=== PATIENT | male | born 1945 | race Caucasian/White ===

== ENCOUNTER 2024-07-17 10:54 | Outpatient (AMB) | payer MEDICARE, SELFPAY ==
--- NOTE | 2024-07-17 11:13 | A.OFFPC_ITS ---
Vital Signs 07/17/24 11:18 Height 6 ft 0.13 in Weight 162 lb 4 oz BMI 21.9 BP 110/56 L Blood Pressure Location Lt brachial Position Sitting Respiration 12 Pulse 91 Pulse Source Pulse Oximeter Pulse Oximetry (%) 96 Oxygen Delivery Method Room Air Intake Visit Reasons: EST CARE Intake Note: New patient visit [employer] Required: No Allergies No Known Allergies Allergy (Verified 07/17/24 11:14) Tobacco use date assessed: 07/17/24 Fall risk assessment: No Falls in past year Last assessed Fall Risk: 07/17/24 Dental Screening Dental Screen Date: 07/17/24 Did you have a dental visit in the last 12 months?: No Did you have a dental problem in the last 6 months where you did not have access to dental care?: No Was dental information given to patient?: Patient declined (has false teeth) HPI HPI Comments History of Present Illness Details This is a 79-year-old male with a past medical history of hypertension, hyperlipidemia, peripheral arterial disease and coronary artery disease [place] [facility] [place] [facility]. We have not received medical records yet. Peripheral arterial disease-bilateral lower extremities. Patient says this improved on recent studies that were done by [facility] vascular surgery. He has a follow up with them on 08/06/2024. Patient says he also has a right carotid artery occlusion, and the left carotid artery also has stenosis around 50%. They are monitoring this. He is on ASA 81 mg and rosuvastatin 5 mg daily. Coronary artery disease-CABG x [address] some [address] Candelario. Released from cardiology follow up. Denies chest pain, palpitations, shortness of breath, dizziness and leg swelling. HTN-treated with valsartan 160 mg daily. Hyperlipidiemia-treated with rosuvastatin 5 mg daily. Emphysema-never smoked but had a lot of second hand smoke exposure. States he is is up-to-date with RSV, COVID, flu and pneumonia vaccine. Patient discontinued routine screening for colon cancer citing his age. Declines PSA testing. ROS: Constitutional: No unexplained weight loss, fever, chills, fatigue or night sweats. Respiratory: No shortness of breath, cough or sputum production. Cardiovascular: No chest pain, chest pressure or chest discomfort. No palpitations or pedal edema. Gastrointestinal: No anorexia, nausea, vomiting or diarrhea. No abdominal pain Neurologic: No headache, dizziness, syncope Endocrine: No cold or heat intolerance. No polyuria or polydipsia. Physical exam: Constitutional: Alert, in no distress. Head: Normocephalic. Neck: Supple, Full range of motion. No lymphadenopathy. Respiratory: Clear to auscultation. Cardiovascular: Irregular rhythm, normal rate. No murmurs. Gastrointestinal: Abdomen soft, non-tender, non-distended. Normal bowel sounds. No palpable masses. Neurologic: No focal neurological deficits Extremities: Warm and well perfused. No clubbing, cyanosis or edema. trace bilateral lower extremity edema. Psychiatric: Normal mood and affect [facility] Medical History (Updated 07/17/24 @ 13:08 by RADAMES Giordano) Irregular heart rhythm Coronary artery disease PAC (premature atrial contraction) Essential hypertension Pure hypercholesterolemia PAD (peripheral artery disease) Surgical History (Updated 07/17/24 @ 13:13 by RADAMES Giordano) S/P partial lobectomy of lung S/P CABG x 4 Social History (Updated 07/17/24 @ 11:36 by Alice Iverson [facility]) Housing: House Alcohol intake: never Patient Tobacco Use Status: Never used Tobacco e-Cigarette/Vaping Use: Never Used Second Hand Smoke Exposure: No Cognitive needs: No Hearing needs: Yes (hearing aids) Vision needs: No Questionnaire PHQ-9 Over the last 2 weeks, how often have you been bothered by any of the following problems? 1. Little interest or pleasure in doing things: not at all 2. Feeling down, depressed, or hopeless: not at all 3. Trouble falling or staying asleep, or sleeping too much: not at all 4. Feeling tired or having little energy: not at all 5. Poor appetite or overeating: not at all 6. Feeling bad about yourself - or that you are a failure or have let yourself or your family down: not at all 7. Trouble concentrating on things, such as reading the newspaper or watching television: not at all 8. Moving or speaking so slowly that other people could have noticed. Or the opposite - being so fidgety or restless that you have been moving around a lot more than usual: not at all 9. Thoughts that you would be better off or of hurting yourself in some way: not at all Total score: 0 Depression Screening Interpretation: Negative Depression Screening Done: Yes 98780 - PHQ-9 Billing: Yes Source: Developed by Drs. Rober Garrido, Matilda Martin, Tyree Lorenzo and colleagues, with an educational madison from [employer]. Thrive Questionnaire Date Thrive assessed: 07/17/24 I am a: Patient What is your living situation today?: I have a steady place to live Within the past 12 months, did the food you bought not last and you didn't have the money to get more?: Never true Within the past 12 months, did you worry whether your food would run out before you got money to buy more?: Never true Do you have trouble paying for medicines?: No Do you have trouble getting transportation to medical appointments?: No Do you have trouble paying your heating and electricity bill?: No Do you have trouble taking care of your child, family member or friend?: No Do you have trouble with day-to-day activities such as bathing, preparing meals, shopping, managing finances, etc.?: No Are you currently unemployed and looking for a job?: No Are you interested in more education?: No Please select the resources that you would like help with: None Currently or been in a relationship where the following occur: No concerns reported THRIVE Score: 0 AUDIT C Alcohol Use Questionnaire (AUDIT-C) 1. How often do you have a drink containing alcohol?: Never 3. How often do you have six or more drinks on one occasion?: Never Total Score: 0 EDDIE-7 AMB Questionnaire EDDIE-7 Date EDDIE - 7 assessed: 07/17/24 Feeling nervous, anxious, or on edge: 0 = Not at all Not being able to stop or control worryin = Not at all Worrying too much about different things: 0 = Not at all Trouble relaxin = Not at all Being so restless that it is hard to sit still: 0 = Not at all Becoming easily annoyed or irritable: 0 = Not at all Feeling afraid as if something awful might happen: 0 = Not at all Total EDDIE-7 score (0-4 normal; 5-9 mild; 10-14 moderate; 15-21 severe): 0 Source: Developed by Matilda White, Tyree Lorenzo and colleagues, with an educational madison from [employer]. EDDIE-7 Assessment Billing EDDIE-7 Assessment Tool: EDDIE-7 Assessment 59953 Physical exam (Primary Care) Vital Signs: Last Vital Signs Pulse 91 07/17/24 11:18 Resp 12 07/17/24 11:18 BP 110/56 L 07/17/24 11:18 Pulse Ox 96 07/17/24 11:18 Oxygen Delivery Method Room Air 07/17/24 11:18 BMI result Body Mass Index 21.9 Tobacco/Smoking Status: Tobacco use Status Tobacco use date assessed 07/17/24 07/17/24 11:20 Patient Tobacco Use Status Never used Tobacco 07/17/24 11:36 e-Cigarette/Vaping Use Never Used 07/17/24 11:36 PHQ-9: PHQ-9 Score PHQ-9: Total score 0 07/17/24 11:37 Depression Screening Interpretation: Negative Thrive Assessment: Date of Thrive Assessment Date Thrive assessed 07/17/24 07/17/24 11:37 Currently or been in a relationship where the following occur: No concerns reported Office Procedures EKG Details: The patient's EKG shows sinus rhythm with premature atrial complexes and aberrant conduction with a ventricular rate of 73 beats per minute. [id number], Complete Coding Level of Care Code New Pt Level 4 (34766) Complex EM visit Add On G2211 Diagnoses Irregular heart rhythm I49.9 PAC (premature atrial contraction) I49.1 S/P CABG x 4 Z95.1 Essential hypertension I10 Pure hypercholesterolemia E78.00 PAD (peripheral artery disease) I73.9 Coronary artery disease I25.10 CPT Codes EKG - CPT: 28055-[id number], Complete ([id number]) Additional Codes EDDIE-7 Assessment Billing - EDDIE-7 Assessment Tool: EDDIE-7 Assessment 94503 ([id number]) PHQ-9 - 77226 - PHQ-9 Billing: Yes ([id number]) Assessment & Plan Assessment & Plan (1) Irregular heart rhythm: Code(s): I49.9 - Cardiac arrhythmia, unspecified Category: Medical (2) PAC (premature atrial contraction): Code(s): I49.1 - Atrial premature depolarization Category: Medical (3) S/P CABG x 4: Code(s): Z95.1 - Presence of aortocoronary bypass graft Category: Surgical (4) Essential hypertension: Code(s): I10 - Essential (primary) hypertension Category: Medical (5) Pure hypercholesterolemia: Code(s): E78.00 - Pure hypercholesterolemia, unspecified Category: Medical (6) PAD (peripheral artery disease): Code(s): I73.9 - Peripheral vascular disease, unspecified Category: Medical (7) Coronary artery disease: Code(s): I25.10 - Atherosclerotic heart disease of [place] coronary artery without angina pectoris Category: Medical Plan In summary this is a 79-year-old male with a past medical history of cardiovascular disease who [place] [facility] [place] His heart rhythm was irregular on evaluation, but his EKG shows sinus rhythm with PACs and no heart block or evidence of atrial fibrillation. He denies symptoms associated with PACs so we will continue to monitor. His blood pressure is well-controlled. He will return for fasting labs. Continue current medications. He is followed by [facility] vascular surgery for PID and has a follow up in July. Recommended Mediterranean diet and avoidance of smoking and alcohol. Follow up in 4 months. Orders: Orders Complete Blood Count no Diff Today E78.00 - Pure hypercholesterolemia, unspecified, I10 - Essential (primary) hypertension, I73.9 - Peripheral vascular disease, unspecified, Z95.1 - Presence of aortocoronary bypass graft Lipid Panel Today E78.00 - Pure hypercholesterolemia, unspecified, E78.5 - Hyperlipidemia, unspecified, I10 - Essential (primary) hypertension, I73.9 - Peripheral vascular disease, unspecified, Z95.1 - Presence of aortocoronary bypass graft TSH reflex Free T4 Today E78.00 - Pure hypercholesterolemia, unspecified, I10 - Essential (primary) hypertension, I73.9 - Peripheral vascular disease, unspecified, Z95.1 - Presence of aortocoronary bypass graft Comprehensive Met. Panel Today E78.00 - Pure hypercholesterolemia, unspecified, I10 - Essential (primary) hypertension, I73.9 - Peripheral vascular disease, unspecified, Z95.1 - Presence of aortocoronary bypass graft AMB EKG-In Office Today I49.9 - Cardiac arrhythmia, unspecified
[2024-07-17 11:18] VITALS: BP 110/56; PULSE 91; RESP 12; O2SAT 96; BMI 21.9
== END 2024-07-17 12:24 | disposition home or self-care (01) ==
LOC: HO.HMCFM 10:54
PROVIDERS: PCP Physician Assistant Medical; Visit Provider Physician Assistant Medical
DX: I49.9 Cardiac arrhythmia, unspecified (principal); I73.9 Peripheral vascular disease, unspecified; I49.1 Atrial premature depolarization; Z95.1 Presence of aortocoronary bypass graft; I10 Essential (primary) hypertension; E78.00 Pure hypercholesterolemia, unspecified; I25.10 Atherosclerotic heart disease of native coronary artery without angina pectoris

== ENCOUNTER → 2024-07-17 10:54 | Outpatient (BNVA) | payer MEDICARE, SELFPAY | PROVIDERS: PCP Physician Assistant Medical; Visit Provider Physician Assistant Medical | DX: I49.9 Cardiac arrhythmia, unspecified (principal); I49.1 Atrial premature depolarization; I10 Essential (primary) hypertension; E78.00 Pure hypercholesterolemia, unspecified; I73.9 Peripheral vascular disease, unspecified; I25.10 Atherosclerotic heart disease of native coronary artery without angina pectoris; J43.9 Emphysema, unspecified; Z79.899 Other long term (current) drug therapy; Z95.1 Presence of aortocoronary bypass graft | CPT/HCPCS: 93005; 96127; 99202 ==

== ENCOUNTER 2024-07-18 09:41 | Outpatient (REF) | payer MEDICARE, SELFPAY ==
[2024-07-18 11:37] LABS: Hematocrit 39.4 % (42.0-52.0); Hemoglobin 13.7 g/dl (14.0-18.0); Mean Corpuscular HGB Conc 34.8 g/dl (31.0-36.0); Mean Corpuscular Hemoglobin 31.8 pg (27.0-33.0); Mean Corpuscular Volume 91.4 fL (80.0-98.0); Mean Platelet Volume 8.6 fL (9.4-12.4); Platelet Count 279 X10*3/uL (160-400); Red Blood Count 4.31 X10*6/uL (4.60-5.80); Red Cell Distribution Width 13.3 % (11.0-16.0)
[2024-07-18 11:46] LABS: Alanine Aminotransferase 11 U/L (0-40); Albumin Level 3.8 g/dL (3.5-5.0); Alkaline Phosphatase 87 U/L (39-117); Anion Gap 11 (12-20); Aspartate Amino Transferase 25 U/L (5-37); Bilirubin Total 0.6 mg/dL (0.0-1.0); Blood Urea Nitrogen 21 mg/dL (9-16); Calcium 8.9 mg/dL (8.4-10.2); Carbon Dioxide 21 mmol/L (22-29); Chloride 112 mmol/L (96-108); Cholesterol 138 mg/dL (<200); Estimated Glomerular Filt Rate > 60; Glucose Random 121 mg/dL (60-115); HDL Cholesterol 43 mg/dL (>40); LDL Cholesterol Calculated 82 mg/dL (<100); Potassium 4.6 mmol/L (3.3-5.1); Sodium 139 mmol/L (135-145); Total Protein 7.2 g/dL (6.5-8.0); Triglycerides 65 mg/dL (<150)
[2024-07-18 12:04] LABS: TSH reflex Free T4 1.07 uIU/mL (0.32-4.0)
== END 2024-07-18 09:42 | disposition home or self-care (01) ==
LOC: HO.WFDLDS 09:41
PROVIDERS: Visit Provider Physician Assistant Medical
DX: I73.9 Peripheral vascular disease, unspecified (principal); E78.00 Pure hypercholesterolemia, unspecified; I10 Essential (primary) hypertension; Z95.1 Presence of aortocoronary bypass graft; E78.5 Hyperlipidemia, unspecified
CPT/HCPCS: 36415; 80053; 80061; 84443; 85027

== ENCOUNTER 2024-08-11 08:12 | Outpatient (AMB) | payer MEDICARE, SELFPAY ==
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
[2024-08-11 08:18] VITALS: BP 142/80; PULSE 90; RESP 13; TEMP 36.4; O2SAT 97; BMI 24.1
--- OUTSIDE RECORDS SUMMARY | 2024-08-11 08:33 | XMS_ITS ---
Author Organization [facility] Address [address] [place] [id number] Care Team Providers Care Diversity Manager Name Role Phone CHIO MENDENHALL Primary Care Provider [phone] Nichelle Salgado Unavailable [phone] ALLERGIES No Known Allergies REASON FOR VISIT f/u labs MEDICATIONS Medication SIG (Take, Route, Frequency, Duration) Notes Start Date End Date Status traZODone HCl 50 MG 1/2 tablet at bedtime as needed Orally Once a day 02/12/2024 Active Valsartan 160 MG 1 tablet Orally Once a day for 90 days 03/19/2024 Active metFORMIN HCl 500 MG TAKE 1 TABLET BY MOUTH TWICE A DAY WITH A MEAL FOR 30 DAYS Active Rosuvastatin Calcium 5 MG TAKE 1 TABLET BY MOUTH EVERY DAY Active Metoprolol Succinate ER 100 MG Oral metoprolol succinate ER 100 mg tablet,extended release 24 hr 12/29/2021 Not-Taking Aspirin Adult Low Strength 81 MG Oral aspirin 81 mg tablet,delayed release 12/29/2021 Active amLODIPine Besylate 5 MG TAKE 1 TABLET BY MOUTH EVERY DAY Active Prevagen 10 MG as directed Orally Active Levocetirizine Dihydrochloride 5 MG Oral levocetirizine 5 mg tablet 01/16/2022 Active Aricept 5 MG 1 tablet at bedtime Orally Once a day Not-Taking SOCIAL HISTORY Tobacco Use: Social History Observation Description Date Details (start date - stop date) Never Smoker NA - NA Sex Assigned At : Social History Observation Description Sex Assigned At Unknown Household Question Answer Notes Marital status: Number of adults in household: 2 Tobacco Use/Smoking Question Answer Notes Tobacco use: nonsmoker Section Notes: Lives in [place], [place] with VITAL SIGNS Blood pressure systolic 134 mm Hg 03/19/20 24 Blood pressure diastolic 62 mm Hg 024 Heart Rate 67 /min 03/19/2024 Height 65 in 03/19/2024 Weight 183.4 lbs 03/19/2024 BMI 30.52 kg/m2 03/19/2024 Oximetry 97 % 03/19/2024 Height-cm 165.10 cm 03/19/2024 Weight-kg 83.19 kg 03/19/2024 Encounters Encounter Location Date Provider Diagnosis [address] [id number] 03/19/2024 Nichelle Salgado Mixed hyperlipidemia E78.2 ; Pre-diabetes R73.03 ; Primary hypertension I10 and Primary insomnia F51.01 ASSESSMENTS Encounter Date Diagnosis Assessment Notes Treatment Notes Treatment Clinical Notes Section Notes 03/19/2024 Mixed hyperlipidemia (ICD-10 - E78.2) Continue current statin Low fat, low cholesterol diet Exercise Check lipids, LFTs 03/19/2024 Pre-diabetes (ICD-10 - R73.03) Lifestyle modification All patients with IGT, IFG, or an A1C of 5.7 to 6.4 percent (39 to 46 mmol/mol) (table 3) should be provided with a comprehensive lifestyle modification program that includes: Behavior modification Dietary therapy Physical activity Smoking cessation The goal of the lifestyle intervention is weight loss with return to normal glycemia. Regular reinforcement of the program is important for successful compliance. Although insulin resistance and impaired insulin secretion in type 2 diabetes have a substantial genetic component, they can also be influenced, both positively and negatively, by environmental and behavioral factors. Changes in lifestyle, including diet modification, weight loss, and exercise, slow progression of IGT to overt diabetes [4-7]. The beneficial effects of such intervention appear to continue after the original intervention Assess response to lifestyle intervention For patients with abnormal glucose metabolism (FPG 100 to 125 mg/dL or A1C 5.7 to 6.4 percent) participating in a lifestyle modification program, we reassess fasting glucose or A1C annually. Management if lifestyle intervention unsuccessful - For select patients (age <60 years and/or BMI greater than or equal to35 kg/m2, history of gestational diabetes) in whom lifestyle interventions fail to improve glycemic indices, we suggest metformin for diabetes prevention Exercise Although there is no one exercise prescription for all individuals, adults at high risk for diabetes are encouraged to perform 30 to 60 minutes of moderate-intensit y aerobic activity on most days of the week (at least 150 minutes of moderate-intensit y aerobic exercise per week). Diet We suggest choosing a dietary pattern of healthful foods, such as the Dietary Approaches to Stop Hypertension (DASH) or Mediterranean-sty le diet, rather than focusing on a specific nutrient. This approach allows greater flexibility and personal preference in diet and may improve long-term adherence Smoking Several large, prospective, observational studies have shown that cigarette smoking increases the risk of type 2 diabetes. The effect of smoking cessation on diabetes risk is variable and may depend upon individual patient factors. Smoking cessation may reduce diabetes risk by reducing systemic inflammation. On the other hand, smoking cessation is often associated with weight gain, which will increase the risk of diabetes. For individuals with IFG, IGT, or A1C of 5.7 to 6.4 percent (39 to 46 mmol/mol) who are candidates for obesity pharmacotherapy, semaglutide used for the treatment of obesity may help reduce the risk of progression to type 2 diabetes. 03/19/2024 Primary hypertension (ICD-10 - I10) Continue medication as directed Low-salt diet Weight management Regular exercise Yearly microalbumin 03/19/2024 Primary insomnia (ICD-10 - F51.01) Sleeping well means getting enough sleep to feel good and stay healthy. How much sleep is enough varies among people. The number of hours you sleep and how you feel when you wake up are both important. If you do not feel refreshed, you probably need more sleep. Another sign of not getting enough sleep is feeling tired during the day. Experts recommend that adults get at least 7 or more hours of sleep per day. Children and older adults need more sleep. Why is getting enough sleep important? Getting enough quality sleep is a basic part of good health. When your sleep suffers, your physical health, mood, and your thoughts can suffer too. You may find yourself feeling more grumpy or stressed. Not getting enough sleep also can lead to serious problems, including injury, accidents, anxiety, and depression. What might cause poor sleeping? Many things can cause sleep problems, including: Changes to your sleep schedule. Stress. Stress can be caused by fear about a single event, such as giving a speech. Or you may have ongoing stress, such as worry about work or school. Depression, anxiety, and other mental or emotional conditions. Changes in your sleep habits or surroundings. This includes changes that happen where you sleep, such as noise, light, or sleeping in a different bed. It also includes changes in your sleep pattern, such as having jet lag or working a late shift. Health problems, such as pain, breathing problems, and restless legs syndrome. Lack of regular exercise. Using alcohol, nicotine, or caffeine before bed. How can you help yourself? Here are some tips that may help you sleep more soundly and wake up feeling more refreshed. Your sleeping area Use your bedroom only for sleeping and sex. A bit of light reading may help you fall asleep. But if it doesn't, do your reading elsewhere in the house. Try not to use your TV, computer, smartphone, or tablet while you are in bed. Be sure your bed is big enough to stretch out comfortably, especially if you have a sleep partner. Keep your bedroom quiet, dark, and cool. Use curtains, blinds, or a sleep mask to block out light. To block out noise, use earplugs, soothing music, or a white noise machine. Your evening and bedtime routine Create a relaxing bedtime routine. You might want to take a warm shower or bath, or listen to soothing music. Go to bed at the same time every night. And get up at the same time every morning, even if you feel tired. What to avoid Limit caffeine (coffee, tea, caffeinated sodas) during the day, and don't have any for at least 6 hours before bedtime. Avoid drinking alcohol before bedtime. Alcohol can cause you to wake up more often during the night. Try not to smoke or use tobacco, especially in the evening. Nicotine can keep you awake. Limit naps during the day, especially close to bedtime. Avoid lying in bed awake for too long. If you can't fall asleep or if you wake up in the middle of the night and can't get back to sleep within about 20 minutes, get out of bed and go to another room until you feel sleepy. Avoid taking medicine right before bed that may keep you awake or make you feel hyper or energized. Your doctor can tell you if your medicine may do this and if you can take it earlier in the day. If you can't sleep Imagine yourself in a peaceful, pleasant scene. Focus on the details and feelings of being in a place that is relaxing. Get up and do a quiet or boring activity until you feel sleepy. Avoid drinking any liquids before going to bed to help prevent waking up often to use the bathroom. 03/19/2024 Other Total time spen t with patient 32 minutes which includes face to face visit, education and coordination of care. PLAN OF TREATMENT Medication Medication Name Sig Start Date Stop Date Notes traZODone HCl 50 MG 1/2 tablet at bedtime as needed Orally Once a day 02/12/2024 Valsartan 160 MG 1 tablet Orally Once a day for 90 days 03/19/2024 metFORMIN HCl 500 MG TAKE 1 TABLET BY MOUTH TWICE A DAY WITH A MEAL FOR 30 DAYS Rosuvastatin Calcium 5 MG TAKE 1 TABLET BY MOUTH EVERY DAY Valsartan 320 MG 1 tablet Orally Once a day 12/11/2023 Aspirin Adult Low Strength 81 MG Oral 12/29/2021 aspirin 81 mg tablet,delayed release amLODIPine Besylate 5 MG TAKE 1 TABLET B Y MOUTH EVERY DAY Prevagen 10 MG as directed Orally Levocetirizine Dihydrochloride 5 MG Oral 01/16/2022 levocetiriz ine 5 mg tablet Treatment Notes Assessment Notes Mixed hyperlipidemia Continue current statin Low fat, low cholesterol diet Exercise Check lipids, LFTs Pre-diabetes Lifestyle modification All patients with IGT, IFG, or an A1C of 5.7 to 6.4 percent (39 to 46 mmol/mol) (table 3) should be provided with a comprehensive lifestyle modification program that includes: Behavior modification Dietary therapy Physical activity Smoking cessation The goal of the lifestyle intervention is weight loss with return to normal glycemia. Regular reinforcement of the program is important for successful compliance. Although insulin resistance and impaired insulin secretion in type 2 diabetes have a substantial genetic component, they can also be influenced, both positively and negatively, by environmental and behavioral factors. Changes in lifestyle, including diet modification, weight loss, and exercise, slow progression of IGT to overt diabetes [4-7]. The beneficial effects of such intervention appear to continue after the original intervention Assess response to lifestyle intervention For patients with abnormal glucose metabolism (FPG 100 to 125 mg/dL or A1C 5.7 to 6.4 percent) participating in a lifestyle modification program, we reassess fasting glucose or A1C annually. Management if lifestyle intervention unsuccessful - For select patients (age <60 years and/or BMI greater than or equal to35 kg/m2, history of gestational diabetes) in whom lifestyle interventions fail to improve glycemic indices, we suggest metformin for diabetes prevention Exercise Although there is no one exercise prescription for all individuals, adults at high risk for diabetes are encouraged to perform 30 to 60 minutes of moderate-intensity aerobic activity on most days of the week (at least 150 minutes of moderate-intensity aerobic exercise per week). Diet We suggest choosing a dietary pattern of healthful foods, such as the Dietary Approaches to Stop Hypertension (DASH) or Mediterranean-style diet, rather than focusing on a specific nutrient. This approach allows greater flexibility and personal preference in diet and may improve long-term adherence Smoking Several large, prospective, observational studies have shown that cigarette smoking increases the risk of type 2 diabetes. The effect of smoking cessation on diabetes risk is variable and may depend upon individual patient factors. Smoking cessation may reduce diabetes risk by reducing systemic inflammation. On the other hand, smoking cessation is often associated with weight gain, which will increase the risk of diabetes. For individuals with IFG, IGT, or A1C of 5.7 to 6.4 percent (39 to 46 mmol/mol) who are candidates for obesity pharmacotherapy, semaglutide used for the treatment of obesity may help reduce the risk of progression to type 2 diabetes. Primary hypertension Continue medication as directed Low-salt diet Weight management Regular exercise Yearly microalbumin Primary insomnia Sleeping well means getting enough sleep to feel good and stay healthy. How much sleep is enough varies among people. The number of hours you sleep and how you feel when you wake up are both important. If you do not feel refreshed, you probably need more sleep. Another sign of not getting enough sleep is feeling tired during the day. Experts recommend that adults get at least 7 or more hours of sleep per day. Children and older adults need more sleep. Why is getting enough sleep important? Getting enough quality sleep is a basic part of good health. When your sleep suffers, your physical health, mood, and your thoughts can suffer too. You may find yourself feeling more grumpy or stressed. Not getting enough sleep also can lead to serious problems, including injury, accidents, anxiety, and depression. What might cause poor sleeping? Many things can cause sleep problems, including: Changes to your sleep schedule. Stress. Stress can be caused by fear about a single event, such as giving a speech. Or you may have ongoing stress, such as worry about work or school. Depression, anxiety, and other mental or emotional conditions. Changes in your sleep habits or surroundings. This includes changes that happen where you sleep, such as noise, light, or sleeping in a different bed. It also includes changes in your sleep pattern, such as having jet lag or working a late shift. Health problems, such as pain, breathing problems, and restless legs syndrome. Lack of regular exercise. Using alcohol, nicotine, or caffeine before bed. How can you help yourself? Here are some tips that may help you sleep more soundly and wake up feeling more refreshed. Your sleeping area Use your bedroom only for sleeping and sex. A bit of light reading may help you fall asleep. But if it doesn't, do your reading elsewhere in the house. Try not to use your TV, computer, smartphone, or tablet while you are in bed. Be sure your bed is big enough to stretch out comfortably, especially if you have a sleep partner. Keep your bedroom quiet, dark, and cool. Use curtains, blinds, or a sleep mask to block out light. To block out noise, use earplugs, soothing music, or a white noise machine. Your evening and bedtime routine Create a relaxing bedtime routine. You might want to take a warm shower or bath, or listen to soothing music. Go to bed at the same time every night. And get up at the same time every morning, even if you feel tired. What to avoid Limit caffeine (coffee, tea, caffeinated sodas) during the day, and don't have any for at least 6 hours before bedtime. Avoid drinking alcohol before bedtime. Alcohol can cause you to wake up more often during the night. Try not to smoke or use tobacco, especially in the evening. Nicotine can keep you awake. Limit naps during the day, especially close to bedtime. Avoid lying in bed awake for too long. If you can't fall asleep or if you wake up in the middle of the night and can't get back to sleep within about 20 minutes, get out of bed and go to another room until you feel sleepy. Avoid taking medicine right before bed that may keep you awake or make you feel hyper or energized. Your doctor can tell you if your medicine may do this and if you can take it earlier in the day. If you can't sleep Imagine yourself in a peaceful, pleasant scene. Focus on the details and feelings of being in a place that is relaxing. Get up and do a quiet or boring activity until you feel sleepy. Avoid drinking any liquids before going to bed to help prevent waking up often to use the bathroom. Other Total time spent wit h patient 32 minutes which includes face to face visit, education and coordination of care. Future Test Test Name Order Date COMPREHENSIVE METABOLIC PANEL (75622) CBC (INCLUDES DIFF/PLT) (6399) CARDIO IQ(R) HS CRP (94322) 03/19/2024 CARDIO IQ(R) HEMOGLOBIN A1c (64138) 03/01 CARDIO IQ(R) HOMOCYSTEINE (36511) 2023 CARDIO IQ(R) VITAMIN D, 25 HYDROXY (9173 5) 03/19/2024 Next Appt Details Follow Up: 3 Weeks,3 Months, Reason: FU BP; FU 3M Labs Progress Notes * YEMI GILMOREDOB: 5 (79 yo M)Acc No.[id number]:03/19/2024 Progress Notes Patient:??MANDO YEMI Provider:??Nichelle Salgado DNP :1945?Age:79 Y?Sex:Ma le Date:03/19/2024 Phone: Address:[address] [place] [address], [id number] Pcp:CHIO MENDENHALL Subjective: * Chief Complaints: * ?F/u labs * HPI: ?Patient Care Team:?Software Product Specialist:??Dr. Glass.? Providers/Specialists: Vascular: Dr. Funes. ?Visit info:? Yemi presents today for f/u lab review. ?He notes that the Valsartan 320mg is too strong - states he felt pain in chest after taking. He has since been cutting in 1/2 and taking 1/2 daily and no longer getting pain in chest feeling. * ROS:?Reviewed. * Medical History:?? * Surgical History:??Rt. lung, Lobectomy (lung infection) 1970Angioplasty 1987, 1997 o4Womtrbs Cath (Quadruple Bypass) 2010Cataract Surgery * Hospitalization/Major Diagno stic Procedure:?? * Family History:??Father: dec eased 72 yrs, Bladder CA.??Mother: 82 yrs, Alzheimer's.??Sister: alive, Alzheimer's.??2 son(s) , 1 daughter(s) - healthy. .?? * Social History:?Tobacco Use:??Tobacco Use/Smoking??Tobacco use:??nonsmoker.?Drugs/Alcohol:??Do you smoke marijuana?: Denies. Do you drink alcohol?: Yes, Socially. ?Household:??Household??Marital status:??,??Number of adults in household:??2.?Miscellaneous:??Exercise: daily, for 30-60 minutes a day. Occupation: retired. ?Lives in [place], [place] with . * Medications:??TakingPrevagen 10 MG Capsule as directed Orally Levocetirizine Dihydrochloride 5 MG Tablet Oral , Notes to Pharmacist: levocetirizine 5 mg tabletamLODIPine Besylate 5 MG Tablet TAKE 1 TABLET BY MOUTH EVERY DAY Aspirin Adult Low Strength 81 MG Tablet Delayed Release Oral , Notes to Pharmacist: aspirin 81 mg tablet,delayed releaseValsartan 320 MG Tablet 1 tablet Orally Once a day metFORMIN HCl 500 MG Tablet TAKE 1 TABLET BY MOUTH TWICE A DAY WITH A MEAL FOR 30 DAYS Rosuvastatin Calcium 5 MG Tablet TAKE 1 TABLET BY MOUTH EVERY DAY traZODone HCl 50 MG Tablet 1/2 tablet at bedtime as needed Orally Once a day Taking Prevagen 10 MG Capsule as directed Orally Taking Levocetirizine Dihydrochloride 5 MG Tablet Oral , Notes to Pharmacist: levocetirizine 5 mg tabletTaking amLODIPine Besylate 5 MG Tablet TAKE 1 TABLET BY MOUTH EVERY DAY Taking Aspirin Adult Low Strength 81 MG Tablet Delayed Release Oral , Notes to Pharmacist: aspirin 81 mg tablet,delayed releaseTaking Valsartan 320 MG Tablet 1 tablet Orally Once a day Taking metFORMIN HCl 500 MG Tablet TAKE 1 TABLET BY MOUTH TWICE A DAY WITH A MEAL FOR 30 DAYS Taking Rosuvastatin Calcium 5 MG Tablet TAKE 1 TABLET BY MOUTH EVERY DAY Taking traZODone HCl 50 MG Tablet 1/2 tablet at bedtime as needed Orally Once a day Not- TakingAricept 5 MG Tablet 1 tablet at bedtime Orally Once a day Metoprolol Succinate ER 100 MG Tablet Extended Release 24 Hour Oral , Notes to Pharmacist: metoprolol succinate ER 100 mg tablet,extended release 24 hrMedication List reviewed and reconciled with the patientNot-Taking Aricept 5 MG Tablet 1 tablet at bedtime Orally Once a day Not-Taking Metoprolol Succinate ER 100 MG Tablet Extended Release 24 Hour Oral , Notes to Pharmacist: metoprolol succinate ER 100 mg tablet,extended release 24 hrMedication List reviewed and reconciled with the patient * Allergies:??N.K.D.A.no[Aller gies Verified] Objective: * Vitals:??BP: 134/62 mm Hg, H R: 67 /min, Oxygen sat %: 97 %, Wt: 183.4 lbs, Wt- k.19 kg, Ht: 65 in, Ht-cm: 165.10 cm, BMI: 30.52 Index, Body Surface Area: 1.95. * ?Past Orders: ?Lab:CARDIO IQ(R) LIPID PANEL ([id number]) (Order Date - 02/12/2024) (Collection Date & Time - 03/05/2024 09:08 AM) ? Value Reference Range ?TRIGLYCERIDES 63 <150 - mg/dL ?CHOLESTEROL, TOTAL 134 <200 - mg/dL ?HDL CHOLESTEROL 49 >39 - mg/dL ?LDL-CHOLESTEROL 71 <100 - mg/dL (calc) ?CHOL/HDLC RATIO 2.7 <5.0 - calc ?NON HDL CHOLESTEROL 85 <130 - mg/dL (calc) ?Lab:COMPREHENSIVE META BOLIC PANEL ([id number]) (Order Date - 02/12/2024) (Collection Date & Time - 03/05/2024 09:08 AM) ? Value Reference Range ?GLUCOSE 114 H 65-9 9 - mg/dL ?UREA NITROGEN (BUN) 20 7-25 - mg/dL ?CREATININE 1.13 0 .70-1.28 - mg/dL ?BUN/CREATININE RATIO SEE NOTE: 10-19 - (calc) ?SODIUM 140 135-1 46 - mmol/L ?POTASSIUM 4.9 3. 5-5.3 - mmol/L ?CHLORIDE 107 98- 110 - mmol/L ?CARBON DIOXIDE 24 20-32 - mmol/L ?CALCIUM 9.1 8.6- 10.3 - mg/dL ?PROTEIN, TOTAL 6.4 6.1-8.1 - g/dL ?ALBUMIN 4.0 3.6- 5.1 - g/dL ?GLOBULIN 2.4 1.9 -3.7 - g/dL (calc) ?ALBUMIN/GLOB ULIN RATIO 1.7 1.0-2.5 - (calc) ?BILIRUBIN, TOTAL 0.5 0.2-1.2 - mg/dL ?ALKALINE PHOSPHATASE 84 35-144 - U/L ?AST 14 10-35 - U/L ?ALT 6 L 9-46 - U /L ?EGFR 66 > OR = 60 - mL/min/1.73m2 ?Lab:CARDIO IQ(R) HS CR P ([id number]) (Order Date - 02/12/2024) (Collection Date & Time - 03/05/2024 09:08 AM) ? Value Reference Range ?HS CRP 1.2 H <1.0 - mg/L ?Lab:CARDIO IQ(R) HEMOG LOBIN A1c (04927) (Order Date - 02/12/2024) (Collection Date & Time - 03/05/2024 09:08 AM) ? Value Reference Range ?HEMOGLOBIN A1c 6.5 H <5.7 - % ?Lab:CARDIO IQ(R) APOLI POPROTEIN A1 ([id number]) (Order Date - 02/12/2024) (Collection Date & Time - 03/05/2024 09:08 AM) ? Value Reference Range ?APOLIPOPROTEIN A1 122 >114 - mg/dL ?Lab:CARDIO IQ(R) APOL IPOPROTEIN B (83247) (Order Date - 02/12/2024) (Collection Date & Time - 03/05/2024 09:08 AM) ? Value Reference Range ?APOLIPOPROTEIN B 71 <90 - mg/dL ?Lab:CARDIO IQ(R) HOMOC YSTEINE (18734) (Order Date - 02/12/2024) (Collection Date & Time - 03/05/2024 09:08 AM) ? Value Reference Range ?HOMOCYSTEINE 19.0 H <11.4 - umol/L ?Lab:CARDIO IQ(R) VITAM IN D, 25 HYDROXY (87585) (Order Date - 02/12/2024) (Collection Date & Time - 03/05/2024 09:08 AM) ? Value Reference Range ?VITAMIN D, 25-OH, D2 <4 - ng/mL ?VITAMIN D, 25-OH, D3 31 - ng/mL ?VITAMIN D, 2 5-OH, TOTAL 31 30-100 - ng/mL * Examination: ?General Examination: ?General appearance: no acute distress, speaking full sentences, thoughts clear and appropriate. ? Head: normocephalic, atraumatic. ? Eyes: sclera anicteric. ? Oral cavity: with good dentition, tongue is midline. ? Lungs: non-labored breathing, no audible shortness of breath or wheezing. ? Neurologic: alert and oriented, cooperative with exam. ? Psych: with good judgement and insight, speech is clear and coherent, normal affect / mood. Assessment: * Assessment: 1.??Mixed hyperlipidemia - E 78.2 (Primary)??2.??Pre-diabetes - R73.03??3.??Primary hypertension - I10??4.??Primary insomnia - F51.01?? Plan: * Treatment: 2.??Pre-diabetes?? Continue metFORMIN HCl Tablet, 500 MG, TAKE 1 TABLET BY MOUTH TWICE A DAY WITH A MEAL FOR 30 DAYS.?LAB: CARDIO IQ(R) HEMOGLOBIN A1c (04821) (Ordered for 03/19/2024) ?LAB: CARDIO IQ(R) HOMOCYSTEINE (88274) (Ordered for 03/19/2024) ?LAB: CARDIO IQ(R) HS CRP (45614) (Ordered for 03/19/2024) ?LAB: CARDIO IQ(R) VITAMIN D, 25 HYDROXY (75728) (Ordered for 03/19/2024) ?LAB: CBC (INCLUDES DIFF/PLT) (5299) (Ordered for 03/19/2024) ?LAB: COMPREHENSIVE METABOLIC PANEL (50328) (Ordered for 03/19/2024) Notes: Lifestyle modification All patients with IGT, IFG, or an A1C of 5.7 to 6.4 percent (39 to 46 mmol/mol) (table 3) should be provided with a comprehensive lifestyle modification program that includes: Behavior modification Dietary therapy Physical activity Smoking cessation The goal of the lifestyle intervention is weight loss with return to normal glycemia. Regular reinforcement of the program is important for successful compliance. Although insulin resistance and impaired insulin secretion in type 2 diabetes have a substantial genetic component, they can also be influenced, both positively and negatively, by environmental and behavioral factors. Changes in lifestyle, including diet modification, weight loss, and exercise, slow progression of IGT to overt diabetes [4-7]. The beneficial effects of such intervention appear to continue after the original intervention Assess response to lifestyle intervention For patients with abnormal glucose metabolism (FPG 100 to 125 mg/dL or A1C 5.7 to 6.4 percent) participating in a lifestyle modification program, we reassess fasting glucose or A1C annually. Management if lifestyle intervention unsuccessful - For select patients (age <60 years and/or BMI greater than or equal to35 kg/m2, history of gestational diabetes) in whom lifestyle interventions fail to improve glycemic indices, we suggest metformin for diabetes prevention Exercise Although there is no one exercise prescription for all individuals, adults at high risk for diabetes are encouraged to perform 30 to 60 minutes of moderate-intensity aerobic activity on most days of the week (at least 150 minutes of moderate-intensity aerobic exercise per week). Diet We suggest choosing a dietary pattern of healthful foods, such as the Dietary Approaches to Stop Hypertension (DASH) or Mediterranean-style diet, rather than focusing on a specific nutrient. This approach allows greater flexibility and personal preference in diet and may improve long-term adherence Smoking Several large, prospective, observational studies have shown that cigarette smoking increases the risk of type 2 diabetes. The effect of smoking cessation on diabetes risk is variable and may depend upon individual patient factors. Smoking cessation may reduce diabetes risk by reducing systemic inflammation. On the other hand, smoking cessation is often associated with weight gain, which will increase the risk of diabetes. For individuals with IFG, IGT, or A1C of 5.7 to 6.4 percent (39 to 46 mmol/mol) who are candidates for obesity pharmacotherapy, semaglutide used for the treatment of obesity may help reduce the risk of progression to type 2 diabetes.? 3.??Primary hypertension?? Continue amLODIPine Besylate Tablet, 5 MG, TAKE 1 TABLET BY MOUTH EVERY DAY;??Continue Aspirin Adult Low Strength Tablet Delayed Release, 81 MG, Oral, Notes to Pharmacist: aspirin 81 mg tablet,delayed release;??Stop Valsartan Tablet, 320 MG, 1 tablet, Orally, Once a day;??Start Valsartan Tablet, 160 MG, 1 tablet, Orally, Once a day, 90 days, 90 Tablet, Refills 1.?LAB: CARDIO IQ(R) HEMOGLOBIN A1c (35671) (Ordered for 03/19/2024) ?LAB: CARDIO IQ(R) HOMOCYSTEINE (21415) (Ordered for 03/19/2024) ?LAB: CARDIO IQ(R) HS CRP (90413) (Ordered for 03/19/2024) ?LAB: CARDIO IQ(R) VITAMIN D, 25 HYDROXY (21547) (Ordered for 03/19/2024) ?LAB: CBC (INCLUDES DIFF/PLT) (6399) (Ordered for 03/19/2024) ?LAB: COMPREHENSIVE METABOLIC PANEL (33943) (Ordered for 03/19/2024) Notes: Continue medication as directed Low-salt diet Weight management Regular exercise Yearly microalbumin? 4.??Primary insomnia?? Continue traZODone HCl Tablet, 50 MG, 1/2 tablet at bedtime as needed, Orally, Once a day.?LAB: CARDIO IQ(R) HEMOGLOBIN A1c (30637) (Ordered for 03/19/2024) ?LAB: CARDIO IQ(R) HOMOCYSTEINE (61550) (Ordered for 03/19/2024) ?LAB: CARDIO IQ(R) HS CRP (41618) (Ordered for 03/19/2024) ?LAB: CARDIO IQ(R) VITAMIN D, 25 HYDROXY (74581) (Ordered for 03/19/2024) ?LAB: CBC (INCLUDES DIFF/PLT) (8399) (Ordered for 03/19/2024) ?LAB: COMPREHENSIVE METABOLIC PANEL (11048) (Ordered for 03/19/2024) Notes: Sleeping well means getting enough sleep to feel good and stay healthy. How much sleep is enough varies among people. The number of hours you sleep and how you feel when you wake up are both important. If you do not feel refreshed, you probably need more sleep. Another sign of not getting enough sleep is feeling tired during the day. Experts recommend that adults get at least 7 or more hours of sleep per day. Children and older adults need more sleep. Why is getting enough sleep important? Getting enough quality sleep is a basic part of good health. When your sleep suffers, your physical health, mood, and your thoughts can suffer too. You may find yourself feeling more grumpy or stressed. Not getting enough sleep also can lead to serious problems, including injury, accidents, anxiety, and depression. What might cause poor sleeping? Many things can cause sleep problems, including: Changes to your sleep schedule. Stress. Stress can be caused by fear about a single event, such as giving a speech. Or you may have ongoing stress, such as worry about work or school. Depression, anxiety, and other mental or emotional conditions. Changes in your sleep habits or surroundings. This includes changes that happen where you sleep, such as noise, light, or sleeping in a different bed. It also includes changes in your sleep pattern, such as having jet lag or working a late shift. Health problems, such as pain, breathing problems, and restless legs syndrome. Lack of regular exercise. Using alcohol, nicotine, or caffeine before bed. How can you help yourself? Here are some tips that may help you sleep more soundly and wake up feeling more refreshed. Your sleeping area Use your bedroom only for sleeping and sex. A bit of light reading may help you fall asleep. But if it doesn't, do your reading elsewhere in the house. Try not to use your TV, computer, smartphone, or tablet while you are in bed. Be sure your bed is big enough to stretch out comfortably, especially if you have a sleep partner. Keep your bedroom quiet, dark, and cool. Use curtains, blinds, or a sleep mask to block out light. To block out noise, use earplugs, soothing music, or a white noise machine. Your evening and bedtime routine Create a relaxing bedtime routine. You might want to take a warm shower or bath, or listen to soothing music. Go to bed at the same time every night. And get up at the same time every morning, even if you feel tired. What to avoid Limit caffeine (coffee, tea, caffeinated sodas) during the day, and don't have any for at least 6 hours before bedtime. Avoid drinking alcohol before bedtime. Alcohol can cause you to wake up more often during the night. Try not to smoke or use tobacco, especially in the evening. Nicotine can keep you awake. Limit naps during the day, especially close to bedtime. Avoid lying in bed awake for too long. If you can't fall asleep or if you wake up in the middle of the night and can't get back to sleep within about 20 minutes, get out of bed and go to another room until you feel sleepy. Avoid taking medicine right before bed that may keep you awake or make you feel hyper or energized. Your doctor can tell you if your medicine may do this and if you can take it earlier in the day. If you can't sleep Imagine yourself in a peaceful, pleasant scene. Focus on the details and feelings of being in a place that is relaxing. Get up and do a quiet or boring activity until you feel sleepy. Avoid drinking any liquids before going to bed to help prevent waking up often to use the bathroom.? 5.??Others?? Continue Prevagen Capsule, 10 MG, as directed, Orally;??Continue Levocetirizine Dihydrochloride Tablet, 5 MG, Oral, Notes to Pharmacist: levocetirizine 5 mg tablet.? Notes: Total time spent with patient 32 minutes which includes face to face visit, education and coordination of care.? * Procedure Codes:??G8783 NORM AL BP READING DOC F/U NOT RQR * Preventive Medicine:?Last CPE: 12/29/2021 @ [facility]; 01/18/23 DEXA: No Colonoscopy: Yes, approx. 2011 Endoscopy: No Covid Vac: Yes Flu Vac: Yes Shingles Vac: No PV: No. * Follow Up:??3 Weeks,3 Months (Reason: FU BP; FU 3M Labs) * Billing Information: * Visit Code:?? 06907 Office Visit, Est Pt., Level 4. * Procedure Codes:?? G8783 NORMAL BP READING DOC F/U NOT RQR. * Sign off status: Completed true * Provider:??Nichelle Salgado DNP Date:?? History and Physical Notes * HPI (History of Present Illness) Category Sub-Category Detail Notes Category Not es Patient Care Team Software Product Specialist: Dr. Glass Providers /Specialists: Vascular: Dr. Funes Examination Category Sub-Category Detail Notes Category Not es General Examination General appearance: no acute distress, speaking full sentences, thoughts clear and appropriate. Head: normocephalic, atraumatic. Eyes: sclera anicteric. Oral cavity: with good dentition, tongue is midline. Lungs: non-labored breathing, no audible shortness of breath or wheezing. Neurologic: alert and oriented, cooperative with exam. Psych: with good judgement and insight, speech is clear and coherent, normal affect / mood.
--- OUTSIDE RECORDS SUMMARY | 2024-08-11 08:33 | XMS_ITS | Patient Health Record ---
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 25-OHD3 indicates both endogenous production and supplementation. 25-OHD2 is an indicator of exogenous sources such as diet or supplementation. Therapy is based on measurement of Total 25-OHD, with levels <20 ng/mL indicative of Vitamin D deficiency, while levels between 20 ng/mL and 30 ng/mL suggest insufficiency. Optimal levels are > or = 30 ng/mL. For additional information, please refer to http://education.[employer].The Finance Scholar/faq/ZFY493 (This link is being provided for informational/ educational purposes only.) VITAMIN D, 25-OH, D3 31 This test was developed and its analytical performance characteristics have been determined by [facility] [place]. It has not been cleared or approved by the U.S. Food and Drug Administration. This assay has been validated pursuant to the CLIA regulations and is used for clinical purposes. VITAMIN D, 25-OH, D2 <4 This test was developed and its analytical performance characteristics have been determined by [facility] [place]. It has not been cleared or approved by the U.S. Food and Drug Administration. This assay has been validated pursuant to the CLIA regulations and is used for clinical purposes. CARDIO IQ(R) HOMOCYSTEINE (9 1733) Reviewed date:03/13/2024 08:15:38 AM Interpretation: Performing Lab:Linda, [employer] [place] [address], [address], [id number] Tom Serrano PhD,[facility] Notes/Report: FASTING FASTING:YES FASTING: YES HOMOCYSTEINE 19.0 <11.4 umol/L Homocysteine is increased by functional deficiency of folate or vitamin B12. Testing for methylmalonic acid differentiates between these deficiencies. Other causes of increased homocysteine include renal failure, folate antagonists such as methotrexate and phenytoin, and exposure to nitrous oxide. Selhub J, et al. Kasey Completion Supervisor Med. 1999;131(5):331-9. Homocysteine is increased by functional deficiency of folate or vitamin B12. Testing for methylmalonic acid differentiates between these deficiencies. Other causes of increased homocysteine include renal failure, folate antagonists such as methotrexate and phenytoin, and exposure to nitrous oxide. Selhub J, et al., Kasey Completion Supervisor Med. 1999;131(5):331-9. CARDIO IQ(R) APOLIPOPROTEIN B (06508) Reviewed date:03/13/2024 08:10:31 AM Interpretation: Performing Lab:Diane [employer] [facility], [address], [id number] Tom Serrano PhD,[facility] Notes/Report: FASTING FASTING:YES FASTING: YES APOLIPOPROTEIN B 71 <90 mg/dL Risk: Optimal <90 mg/dL; Moderate 90-119 mg/dL; High >= 120 mg/dL; Cardiovascular event risk category cut points (optimal, moderate, high) are based on National Lipid Association recommendations- Orozco TA et al. J of Clin Lipid. 2015; 9: 129-169 and Chetna PS et al. Endocr Pract. 2017;23(Suppl 2):1-87. CARDIO IQ(R) APOLIPOPROTEIN A1 (19502) Reviewed date:03/13/2024 08:10:31 AM Interpretation: Performing Lab:Linda4, [employer] [address] [employer], [address], [id number] Tom Serrano PhD,[facility] Notes/Report: FASTING FASTING:YES FASTING: YES APOLIPOPROTEIN A1 122 >114 mg/dL Risk, Male: Optimal >= 115 mg/dL; High < 115 mg/dL; Risk, Female: Optimal >= 125 mg/dL; High <125 mg/dL; Cardiovascular event risk category cut points (optimal, high) are based on the AMORIS study Jf G et al. J Completion Supervisor Med. 2004;255:188-205. CARDIO IQ(R) HEMOGLOBIN A1c (87148) Reviewed date:03/13/2024 08:15:42 AM Interpretation: Performing Lab:Linda4, [employer].[address], [address], [id number] Tom Serrano PhD,[facility] Notes/Report: FASTING FASTING:YES FASTING: YES HEMOGLOBIN A1c 6.5 <5.7 % For someone without known diabetes, a hemoglobin A1c value of 6.5% or greater indicates that they may have diabetes, and this should be confirmed with a follow-up test. For someone with known diabetes, a value <7% indicates that their diabetes is well controlled and a value greater than or equal to 7% indicates suboptimal control. A1c targets should be individualized based on duration of diabetes, age, comorbid conditions, and other considerations. Currently, no consensus exists for use of hemoglobin A1c for diagnosis of diabetes for children. This test was performed on the Vic[employer] chong c503 platform. Effective 07/03/2023, a change in test platforms from the [employer] to the [employer] chong c503 may have shifted HbA1c results compared to historical results. Based on laboratory validation testing conducted at [facility], the Vicenta platform relative to the [employer] platform had an average increase in HbA1c value of <=0.3%. This difference is within accepted variability established by the National Glycohemoglobin Standardization Program. Note that not all individuals will have had a shift in their results and direct comparisons between historical and current results for testing conducted on different platforms is not recommended. CARDIO IQ(R) HS CRP (37897) Reviewed date:03/13/2024 08:15:47 AM Interpretation: Performing Lab:Adelina [facility] [address], [address], [id number] Tom Serrano PhD,[facility] Notes/Report: FASTING FASTING:YES FASTING: YES HS CRP 1.2 <1.0 mg/L Reference Range: Optimal <1.0 mg/L, according to Chetan SMITH et al. Endocr Pract.2017;23(Suppl 2):1-87. The AHA/CDC Guidelines recommend hs-CRP ranges for identifying Relative Cardiovascular Risk in patients ages >17 years: <1.0 mg/L Lower Relative Cardiovascular Risk; 1.0-3.0 mg/L Average Relative Cardiovascular Risk; 3.1-10.0 mg/L Higher Relative Cardiovascular Risk. If result is between 3.1 and 10.0 mg/L, consider retesting in 1-2 weeks to exclude a benign transient elevation secondary to infection or inflammation from the baseline CRP value. Persistent elevations of >10.0 mg/L upon retesting may be associated with infection and inflammation. The AHA/CDC recommendations are based on Stephanie Legegtt, Devon WALTERS, et al. Markers of inflammation and cardiovascular disease: application to clinical and public health practice: A statement for healthcare professionals from the Centers for Disease Control and Prevention and the [place] [employer]. Circulation 2003; 107(3): 499-511. For ages >17 Years: hs-CRP mg/L Risk According to AHA/CDC Guidelines <1.0 Lower relative cardiovascular risk. 1.0-3.0 Average relative cardiovascular risk. 3.1-10.0 Higher relative cardiovascular risk. Consider retesting in 1 to 2 weeks to exclude a benign transient elevation in the baseline CRP value secondary to infection or inflammation. >10.0 Persistent elevation, upon retesting, may be associated with infection and inflammation. Stephanie Leggett, Devon WALTERS, et al. Markers of inflammation and cardiovascular disease: application to clinical and public health practice: A statement for healthcare professionals from the Centers for Disease Control and Prevention and the [place] Heart Association. Circulation 2003; 107(3): 499-511. COMPREHENSIVE METABOLIC ROBEL Rocha (25988) Reviewed date:03/06/2024 09:19:48 AM Interpretation: Performing Lab:NL2, [facility] [id number] [facility] Lewis Boldenoksana Notes/Report: FASTING FASTING:YES FASTING: YES GLUCOSE 114 65-99 mg/dL Fasting reference interval For someone without known diabetes, a glucose value between 100 and 125 mg/dL is consistent with prediabetes and should be confirmed with a follow-up test. UREA NITROGEN (BUN) 20 7-25 mg/dL CREATININE 1.13 0.70-1.28 mg/dL EGFR 66 > OR = 60 mL/min/1.73m2 BUN/CREATININE RATIO SEE NOTE: 6-22 (calc) Not Reported: BUN and Creatinine are within reference range. SODIUM 140 135-146 mmol/L POTASSIUM 4.9 3.5-5.3 mmol/L CHLORIDE 107 98-110 mmol/L CARBON DIOXIDE 24 20-32 mmol/L CALCIUM 9.1 8.6-10.3 mg/dL PROTEIN, TOTAL 6.4 6.1-8.1 g/dL ALBUMIN 4.0 3.6-5.1 g/dL GLOBULIN 2.4 1.9-3.7 g/dL (calc) ALBUMIN/GLOBULIN RATIO 1.7 1.0-2.5 (calc) BILIRUBIN, TOTAL 0.5 0.2-1.2 mg/dL ALKALINE PHOSPHATASE 84 35-144 U/L AST 14 10-35 U/L ALT 6 9-46 U/L CARDIO IQ(R) LIPID PANEL (91 716) Reviewed date:03/13/2024 08:10:31 AM Interpretation: Performing Lab:Adelina, [facility], [address], [id number] Tom Serrano PhD,[facility] Notes/Report: FASTING FASTING:YES FASTING: YES CHOLESTEROL, TOTAL 134 <200 mg/dL HDL CHOLESTEROL 49 >39 mg/dL TRIGLYCERIDES 63 <150 mg/dL LDL-CHOLESTEROL 71 <100 mg/dL (calc) Desirable range <100 mg/dL for primary prevention; <70 mg/dL for patients with CHD or diabetic patients with >= 2 CHD risk factors. LDL-C is now calculated using the Reid-Raphael calculation, which is a validated novel method providing better accuracy than the Friedewald equation in the estimation of LDL-C. Reid SS et al. MARIA DOLORES. 2013;310(19): 7061-5681 (http://education.[employer].com/faq/FTU295) LDL-C is now calculated using the Reid-Raphael calculation, which is a validated novel method providing better accuracy than the Friedewald equation in the estimation of LDL-C. Reid SS et al. MARIA DOLORES. 2013;310(19): 6545-8911 (http://education.[employer].com/faq/WVL652) CHOL/HDLC RATIO 2.7 <5.0 calc NON HDL CHOLESTEROL 85 <130 mg/dL (calc) For patients with diabetes plus 1 major ASCVD risk factor, treating to a non-HDL-C goal of <100 mg/dL (LDL-C of <70 mg/dL) is considered a therapeutic option. For patients with diabetes plus 1 major ASCVD risk factor, treating to a non-HDL-C goal of <100 mg/dL (LDL-C of <70 mg/dL) is considered a therapeutic option. CARDIO IQ(R) INSULIN (34086) Reviewed date:12/11/2023 08:57:10 AM Interpretation: Performing Lab:Z4M, [facility] [place] [address], [address] Tom Serrano PhD,[facility] Notes/Report: NON-FASTING; NON-FASTING; NON-FASTING; NON-FASTING FASTING:YES FASTING: YES INSULIN 4.1 <18.5 uIU/mL COMPREHENSIVE METABOLIC PANE (81488) Reviewed date:12/07/2023 08:37:23 AM Interpretation: Performing Lab:NL2, [facility] Tw[address] [place], [place] [id number] Lewis Vela Notes/Report: NON-FASTING; NON-FASTING; NON-FASTING; NON-FASTING FASTING:YES FASTING: YES GLUCOSE 95 65-99 mg/dL Fasting reference interval UREA NITROGEN (BUN) 20 7-25 mg/dL CREATININE 1.00 0.70-1.28 mg/dL EGFR 77 > OR = 60 mL/min/1.73m2 BUN/CREATININE RATIO SEE NOTE: 6-22 (calc) Not Reported: BUN and Creatinine are within reference range. SODIUM 140 135-146 mmol/L POTASSIUM 4.3 3.5-5.3 mmol/L CHLORIDE 108 98-110 mmol/L CARBON DIOXIDE 22 20-32 mmol/L CALCIUM 8.5 8.6-10.3 mg/dL PROTEIN, TOTAL 6.4 6.1-8.1 g/dL ALBUMIN 4.0 3.6-5.1 g/dL GLOBULIN 2.4 1.9-3.7 g/dL (calc) ALBUMIN/GLOBULIN RATIO 1.7 1.0-2.5 (calc) BILIRUBIN, TOTAL 0.8 0.2-1.2 mg/dL ALKALINE PHOSPHATASE 74 35-144 U/L AST 13 10-35 U/L ALT 5 9-46 U/L CARDIO IQ(R) HS CRP (27547) Reviewed date:12/11/2023 09:00:50 AM Interpretation: Performing Lab:Linda, [facility], [address], [id number] Tom Serrano PhD,[facility] Notes/Report: NON-FASTING; NON-FASTING; NON-FASTING; NON-FASTING FASTING:YES FASTING: YES HS CRP 3.5 <1.0 mg/L Reference Range: Optimal <1.0 mg/L, according to Chetan SMITH et al. Endocr Pract.2017;23(Suppl 2):1-87. The AHA/CDC Guidelines recommend hs-CRP ranges for identifying Relative Cardiovascular Risk in patients ages >17 years: <1.0 mg/L Lower Relative Cardiovascular Risk; 1.0-3.0 mg/L Average Relative Cardiovascular Risk; 3.1-10.0 mg/L Higher Relative Cardiovascular Risk. If result is between 3.1 and 10.0 mg/L, consider retesting in 1-2 weeks to exclude a benign transient elevation secondary to infection or inflammation from the baseline CRP value. Persistent elevations of >10.0 mg/L upon retesting may be associated with infection and inflammation. The AHA/CDC recommendations are based on Radha TA, Stephanie GA, Devon RW, et al. Markers of inflammation and cardiovascular disease: application to clinical and public health practice: A statement for healthcare professionals from the Centers for Disease Control and Prevention and the [place] Heart Association. Circulation 2003; 107(3): 499-511. For ages >17 Years: hs-CRP mg/L Risk According to AHA/CDC Guidelines <1.0 Lower relative cardiovascular risk. 1.0-3.0 Average relative cardiovascular risk. 3.1-10.0 Higher relative cardiovascular risk. Consider retesting in 1 to 2 weeks to exclude a benign transient elevation in the baseline CRP value secondary to infection or inflammation. >10.0 Persistent elevation, upon retesting, may be associated with infection and inflammation. Garcia TA, Stephanei GA, Devon RW, et al. Markers of inflammation and cardiovascular disease: application to clinical and public health practice: A statement for healthcare professionals from the Centers for Disease Control and Prevention and the [place] Heart Association. Circulation 2003; 107(3): 499-511. CARDIO IQ(R) HOMOCYSTEINE (9 1733) Reviewed date:12/11/2023 09:01:01 AM Interpretation: Performing Lab:Adelina, [facility] [address], [address], [id number] Tom Serrano PhD,[facility] Notes/Report: NON-FASTING; NON-FASTING; NON-FASTING; NON-FASTING FASTING:YES FASTING: YES HOMOCYSTEINE 14.9 <11.4 umol/L Homocysteine is increased by functional deficiency of folate or vitamin B12. Testing for methylmalonic acid differentiates between these deficiencies. Other causes of increased homocysteine include renal failure, folate antagonists such as methotrexate and phenytoin, and exposure to nitrous oxide. Selhub J, et al. Kasey Completion Supervisor Med. 1999;131(5):331-9. Homocysteine is increased by functional deficiency of folate or vitamin B12. Testing for methylmalonic acid differentiates between these deficiencies. Other causes of increased homocysteine include renal failure, folate antagonists such as methotrexate and phenytoin, and exposure to nitrous oxide. Selhub J, et al., Kasey Completion Supervisor Med. 1999;131(5):331-9. CARDIO IQ(R) HEMOGLOBIN A1c (19905) Reviewed date:12/11/2023 09:05:13 AM Interpretation: Performing Lab:Adelina, [facility], [address], [id number] Tom Serrano PhD,[facility] Notes/Report: NON-FASTING; NON-FASTING; NON-FASTING; NON-FASTING FASTING:YES FASTING: YES HEMOGLOBIN A1c 6.6 <5.7 % For someone without known diabetes, a hemoglobin A1c value of 6.5% or greater indicates that they may have diabetes, and this should be confirmed with a follow-up test. For someone with known diabetes, a value <7% indicates that their diabetes is well controlled and a value greater than or equal to 7% indicates suboptimal control. A1c targets should be individualized based on duration of diabetes, age, comorbid conditions, and other considerations. Currently, no consensus exists for use of hemoglobin A1c for diagnosis of diabetes for children. This test was performed on the [employer] chong c503 platform. Effective 07/03/2023, a change in test platforms from the [employer] to the [employer] chong c503 may have shifted HbA1c results compared to historical results. Based on laboratory validation testing conducted at [facility], the [employer]enta platform relative to the [employer] platform had an average increase in HbA1c value of <=0.3%. This difference is within accepted variability established by the National Glycohemoglobin Standardization Program. Note that not all individuals will have had a shift in their results and direct comparisons between historical and current results for testing conducted on different platforms is not recommended. REASON FOR REFERRAL No Information MEDICATIONS Medication SIG (Take, Route, Frequency, Duration) Notes Start Date End Date Status Aricept 5 MG 1 tablet at bedtime Orally Once a day Not-Taking Metoprolol Succinate ER 100 MG Oral metoprolol succinate ER 100 mg tablet,extended release 24 hr 12/29/2021 Not-Taking Doxepin HCl 3 MG 1 tablet at bedtime Orally Once a day for 30 days 04/10/2024 Active Prevagen 10 MG as directed Orally Active Valsartan 160 MG 1 tablet Orally Once a day 03/19/2024 Active metFORMIN HCl 500 MG TAKE 1 TABLET BY MOUTH TWICE A DAY WITH A MEAL FOR 30 DAYS Active Rosuvastatin Calcium 5 MG TAKE 1 TABLET BY MOUTH EVERY DAY Active amLODIPine Besylate 5 MG TAKE 1 TABLET BY MOUTH EVERY DAY Active Aspirin Adult Low Strength 81 MG Oral aspirin 81 mg tablet,delayed release 12/29/2021 Active SOCIAL HISTORY Tobacco Use: Social History Observation Description Date Details (start date - stop date) Never Smoker NA - NA Sex Assigned At : Social History Observation Description Sex Assigned At Unknown Household Question Answer Notes Marital status: Number of adults in household: 2 Tobacco Use/Smoking Question Answer Notes Tobacco use: nonsmoker Section Notes: [place] with PROBLEMS Problem Type ICD Code Onset Dates Problem Status W/U Status Risk SNOMED Code Notes Problem Mixed hyperlipidemia (E78.2) Active confirmed 270133288 Problem Primary insomnia (F51.01) Active confirmed 9349930 Problem Seasonal allergies (J30.2) Active confirmed Seasonal allergy (495822017) Problem Primary hypertension (I10) Active confirmed 04642800 Problem Pre-diabetes (R73.03) Active confirmed 904764441 Problem Arthritis (M19.90) Active confirmed 372 3001 Problem Cognitive dysfunction (F09) Active confirmed Cognitive dysfunction (995595803) VITAL SIGNS Heart Rate 75 /min 04/10/2024 Blood pressure diastolic 82 mm Hg 04/10/2024 Oximetry 98 % 04/10/2024 Height-cm 165.10 cm 04/10/2024 Weight-kg 83.19 kg 04/10/2024 Height 65 in 04/10/2024 Blood pressure systolic 136 mm Hg 04/10/2024 Weight 183.4 lbs 04/10/2024 BMI 30.52 kg/m2 04/10/2024 Encounters Encounter Location Date Provider Diagnosis [address] [id number] 09/14/[address] [id number] 07/09/2024 Nichelle Salgado [address] [id number] 09/28/2023 Nichelle Salgado Pre-diabetes R73.03 ; Primary insomnia F51.01 ; Mixed hyperlipidemia E78.2 ; Primary hypertension I10 ; Arthritis M19.90 ; Actinic keratosis L57.0 and Encounter to discuss test results Z71.[address] [id number] 10/10/2023 Nichelle Salgado Pre-diabetes R73.03 ; Primary insomnia F51.01 and Actinic keratosis L57.[address] [id number] 12/11/2023 Nichelle Damian Mixed hyperlipidemia E78.2 ; Pre-diabetes R73.03 ; Primary hypertension I10 and Toenail fungus B35.[address] [id number] 02/12/2024 Nichellelindsay Salgado Primary insomnia F51 .01 ; Annual physical exam Z00.00 ; Mixed hyperlipidemia E78.2 ; Pre-diabetes R73.03 ; Primary hypertension I10 ; Encounter for screening examination for mental health and behavioral disorders, unspecified Z13.30 ; Encounter for screening for other disorder Z13.89 ; Actinic keratoses L57.0 ; Cognitive dysfunction F09 and Seasonal allergies J30.[address] [id number] 03/19/2024 Nichellelindsay Salgado Mixed hyperlipidemia E78.2 ; Pre-diabetes R73.03 ; Primary hypertension I10 and Primary insomnia F51.[address] [id number] 04/10/2024 Nichelle Salgado Seasonal allergies J30.2 ; Primary hypertension I10 and Primary insomnia F51.[address] [id number] 09/17/2023 Nichelle Damian ASSESSMENTS Encounter Date Diagnosis Assessment Notes Treatment Notes Treatment Clinical Notes Section Notes 09/28/2023 Primary insomnia (ICD-10 - F51.01) Stable/managed on current med regimen Discussed importance of sleep hygiene To engage in both pharmacologic and nonpharmacologic means 09/28/2023 Pre-diabetes (ICD-10 - R73.03) Lifestyle modification All [...] risk of progression to type 2 diabetes. 10/10/2023 Primary insomnia (ICD-10 - F51.01) Sleeping well [...] waking up often to use the bathroom. 10/10/2023 Pre-diabetes (ICD-10 - R73.03) Lifestyle modification All [...] risk of progression to type 2 diabetes. Repeat labs in 12/11/2023 Mixed hyperlipidemia (ICD-10 - E78.2) Continue current statin Low fat, low cholesterol diet Exercise Check lipids, LFTs 02/12/2024 Primary insomnia (ICD-10 - F51.01) Sleeping well [...] or more hours of sleep per day. Why is getting enough sleep important? Getting [...] waking up often to use the bathroom. Patient states he is taking trazodone as previously prescribed, patient report taking 25mg with good relief. Plan to continue taking as ordered 02/12/2024 Annual physical exam (ICD-10 - Z00.00) We discussed short and terminal carman health goals. Exam today was without concerns, states feels safe at home. Reports having working CO2 and Smoke detectors. Encouraged to wear sunscreen. Reports wearing seatbelt when driving or as a passenger. Encourage regular exercise of moderate intensity 30 min 5x/week. EKG: Sinus bradycardia Vent rate: 56BPM OK int: 205 ms QT/QTc 435/426 ms 03/19/2024 Mixed hyperlipidemia (ICD-10 - E78.2) Continue [...] risk of progression to type 2 diabetes. 04/10/2024 Seasonal allergies (ICD-10 - J30.2) Has significant post nasal drip Recommend Claritin, flonase and cool mist humidifier 04/10/2024 Primary hypertension (ICD-10 - I10) Continue medication as directed- well controlled on current dosage Low-salt diet Weight management Regular exercise Yearly microalbumin 04/10/2024 Primary insomnia (ICD-10 - F51.01) Does not like the way Trazodone made him feel in the morning Has tried OTC medication with no improvement He is able to fall asleep but wakes up and is unable to go back to sleep Discussed possible side effects/adverse reaction and when to call the office and stop the medication Sleeping well means getting enough sleep to [...] up often to use the bathroom. 03/19/2024 Primary hypertension (ICD-10 - I10) Continue medication as directed Low-salt diet Weight management Regular exercise Yearly microalbumin 02/12/2024 Mixed hyperlipidemia (ICD-10 - E78.2) Continue current statin Low fat, low cholesterol diet Exercise Check lipids, LFTs 12/11/2023 Pre-diabetes (ICD-10 - R73.03) Lifestyle modification All [...] risk of progression to type 2 diabetes. 10/10/2023 Actinic keratosis (ICD-10 - L57.0) Cryo: actinic keratosis, benign CRYO THERAPY: area(s) to be treated cleansed, liquid nitrogen was applied using a sponge tipped applicator directly to the lesions (2). A series of three applications was used on each lesion using freeze/thaw technique. Pt tolerated the procedure well. Post procedural instructions were given to pt verbally. Follow up as clinically indicated. Pt is able to verbally demonstrate return instructions with an excellent understanding of what to expect and when to seek to follow up. 09/28/2023 Mixed hyperlipidemia (ICD-10 - E78.2) Continue current statin Low fat, low cholesterol diet Exercise Check lipids, LFTs 09/28/2023 Primary hypertension (ICD-10 - I10) Continue medication as directed Low-salt diet Weight management Regular exercise Yearly microalbumin 12/11/2023 Primary hypertension (ICD-10 - I10) Continue medication as directed Low-salt diet Weight management Regular exercise Yearly microalbumin 12/11/2023 Toenail fungus (ICD-10 - B35.1) Have tried OTC remedies with no improvement 02/12/2024 Pre-diabetes (ICD-10 - R73.03) Lifestyle modification All patients with IGT, IFG, or an A1C of 5.7 to 6.4 percent (39 to 46 mmol/mol) (table 3) should be provided with a comprehensive lifestyle modification program that includes: Behavior modification Dietary therapy Physical activity The goal of the lifestyle intervention is [...] in diet and may improve long-term adherence 03/19/2024 Primary insomnia (ICD-10 - F51.01) Sleeping [...] waking up often to use the bathroom. 09/28/2023 Arthritis (ICD-10 - M19.90) Arthritis treatment focuses on relieving symptoms and improving joint function. Medications use to treat arthritis depending on the type of arthritis. Commonly used arthritis medication include: NSAIDs (can reduce inflammation and relieve pain) stronger NSAIDS can cause stomach irritation and may increase risk of heart attack or stroke. NSAIDs are also available as creams or gels, which can be rubbed on joints; Counterirritants- some varieties of creams and ointments contain menthol or capsaicin, the ingredient that makes hot peppers spicy. Rubbing these preparations on the skin over aching joints may interfere with the transmission of pain signals from the joint itself; Steroids- can reduce inflammation and pain and slow joint damage. Can be given in pill or as an injection into the painful joint. Side effects may include thinning of bones, weight gain, and diabetes; Disease-modifying antirheumatic drugs- these drugs can slow the progression of rheumatoid arthritis and save the joint and other tissues from permanent damage- side effects can increase your risk of infections. Physical therapy cane he helpful for some types of arthritis. Exercise (such as swimming) can help keep joints flexible. Swimming and water aerobics may be good choices because the water reduces stress on weight-bearing joints. Weight loss may increase your mobility and limit future joint injury. Heat and cold may help relieve arthritis pain. Assistive devices ; using canes, shoe inserts, walkers, raised toilet seats, and other assistive devices can help protect joints and improve ability to perform daily tasks. 02/12/2024 Primary hypertension (ICD-10 - I10) Continue medication as directed Low-salt diet Weight management Regular exercise Yearly microalbumin 09/28/2023 Actinic keratosis (ICD-10 - L57.0) CRYO THERAPY: area(s) to be treated cleansed, liquid nitrogen was applied using a sponge tipped applicator directly to the lesions (2). A series of three applications was used on each lesion using freeze/thaw technique. Pt tolerated the procedure well. Post procedural instructions were given to pt verbally. Follow up as clinically indicated. Pt is able to verbally demonstrate return instructions with an excellent understanding of what to expect and when to seek to follow up. 02/12/2024 Encounter for screening examination for mental health and behavioral disorders, unspecified (ICD-10 - Z13.30) CAGE Questions Adapted to Include Drug Use (CAGE-AID) 1. Have you ever felt you ought to cut down on your drinking or drug use? N 2. Have people annoyed you by criticizing your drinking or drug use? N 3. Have you felt bad or guilty about your drinking or drug use? N 4. Have you ever had a drink or used drugs first thing in the morning to steady your nerves or to get rid of a hangover (eye-mammal control agent)? N Total Score: 0 Scoring: Item responses on the CAGE questions are scored 0 for no and 1 for yes answers, with a higher score being an indication of alcohol problems. A total score of two or greater is considered clinically significant. 02/12/2024 Encounter for screening for other disorder (ICD-10 - Z13.89) PHQ9 Score: 2 low risk for major depressive disorder 09/28/2023 Encounter to discuss test results (ICD-10 - Z71.2) All labs were reviewed and the results were explained to the patient in detail. Total time with patient >30 minutes which includes education and coordination of care. 02/12/2024 Actinic keratoses (ICD-10 - L57.0) Cryo: actinic keratosis, benign CRYO THERAPY: area(s) to be treated cleansed, liquid nitrogen was applied using a sponge tipped applicator directly to the lesions (one). A series of three applications was used on each lesion using freeze/thaw technique. Pt tolerated the procedure well. Post procedural instructions were given to pt verbally. Follow up as clinically indicated. Pt is able to verbally demonstrate return instructions with an excellent understanding of what to expect and when to seek to follow up. 02/12/2024 Cognitive dysfunction (ICD-10 - F09) MMSE: 17 Patient unwilling to write a sentence and count and spell backwards due to learning disability making the difference between mild and severe cognitive impairment. 02/12/2024 Seasonal allergies (ICD-10 - J30.2) Continue with current regimen Uses flonase at night as well 02/12/2024 Other Toenail fungus- states that he is using liquid pepper that he bought on [employer] and states that it is working 03/19/2024 Other Total time spen t with patient 32 minutes which includes face to face visit, education and coordination of care. 04/10/2024 Other Will be in [facility] for 2 months. He is driving down with his PLAN OF TREATMENT Future Test Test Name Order Date COMPREHENSIVE METABOLIC PANEL (81413) CBC (INCLUDES DIFF/PLT) (6399) CARDIO IQ(R) HS CRP (35989) 03/19/2024 CARDIO IQ(R) HEMOGLOBIN A1c (11269) 03/01 CARDIO IQ(R) HOMOCYSTEINE (50153) 2023 CARDIO IQ(R) VITAMIN D, 25 HYDROXY (9173 5) 03/19/2024 Insurance Providers Payer Name Payer Address Payer Phone Subscriber Number Group Number Insured Name Patient Relationship to Insured Coverage Start Date Coverage End Date Medicare [address] [place] [address] [phone] [id number] LIBIA GILMORE Self - patient is the insured [facility] [employer] [address] [place] [phone] [id number] LIBIA GILMORE Self - patient is the insured MEDICAL (GENERAL) HISTORY Medical History History ICD Code Hyperkeratosis Hyperlipidemia Impaired fasting glucose Primary hypertension Hernia Arthritis Quadruple Bypass Dentures (upper/lower) Surgical History Surgery Date(Month/Year) Rt. lung, Lobectomy (lung infection) 197 0 Angioplasty 1987, 1997 x2 Cardiac Cath (Quadruple Bypass) 2009 Cataract Surgery
--- OUTSIDE RECORDS SUMMARY | 2024-08-11 08:33 | XMS_ITS ---
Author Organization [facility], [facility] Address [address], [place] [id number] Care Team Providers Care Bounty Trapper Name Role Phone CHIO MENDENHALL Primary Care Provider Nichelle Salgado [phone] REASON FOR VISIT f/u labs Encounters Encounter Location Date Provider Diagnosis [facility], [facility] [address], [place] [id number] 07/09/2024 Nichelle Salgado PLAN OF TREATMENT No Information Progress Notes * LIBIA GILMOREDOB: 5 (79 yo M)Acc No.[id number]:07/09/2024 Progress Notes Patient:??LIBIA GILMORE Provider:??Nichelle Salgado DNP :1945?Age:79 Y?Sex:Ma le Date:07/09/2024 Phone: Address: [address] [place], [place] Pcp:CHIO MENDENHALL Subjective: * Chief Complaints: * ?1. F/u labs. * Medical History:?? Objective: Assessment: Plan: * Treatment: * Billing Information: * Visit Code:?? * Procedure Codes:?? * Sign off status: Pending * Provider:??Nichelle Salgado DNP Date:??03/2025
--- OUTSIDE RECORDS SUMMARY | 2024-08-11 08:34 | XMS_ITS | Patient Health Record ---
Author Organization [facility] Address [address] [facility] [address] [place] [address] Care Team Providers Care Cath Laboratory Technician Name Role Phone Matilde Mata Primary Care Provider Unava ilable Allergies No Known Allergies Reason For Referral No Information Medications Medication SIG (Take, Route, Frequency, Duration) Notes Start Date End Date Status Ciclopirox 0.77 % 1 application to eac h affected toenail Externally Once a day for 90 days 10/14/2020 Active Diclofenac Sodium 1 % 1 gm to the outsid e of each foot as directed Externally Twice a day for 30 day(s) Active Meclizine HCl 25 MG 1 tablet as needed O rally 0.5-1 tab every 8 hours prn Active Rosuvastatin Calcium 5 MG 1 tablet Orally Once a day Active Aspirin 81 MG 1 tablet Orally Once a day Active Valsartan 160 MG 1 tablet Orally Once a day Active Norvasc 2.5 MG 1 tablet Orally Once a day Active Plan Of Treatment Pending Test Test Name Order Date X ray : Foot, left 3v 10/14/2020 X ray : Foot, right 3v 10/14/2020 DRAIN/INJECT, SMALL JOINT/BURSA 10/15/19 21 Insurance Providers Payer Name Payer Address Payer Phone Subscriber Number Group Number Insured Name Patient Relationship to Insured Coverage Start Date Coverage End Date [employer] of [place] [address] [place] [phone] [id number] Yemi Cantu Self - patient is the insured [facility] [address] [place] [phone] [id number] Yemi Cantu Self - patient is the insured Medications Administered Medication Instructions Date of Administration Dosage Notes Dexamethasone 10/14/2020 0.5 mL Kenalog 10/14/2020 0.5 mL Medical (General) History Medical History History ICD Code Prostate cancer C61 PVD (peripheral vascular disease ) with claudication ( I73.9) Sebaceous cyst L72.3 Chronic obstructive pulmonary disease, u nspecified J44.9 Hyperlipidemia, unspecified E78.5 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
--- OUTSIDE RECORDS SUMMARY | 2024-08-11 08:34 | XMS_ITS ---
Author Organization [employer] [place] Address [address] [place] [id number] Care Team Providers Care Guide Domestic Tour Name Role Phone CHIO MENDENHALL Primary Care Provider Nichelle Salgado Unavailable [phone] ALLERGIES No Known Allergies REASON FOR VISIT BP MEDICATIONS Medication SIG (Take, Route, Frequency, Duration) Notes Start Date End Date Status Aricept 5 MG 1 tablet at bedtime Orally Once a day Not-Taking Metoprolol Succinate ER 100 MG Oral metoprolol succinate ER 100 mg tablet,extended release 24 hr 12/29/2021 Not-Taking Doxepin HCl 3 MG 1 tablet at bedtime Orally Once a day for 30 days 04/10/2024 Active Loratadine 10 MG 1 tablet Orally Once a day for 90 days 04/10/2024 05/10/2024 Active Prevagen 10 MG as directed Orally [...] 1 TABLET BY MOUTH EVERY DAY Active SOCIAL HISTORY Tobacco Use: Social History Observation Description Date Details (start date - stop date) Never Smoker NA - NA Sex Assigned At : Social History Observation Description Sex Assigned At Unknown Household Question Answer Notes Marital status: Number of adults in household: 2 Tobacco Use/Smoking Question Answer Notes Tobacco use: nonsmoker Section Notes: Lives in [place], [place] with VITAL SIGNS Blood pressure systolic 136 mm Hg 04/10/20 24 Blood pressure diastolic 82 mm Hg 024 Heart Rate 75 /min 04/10/2024 Height 65 in 04/10/2024 Weight 183.4 lbs 04/10/2024 BMI 30.52 kg/m2 04/10/2024 Oximetry 98 % 04/10/2024 Height-cm 165.10 cm 04/10/2024 Weight-kg 83.19 kg 04/10/2024 Encounters Encounter Location Date Provider Diagnosis [address] [phone] 04/10/2024 Nichelle Salgado Seasonal allergies J30.2 ; Primary hypertension I10 and Primary insomnia F51.01 ASSESSMENTS Encounter Date Diagnosis Assessment Notes Treatment Notes Treatment Clinical Notes Section Notes 04/10/2024 Seasonal allergies (ICD-10 - J30.2) Has [...] waking up often to use the bathroom. 04/10/2024 Other Will be in [place] for 2 months. He is driving down with his PLAN OF TREATMENT Medication Medication Name Sig Start Date Stop Date Notes Doxepin HCl 3 MG 1 tablet at bedtime Orally Once a day for 30 days 04/10/2024 Loratadine 10 MG 1 tablet Orally Once a day for 90 days 04/10/2024 05/10/2024 Levocetirizine Dihydrochloride 5 MG Oral 01/16/2022 levocetiriz ine 5 mg tablet Valsartan 160 MG 1 tablet Orally Once a day 03/19/2024 traZODone HCl 50 MG 1/2 tablet at bedtime as needed Orally Once a day 02/12/2024 amLODIPine Besylate 5 MG TAKE 1 TABLET B Y MOUTH EVERY DAY Treatment Notes Assessment Notes Seasonal allergies Has significant post nasal drip Recommend Claritin, flonase and cool mist humidifier Primary hypertension Continue medication as directed- well controlled on current dosage Low-salt diet Weight management Regular exercise Yearly microalbumin Primary insomnia Does not like the way Trazodone made [...] up often to use the bathroom. Other Will be in [place] f or 2 months. He is driving down with his Next Appt Details Follow Up: 2 Months, Reason: Has FU In June to Fu labs Progress Notes * MANDO YEMIDOB: 5 (79 yo M)Acc No.[id number]:04/10/2024 Progress Notes Patient:??YEMI GILMORE Provider:??Nichelle Salgado DNP :1945?Age:79 Y?Sex:Ma le Date:04/10/2024 Phone: Address:[address] [place] [address], [id number] Pcp:CHIO MENDENHALL Subjective: * Chief Complaints: * ?BP * HPI: ?Patient Care Team:?Tire Center Manager:??Dr. Glass.? Providers/Specialists: Vascular: Dr. Funes. ?Visit info:? Yemi presents in the office today to check his BP. Yemi also states that he is still having trouble sleeping. ?He is back to exercising with walking and using a rower. * ROS:?Reviewed. * Medical History:?? * Surgical History:??Rt. lung, Lobectomy (lung infection) 1970Angioplasty 1987, 1997 [id number] Cath (Quadruple Bypass) 2010Cataract Surgery * Hospitalization/Major Diagno stic Procedure:?? * Family History:??Father: dec eased 72 yrs, Bladder CA.??Mother: 82 yrs, Alzheimer's.??Sister: alive, Alzheimer's.??2 son(s) , 1 daughter(s) - healthy. .?? * Social History:?Tobacco Use:??Tobacco Use/Smoking??Tobacco use:??nonsmoker.?Drugs/Alcohol:??Do you smoke marijuana?: Denies. Do you drink alcohol?: Yes, Socially. ?Household:??Household??Marital status:??,??Number of adults in household:??2.?Miscellaneous:??Exercise: daily, for 30-60 minutes a day. Occupation: retired. ?Lives in [place], [place] with . * Medications:??TakingPrevagen 10 MG Capsule as directed Orally Levocetirizine Dihydrochloride 5 MG Tablet Oral , Notes to Pharmacist: levocetirizine 5 mg tabletamLODIPine Besylate 5 MG Tablet TAKE 1 TABLET BY MOUTH EVERY DAY Aspirin Adult Low Strength 81 MG Tablet Delayed Release Oral , Notes to Pharmacist: aspirin 81 mg tablet,delayed releasemetFORMIN HCl 500 MG Tablet TAKE 1 TABLET BY MOUTH TWICE A DAY WITH A MEAL FOR 30 DAYS Rosuvastatin Calcium 5 MG Tablet TAKE 1 TABLET BY MOUTH EVERY DAY Valsartan 160 MG Tablet 1 tablet Orally Once a day Taking Prevagen 10 MG Capsule as directed Orally Taking Levocetirizine Dihydrochloride 5 MG Tablet Oral , Notes to Pharmacist: levocetirizine 5 mg tabletTaking amLODIPine Besylate 5 MG Tablet TAKE 1 TABLET BY MOUTH EVERY DAY Taking Aspirin Adult Low Strength 81 MG Tablet Delayed Release Oral , Notes to Pharmacist: aspirin 81 mg tablet,delayed releaseTaking metFORMIN HCl 500 MG Tablet TAKE 1 TABLET BY MOUTH TWICE A DAY WITH A MEAL FOR 30 DAYS Taking Rosuvastatin Calcium 5 MG Tablet TAKE 1 TABLET BY MOUTH EVERY DAY Taking Valsartan 160 MG Tablet 1 tablet Orally Once a day Not-TakingtraZODone HCl 50 MG Tablet 1/2 tablet at bedtime as needed Orally Once a day Aricept 5 MG Tablet 1 tablet at bedtime Orally Once a day Metoprolol Succinate ER 100 MG Tablet Extended Release 24 Hour Oral , Notes to Pharmacist: metoprolol succinate ER 100 mg tablet,extended release 24 hrMedication List reviewed and reconciled with the patientNot-Taking traZODone HCl 50 MG Tablet 1/2 tablet at bedtime as needed Orally Once a day Not-Taking Aricept 5 MG Tablet 1 tablet at bedtime Orally Once a day Not-Taking Metoprolol Succinate ER 100 MG Tablet Extended Release 24 Hour Oral , Notes to Pharmacist: metoprolol succinate ER 100 mg tablet,extended release 24 hrMedication List reviewed and reconciled with the patient * Allergies:??N.K.D.A.no[Aller gies Verified] Objective: * Vitals:??BP: 136/82 mm Hg, H R: 75 /min, Oxygen sat %: 98 %, Wt: 183.4 lbs, Wt- k.19 kg, Ht: 65 in, Ht-cm: 165.10 cm, BMI: 30.52 Index, Body Surface Area: 1.95. * Examination: ?General Examination: ?General appearance: no [...] normal affect / mood. Assessment: * Assessment: 1.??Primary hypertension - I 10 (Primary)??2.??Seasonal allergies - J30.2??3.??Primary insomnia - F51.01?? Plan: * Treatment: 2.??Seasonal allergies?? Start Loratadine Tablet, 10 MG, 1 tablet, Orally, Once a day, 90 days, 90 Tablet, Refills 1;??Stop Levocetirizine Dihydrochloride Tablet, 5 MG, Oral, Notes to Pharmacist: levocetirizine 5 mg tablet.? Notes: Has significant post nasal drip Recommend Claritin, flonase and cool mist humidifier? 3.??Primary insomnia?? Start Doxepin HCl Tablet, 3 MG, 1 tablet at bedtime, Orally, Once a day As needed, 30 days, 30, Refills 1;??Stop traZODone HCl Tablet, 50 MG, 1/2 tablet at bedtime as needed, Orally, Once a day.? Notes: Does not like the way Trazodone made [...] waking up often to use the bathroom.? 4.??Others?? Notes: Will be in [place] for 2 months. He is driving down with his ? * Procedure Codes:?? * Preventive Medicine:?Last CPE: 12/29/2021 @ [facility]; 01/18/23 DEXA: No Colonoscopy: Yes, approx. 2011 Endoscopy: No Covid Vac: Yes Flu Vac: Yes Shingles Vac: No PV: No. * Follow Up:??2 Months (Reason : Has FU In June to Fu labs) * Billing Information: * Visit Code:?? [id number] Office Visit, Est Pt., Level 4. * Procedure Codes:?? * Sign off status: Completed true * Provider:??Nichelle Salgado DNP Date:??03/2024 History and Physical Notes * HPI (History of Present Illness) Category Sub-Category Detail Notes Category Not es Patient Care Team Tire Center Manager: Dr. Glass Providers /Specialists: Vascular: Dr. Funes Visit info Yemi presents in the office today to check his BP. Yemi also states that he is still having trouble sleeping. He is back to exercising with walking and using a rower Examination Category Sub-Category Detail Notes Category Not [...]
== END 2024-08-11 08:30 | disposition home or self-care (01) ==
PROVIDERS: PCP Physician Assistant Medical; Visit Provider Nurse Practitioner Family
DX: F51.05 Insomnia due to other mental disorder (principal); V89.2XXA Person injured in unspecified motor-vehicle accident, traffic, initial encounter; F40.9 Phobic anxiety disorder, unspecified; Z04.3 Encounter for examination and observation following other accident

== ENCOUNTER → 2024-08-11 08:12 | Outpatient (BNVA) | payer MEDICARE, SELFPAY | PROVIDERS: PCP Physician Assistant Medical | DX: F51.05 Insomnia due to other mental disorder (principal); F40.9 Phobic anxiety disorder, unspecified; V89.2XXD Person injured in unspecified motor-vehicle accident, traffic, subsequent encounter | CPT/HCPCS: 99212 ==

== ENCOUNTER 2024-08-13 11:43 | Outpatient (AMB) | payer MEDICARE, SELFPAY ==
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
[2024-08-13 13:30] VITALS: BP 142/80; PULSE 68; RESP 13; TEMP 36.4; O2SAT 98; BMI 24.3
--- OUTSIDE RECORDS SUMMARY | 2024-08-13 14:12 | XMS_ITS ---
Author Organization [facility] Address [address], [place] [id number] Care Team Providers Care Social And Political Studies Professor Name Role Phone CHIO MENDENHALL Primary Care Provider [phone] Nichelle Salgado [phone] REASON FOR VISIT f/u labs Encounters Encounter Location Date Provider Diagnosis [facility] [address], [place] [id number] 07/09/2024 Nichelle Salgado PLAN OF TREATMENT No Information Progress Notes * LIBIA GILMOREDOB: [birth year] (79 yo M)Acc No.[id number]:07/09/2024 Progress Notes Patient:??LIBIA GILMORE Provider:??Nichelle Salgado DNP :1945?Age:79 Y?Sex:Ma le Date:07/09/2024 Phone: Address: [address] [place], [id number] Pcp:CHIO MENDENHALL Subjective: * Chief Complaints: * ?1. F/u labs. * Medical History:?? Objective: Assessment: Plan: * Treatment: * Billing Information: * Visit Code:?? * Procedure Codes:?? * Sign off status: Pending * Provider:??Nichelle Salgado DNP Date:??03/2025
--- OUTSIDE RECORDS SUMMARY | 2024-08-13 14:12 | XMS_ITS | Patient Health Record ---
Author Organization [place] [employer] Document Preparation Address [address] [place] [address] [phone] Care Team Providers Care Cosmetic Counselor Name Role Phone CHIO MENDENHALL Primary Care Provider Nichelle Salgado Unavailable [phone] ALLERGIES No Known Allergies RESULTS Component Value Reference Range Notes CARDIO IQ(R) VITAMIN D, 25 H YDROXY (22356) Reviewed date:03/13/2024 08:10:46 AM Interpretation: Performing Lab:GEOFFREY [facility] [id number] Pallavi Deleon, [id number] Dilshad King M.D.,PhD Notes/Report: FASTING FASTING:YES FASTING: [...] ng/mL. For additional information, please refer to http://education.[employer].Active Scaler/faq/ITY751 (This link is being provided for informational/ educational purposes only.) VITAMIN D, 25-OH, D3 31 This test was developed and its analytical performance characteristics have been determined by [facility] [place] [place]. It has not been cleared or approved by the U.S. Food and Drug Administration. This assay has been validated pursuant to the CLIA regulations and is used for clinical purposes. VITAMIN D, 25-OH, D2 <4 This test was developed and its analytical performance characteristics have been determined by [facility] [place] [place]. It has not been cleared or approved by the U.S. Food and Drug Administration. This assay has been validated pursuant to the CLIA regulations and is used for clinical purposes. CARDIO IQ(R) HOMOCYSTEINE (9 1733) Reviewed date:03/13/2024 08:15:38 AM Interpretation: Performing Lab:Linda, Voovio aka [employer] ([facility]).[address] [place] [address], [address], [id number] Tom Serrano PhD,[employer] Notes/Report: FASTING FASTING:YES FASTING: YES HOMOCYSTEINE 19.0 <11.4 umol/L Homocysteine is increased by functional deficiency of folate or vitamin B12. Testing for methylmalonic acid differentiates between these deficiencies. Other causes of increased homocysteine include renal failure, folate antagonists such as methotrexate and phenytoin, and exposure to nitrous oxide. Selhub J, et al. [employer] [facility] Assistant Med. 1999;131(5):331-9. Homocysteine is increased by functional deficiency of folate or vitamin B12. Testing for methylmalonic acid differentiates between these deficiencies. Other causes of increased homocysteine include renal failure, folate antagonists such as methotrexate and phenytoin, and exposure to nitrous oxide. Selhub J, et al., [facility] [facility] Assistant Med. 1999;131(5):331-9. CARDIO IQ(R) APOLIPOPROTEIN B (53809) Reviewed date:03/13/2024 08:10:31 AM Interpretation: Performing Lab:Diane [facility] ([facility]).-[address], [address], RjlkvsqelFZ[address] Tom Serrano PhD,[employer] Notes/Report: FASTING FASTING:YES FASTING: YES APOLIPOPROTEIN B 71 <90 mg/dL Risk: Optimal <90 mg/dL; Moderate 90-119 mg/dL; High >= 120 mg/dL; Cardiovascular event risk category cut points (optimal, moderate, high) are based on National Lipid Association recommendations- Orozco TA et al. J of Clin Lipid. 2015; 9: 129-169 and Chetan PS et al. Endocr Pract. 2017;23(Suppl 2):1-87. CARDIO IQ(R) APOLIPOPROTEIN A1 (46420) Reviewed date:03/13/2024 08:10:31 AM Interpretation: Performing Lab:Linda4, [place] [facility]-[place] [facility], [address], MvmeewsojWP[address] Tom Serrano PhD,[employer] Notes/Report: FASTING FASTING:YES FASTING: YES APOLIPOPROTEIN A1 122 >114 mg/dL Risk, Male: Optimal >= 115 mg/dL; High < 115 mg/dL; Risk, Female: Optimal >= 125 mg/dL; High <125 mg/dL; Cardiovascular event risk category cut points (optimal, high) are based on the AMORIS study Jf G et al. J [facility] Assistant Med. 2004;255:188-205. CARDIO IQ(R) HEMOGLOBIN A1c (94547) Reviewed date:03/13/2024 08:15:42 AM Interpretation: Performing Lab:Linda4, [facility] ([facility]-[place] [facility].[address], [address], KkqshrsnwLN[address] Tom Serrano PhD,[employer] Notes/Report: FASTING FASTING:YES FASTING: YES HEMOGLOBIN A1c [...] change in test platforms from the Osuna Straightener to the Vic[employer] chong c503 may have shifted HbA1c results compared to historical results. Based on laboratory validation testing conducted at [facility], the Vicenta platform relative to the Osuna [...] is not recommended. CARDIO IQ(R) HS CRP (49098) Reviewed date:03/13/2024 08:15:47 AM Interpretation: Performing Lab:Adelina [facility] [address], [address], XldpdqduqEC[address] Tom Serrano PhD,[employer] Notes/Report: FASTING FASTING:YES FASTING: YES HS CRP [...] The AHA/CDC recommendations are based on Stephanie Leggett, Devon WALTERS, et al. Markers of inflammation and cardiovascular disease: application to clinical and public health practice: A statement for healthcare professionals from the Centers for Disease Control and Prevention and the [place] Heart Association. Circulation 2003; 107(3): 499-511. For [...] for Disease Control and Prevention and the [place] Heart Association. Circulation 2003; 107(3): 499-511. COMPREHENSIVE METABOLIC ROBEL Rocha (54637) Reviewed date:03/06/2024 09:19:48 AM Interpretation: Performing Lab:NL2, [facility] Urhb[address] [facility] Lewis Boldenoksana Notes/Report: FASTING FASTING:YES FASTING: [...] Reviewed date:03/13/2024 08:10:31 AM Interpretation: Performing Lab:Adelina, [place] [facility], [address], YndpeegsxUH[address] Tom Serrano PhD,[employer] Notes/Report: FASTING FASTING:YES FASTING: YES CHOLESTEROL, TOTAL [...] Reid SS et al. MARIA DOLORES. 2013;310(19): 6201-0707 (http://education.Stackdriver.com/faq/BSP345) LDL-C is now calculated using the Reid-Raphael calculation, which is a validated novel method providing better accuracy than the Friedewald equation in the estimation of LDL-C. Reid SS et al. MARIA DOLORES. 2013;310(19): 1282-0430 (http://education.Stackdriver.com/faq/YRA321) CHOL/HDLC RATIO 2.7 <5.0 calc NON HDL [...] is considered a therapeutic option. CARDIO IQ(R) HEMOGLOBIN A1c (64806) Reviewed date:12/11/2023 09:05:13 AM Interpretation: Performing Lab:Adelina, [facility], [address] HospitalTjvokrmpdUP[address] Tom Serrano PhD,[employer] Notes/Report: NON-FASTING; NON-FASTING; NON-FASTING; NON-FASTING FASTING:YES FASTING: [...] children. This test was performed on the [employer] chong c503 platform. Effective 07/03/2023, a change in test platforms from the Osuna Straightener to the Vicenta chong c503 may have shifted HbA1c results compared to historical results. Based on laboratory validation testing conducted at [facility], the Vicenta platform relative to the Osuna platform had an average increase in HbA1c value of <=0.3%. This difference is within accepted variability established by the National Glycohemoglobin Standardization Program. Note that not all individuals will have had a shift in their results and direct comparisons between historical and current results for testing conducted on different platforms is not recommended. CARDIO IQ(R) HOMOCYSTEINE (9 1733) Reviewed date:12/11/2023 09:01:01 AM Interpretation: Performing Lab:Z4M, Voovio aka [employer]Voov[facility] aka [facility].[address], [address], FlpxirbeuOW[address] Tom Serrano PhD,[employer] Notes/Report: NON-FASTING; NON-FASTING; NON-FASTING; NON-FASTING FASTING:YES FASTING: YES HOMOCYSTEINE 14.9 <11.4 umol/L Homocysteine is increased by functional deficiency of folate or vitamin B12. Testing for methylmalonic acid differentiates between these deficiencies. Other causes of increased homocysteine include renal failure, folate antagonists such as methotrexate and phenytoin, and exposure to nitrous oxide. Selhusushma J, et al. [employer] Assistant Med. 1999;131(5):331-9. Homocysteine is increased by functional deficiency of folate or vitamin B12. Testing for methylmalonic acid differentiates between these deficiencies. Other causes of increased homocysteine include renal failure, folate antagonists such as methotrexate and phenytoin, and exposure to nitrous oxide. Selhub J, et al., [employer] Assistant Med. 1999;131(5):331-9. CARDIO IQ(R) HS CRP (08130) Reviewed date:12/11/2023 09:00:50 AM Interpretation: Performing Lab:Linda4Dalton, Voovio aka [employer]Voovio aka [employer].[address], [address], RhuypoafqJE[address] Tom Serrano PhD,[employer] Notes/Report: NON-FASTING; NON-FASTING; NON-FASTING; NON-FASTING FASTING:YES FASTING: YES HS CRP 3.5 <1.0 mg/L Reference Range: Optimal <1.0 mg/L, according to Chetan PS et al. Endocr Pract.2017;23(Suppl 2):1-87. The AHA/CDC [...] The AHA/CDC recommendations are based on Stephanie Leggett, Devon WALTERS, et al. Markers of inflammation and cardiovascular disease: application to clinical and public health practice: A statement for healthcare professionals from the Centers for Disease Control and Prevention and the [place] Heart Association. Circulation 2003; 107(3): 499-511. For [...] for Disease Control and Prevention and the [place] Heart Association. Circulation 2003; 107(3): 499-511. COMPREHENSIVE METABOLIC ROBEL Rocha (38809) Reviewed date:12/07/2023 08:37:23 AM Interpretation: Performing Lab:NL2, [facility] Qhofbd[address] [facility] Lewis Vela Notes/Report: NON-FASTING; NON-FASTING; NON-FASTING; NON-FASTING [...] U/L ALT 5 9-46 U/L CARDIO IQ(R) INSULIN (04200) Reviewed date:12/11/2023 08:57:10 AM Interpretation: Performing Lab:Adelina, [facility] [place] [address], [address], YfswekwmiAC[address] Tom Serrano PhD,[employer] Notes/Report: NON-FASTING; NON-FASTING; NON-FASTING; NON-FASTING FASTING:YES FASTING: YES INSULIN 4.1 <18.5 uIU/mL REASON FOR REFERRAL No Information MEDICATIONS Medication [...] Tobacco use: nonsmoker Section Notes: [place] PROBLEMS Problem Type ICD Code Onset Dates Problem Status W/U Status Risk SNOMED Code Notes Problem Mixed hyperlipidemia (E78.2) Active confirmed 045269805 Problem Primary insomnia (F51.01) Active confirmed 5258316 Problem Seasonal allergies (J30.2) Active confirmed Seasonal allergy (415196716) Problem Primary hypertension (I10) Active confirmed 74727971 Problem Pre-diabetes (R73.03) Active confirmed 809139874 Problem Arthritis (M19.90) Active confirmed 372 3001 Problem Cognitive dysfunction (F09) Active confirmed Cognitive dysfunction (274240116) VITAL SIGNS Heart Rate 75 /min 04/10/2024 Height-cm 165.10 cm 04/10/2024 Oximetry 98 % 04/10/2024 Blood pressure diastolic 82 mm Hg 04/10/2024 Weight-kg 83.19 kg 04/10/2024 Height 65 in 04/10/2024 Blood pressure systolic 136 mm Hg 04/10/2024 Weight 183.4 lbs 04/10/2024 BMI 30.52 kg/m2 04/10/2024 Encounters Encounter Location Date Provider Diagnosis [address] [id number] 09/14/[address] [id number] 07/09/2024 Nichelle Salgado [address] [id number] 09/28/2023 Nichelle Salgado Pre-diabetes R73.03 ; Primary insomnia F51.01 ; Mixed hyperlipidemia E78.2 ; Primary hypertension I10 ; Arthritis M19.90 ; Actinic keratosis L57.0 and Encounter to discuss test results Z71.[address] [id number] 10/10/2023 Nichelle Salgado Pre-diabetes R73.03 ; Primary insomnia F51.01 and Actinic keratosis L57.[address] [id number] 12/11/2023 Nichelle Damian Mixed hyperlipidemia E78.2 ; Pre-diabetes R73.03 ; Primary hypertension I10 and Toenail fungus B35.[address] [id number] 02/12/2024 Nichellelindsay Salgado Primary insomnia F51 .01 ; Annual physical exam Z00.00 ; Mixed hyperlipidemia E78.2 ; Pre-diabetes R73.03 ; Primary hypertension I10 ; Encounter for screening examination for mental health and behavioral disorders, unspecified Z13.30 ; Encounter for screening for other disorder Z13.89 ; Actinic keratoses L57.0 ; Cognitive dysfunction F09 and Seasonal allergies J30.[address] [id number] 03/19/2024 Nichellelindsay Salgado Mixed hyperlipidemia E78.2 ; Pre-diabetes R73.03 ; Primary hypertension I10 and Primary insomnia F51.[address] [id number] 04/10/2024 Nichelle Salgado Seasonal allergies J30.2 ; Primary hypertension I10 and Primary insomnia F51.[address] [id number] 09/17/2023 Nichelle Damian ASSESSMENTS Encounter Date Diagnosis [...] (ICD-10 - Z00.00) We discussed short and manager intermediate health goals. Exam today was without concerns, states feels safe at home. Reports having working CO2 and Smoke detectors. Encouraged to wear sunscreen. Reports wearing seatbelt when driving or as a passenger. Encourage regular exercise of moderate intensity 30 min 5x/week. 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 N Total Score: 0 Scoring: Item responses [...] using liquid pepper that he bought on [employer] and states that it is working 03/19/2024 Other Total time spen t with patient 32 minutes which includes face to face visit, education and coordination of care. 04/10/2024 Other Will be in [facility] for 2 months. He is driving down with his PLAN OF TREATMENT Future Test Test Name Order Date COMPREHENSIVE METABOLIC PANEL (28694) CBC (INCLUDES DIFF/PLT) (6399) CARDIO IQ(R) HS CRP (39613) 03/19/2024 CARDIO IQ(R) HEMOGLOBIN A1c (60324) 03/01 CARDIO IQ(R) HOMOCYSTEINE (58597) 2023 CARDIO IQ(R) VITAMIN D, 25 HYDROXY (9173 5) 03/19/2024 Insurance Providers Payer Name Payer Address Payer Phone Subscriber Number Group Number Insured Name Patient Relationship to Insured Coverage Start Date Coverage End Date Medicare [address] [place] [address] [phone] [id number] LIBIA GILMORE Self - patient is the insured [facility] [facility] [employer] [address] [place] [address] [phone] [id number] LIBIA GILMORE Self - patient is the insured MEDICAL (GENERAL) HISTORY Medical History History ICD Code Hyperkeratosis Hyperlipidemia Impaired fasting glucose Primary hypertension Hernia Arthritis Quadruple Bypass Dentures (upper/lower) Surgical History Surgery Date(Month/Year) Rt. lung, Lobectomy (lung infection) 197 0 Angioplasty 1987, 1997 x2 Cardiac Cath (Quadruple Bypass) 2009 Cataract Surgery
--- OUTSIDE RECORDS SUMMARY | 2024-08-13 14:13 | XMS_ITS ---
Author Organization [employer] [facility] Address [address] [place] [phone] Care Team Providers Care Earth Burner Name Role Phone CHIO MENDENHALL Primary Care Provider Nichelle Salgado Unavailable [phone] ALLERGIES No Known Allergies REASON FOR VISIT [...] Tobacco use: nonsmoker Section Notes: Lives in [place], [place] with VITAL SIGNS Blood pressure systolic 134 mm Hg 03/19/20 24 Blood pressure diastolic 62 mm Hg 024 Heart Rate 67 /min 03/19/2024 Oximetry 97 % 03/19/2024 Weight 183.4 lbs 03/19/2024 Weight-kg 83.19 kg 03/19/2024 Height 65 in 03/19/2024 Height-cm 165.10 cm 03/19/2024 BMI 30.52 kg/m2 03/19/2024 Encounters Encounter Location Date Provider Diagnosis [address] [id number] 03/19/2024 Nichelle Salgado Mixed hyperlipidemia E78.2 ; [...] Test Name Order Date COMPREHENSIVE METABOLIC PANEL (23642) CBC (INCLUDES DIFF/PLT) (6399) CARDIO IQ(R) HS CRP (72210) 03/19/2024 CARDIO IQ(R) HEMOGLOBIN A1c (54940) 03/01 CARDIO IQ(R) HOMOCYSTEINE (19689) 2023 CARDIO IQ(R) VITAMIN D, 25 HYDROXY (9173 5) 03/19/2024 Next Appt Details Follow Up: 3 Weeks,3 Months, Reason: FU BP; FU 3M Labs Progress Notes * YEMI GILMOREDOB: 5 (79 yo M)Acc No.[id number]:03/19/2024 Progress Notes Patient:??MANDO YEMI Provider:??Nichelle Salgado DNP :1945?Age:79 Y?Sex:Ma le Date:03/19/2024 Phone: Address:[address] [place] [address], [phone] Pcp:CHIO MENDENHALL Subjective: * Chief Complaints: * ?F/u labs * HPI: ?Patient Care Team:?Spare Parts Clerk:??Dr. Glass.? Providers/Specialists: Vascular: Dr. Funes. ?Visit info:? [...] lung, Lobectomy (lung infection) 1970Angioplasty 1987, 1997 y0Fctqrjc Cath (Quadruple Bypass) 2010Cataract Surgery * Hospitalization/Major Diagno stic Procedure:?? * Family History:??Father: dec eased 72 yrs, Bladder CA.??Mother: 82 yrs, Alzheimer's.??Sister: alive, Alzheimer's.??2 son(s) , 1 daughter(s) - healthy. .?? * Social History:?Tobacco Use:??Tobacco Use/Smoking??Tobacco use:??nonsmoker.?Drugs/Alcohol:??Do you smoke marijuana?: Denies. Do you drink alcohol?: Yes, Socially. ?Household:??Household??Marital status:??,??Number of adults in household:??2.?Miscellaneous:??Exercise: daily, for 30-60 minutes a day. Occupation: retired. ?Lives in [place] with . * Medications:??TakingPrevagen 10 MG [...] * ?Past Orders: ?Lab:CARDIO IQ(R) LIPID PANEL (34325) (Order Date - 02/12/2024) (Collection Date & Time - 03/05/2024 09:08 AM) ? Value Reference Range ?TRIGLYCERIDES 63 <150 - mg/dL ?CHOLESTEROL, TOTAL 134 <200 - mg/dL ?HDL CHOLESTEROL 49 >39 - mg/dL ?LDL-CHOLESTEROL 71 <100 - mg/dL (calc) ?CHOL/HDLC RATIO 2.7 <5.0 - calc ?NON HDL CHOLESTEROL 85 <130 - mg/dL (calc) ?Lab:COMPREHENSIVE META BOLIC PANEL (93365) (Order Date - 02/12/2024) (Collection Date & [...] - mL/min/1.73m2 ?Lab:CARDIO IQ(R) HS CR P (95160) (Order Date - 02/12/2024) (Collection Date & Time - 03/05/2024 09:08 AM) ? Value Reference Range ?HS CRP 1.2 H <1.0 - mg/L ?Lab:CARDIO IQ(R) HEMOG LOBIN A1c (54479) (Order Date - 02/12/2024) (Collection Date & Time - 03/05/2024 09:08 AM) ? Value Reference Range ?HEMOGLOBIN A1c 6.5 H <5.7 - % ?Lab:CARDIO IQ(R) APOLI POPROTEIN A1 (72611) (Order Date - 02/12/2024) (Collection Date & Time - 03/05/2024 09:08 AM) ? Value Reference Range ?APOLIPOPROTEIN A1 122 >114 - mg/dL ?Lab:CARDIO IQ(R) APOL IPOPROTEIN B (02788) (Order Date - 02/12/2024) (Collection Date & Time - 03/05/2024 09:08 AM) ? Value Reference Range ?APOLIPOPROTEIN B 71 <90 - mg/dL ?Lab:CARDIO IQ(R) HOMOC YSTEINE (99768) (Order Date - 02/12/2024) (Collection Date & Time - 03/05/2024 09:08 AM) ? Value Reference Range ?HOMOCYSTEINE 19.0 H <11.4 - umol/L ?Lab:CARDIO IQ(R) VITAM IN D, 25 HYDROXY (48214) (Order Date - 02/12/2024) (Collection Date & [...] FOR 30 DAYS.?LAB: CARDIO IQ(R) HEMOGLOBIN A1c (23769) (Ordered for 03/19/2024) ?LAB: CARDIO IQ(R) HOMOCYSTEINE (03992) (Ordered for 03/19/2024) ?LAB: CARDIO IQ(R) HS CRP (75971) (Ordered for 03/19/2024) ?LAB: CARDIO IQ(R) VITAMIN D, 25 HYDROXY (72664) (Ordered for 03/19/2024) ?LAB: CBC (INCLUDES DIFF/PLT) (6099) (Ordered for 03/19/2024) ?LAB: COMPREHENSIVE METABOLIC PANEL (97800) (Ordered for 03/19/2024) Notes: Lifestyle modification All [...] Tablet, Refills 1.?LAB: CARDIO IQ(R) HEMOGLOBIN A1c (86475) (Ordered for 03/19/2024) ?LAB: CARDIO IQ(R) HOMOCYSTEINE (71541) (Ordered for 03/19/2024) ?LAB: CARDIO IQ(R) HS CRP (91668) (Ordered for 03/19/2024) ?LAB: CARDIO IQ(R) VITAMIN D, 25 HYDROXY (13506) (Ordered for 03/19/2024) ?LAB: CBC (INCLUDES DIFF/PLT) (6399) (Ordered for 03/19/2024) ?LAB: COMPREHENSIVE METABOLIC PANEL (59924) (Ordered for 03/19/2024) Notes: Continue medication as directed Low-salt diet Weight management Regular exercise Yearly microalbumin? 4.??Primary insomnia?? Continue traZODone HCl Tablet, 50 MG, 1/2 tablet at bedtime as needed, Orally, Once a day.?LAB: CARDIO IQ(R) HEMOGLOBIN A1c (98235) (Ordered for 03/19/2024) ?LAB: CARDIO IQ(R) HOMOCYSTEINE (01839) (Ordered for 03/19/2024) ?LAB: CARDIO IQ(R) HS CRP (44499) (Ordered for 03/19/2024) ?LAB: CARDIO IQ(R) VITAMIN D, 25 HYDROXY (59315) (Ordered for 03/19/2024) ?LAB: CBC (INCLUDES DIFF/PLT) (0699) (Ordered for 03/19/2024) ?LAB: COMPREHENSIVE METABOLIC PANEL (53258) (Ordered for 03/19/2024) Notes: Sleeping well means [...] RQR * Preventive Medicine:?Last CPE: 12/29/2021 @ [facility]; 01/18/23 DEXA: No Colonoscopy: Yes, approx. 2011 Endoscopy: No Covid Vac: Yes Flu Vac: Yes Shingles Vac: No PV: No. * Follow Up:??3 Weeks,3 Months (Reason: FU BP; FU 3M Labs) * Billing Information: * Visit Code:?? 33199 Office Visit, Est Pt., Level 4. * Procedure Codes:?? G8783 NORMAL BP READING DOC F/U NOT RQR. * Sign off status: Completed true * Provider:??Nichelle Salgado DNP Date:?? History and Physical Notes * HPI (History of Present Illness) Category Sub-Category Detail Notes Category Not es Patient Care Team Spare Parts Clerk: Dr. Glass Providers /Specialists: Vascular: Dr. Funes [...]
--- OUTSIDE RECORDS SUMMARY | 2024-08-13 14:13 | XMS_ITS ---
Author Organization [employer] [facility] Address [address] [place] [id number] Care Team Providers Care Senior Risk Analyst Name Role Phone CHIO MENDENHALL Primary Care Provider Nichelle Salgado Unavailable [phone] ALLERGIES No Known Allergies REASON FOR VISIT [...] Tobacco use: nonsmoker Section Notes: Lives in [place], [place] with VITAL SIGNS Blood pressure systolic 136 mm Hg 04/10/20 24 Blood pressure diastolic 82 mm Hg 024 Heart Rate 75 /min 04/10/2024 Oximetry 98 % 04/10/2024 Weight 183.4 lbs 04/10/2024 Weight-kg 83.19 kg 04/10/2024 Height 65 in 04/10/2024 Height-cm 165.10 cm 04/10/2024 BMI 30.52 kg/m2 04/10/2024 Encounters Encounter Location Date Provider Diagnosis [address] [id number] 04/10/2024 Nichelle Salgado Seasonal allergies J30.2 ; [...] the bathroom. 04/10/2024 Other Will be in [place] for 2 months. He is driving down [...] use the bathroom. Other Will be in [place] f or 2 months. He is driving down with his Next Appt Details Follow Up: 2 Months, Reason: Has FU In June to Fu labs Progress Notes * MANDO EYMIDOB: [birth year] (79 yo M)Acc No.[id number]:04/10/2024 Progress Notes Patient:??YEMI GILMORE Provider:??Nichelle Salgado DNP :1945?Age:79 Y?Sex:Ma le Date:04/10/2024 Phone: Address:[address] [place] [address], [id number] Pcp:CHIO MENDENHALL Subjective: * Chief Complaints: * ?BP * HPI: ?Patient Care Team:?Business And Services Instructor:??Dr. Glass.? Providers/Specialists: Vascular: Dr. Funes. ?Visit info:? Yemi presents in the office today to check his BP. Yemi also states that he is still having trouble sleeping. ?He is back to exercising with walking and using a rower. * ROS:?Reviewed. * Medical History:?? * Surgical History:??Rt. lung, Lobectomy (lung infection) 1970Angioplasty 1987, 1997 [id number] Cath (Quadruple Bypass) 2010Cataract Surgery * Hospitalization/Major Diagno stic Procedure:?? * Family History:??Father: dec eased 72 yrs, Bladder CA.??Mother: 82 yrs, Alzheimer's.??Sister: alive, Alzheimer's.??2 son(s) , 1 daughter(s) - healthy. .?? * Social History:?Tobacco Use:??Tobacco Use/Smoking??Tobacco use:??nonsmoker.?Drugs/Alcohol:??Do you smoke marijuana?: Denies. Do you drink alcohol?: Yes, Socially. ?Household:??Household??Marital status:??,??Number of adults in household:??2.?Miscellaneous:??Exercise: daily, for 30-60 minutes a day. Occupation: retired. ?Lives in [place], [place] with . * Medications:??TakingPrevagen 10 MG [...] the bathroom.? 4.??Others?? Notes: Will be in [place] for 2 months. He is driving down with his ? * Procedure Codes:?? * Preventive Medicine:?Last CPE: 12/29/2021 @ [facility]; 01/18/23 DEXA: No Colonoscopy: Yes, approx. 2011 Endoscopy: No Covid Vac: Yes Flu Vac: Yes Shingles Vac: No PV: No. * Follow Up:??2 Months (Reason : Has FU In June to Fu labs) * Billing Information: * Visit Code:?? 89032 Office Visit, Est Pt., Level 4. * Procedure Codes:?? * Sign off status: Completed true * Provider:??Nichelle Salgado DNP Date:??03/2024 History and Physical Notes * HPI (History of Present Illness) Category Sub-Category Detail Notes Category Not es Patient Care Team Business And Services Instructor: Dr. Glass Providers /Specialists: Vascular: Dr. Funes [...]
--- OUTSIDE RECORDS SUMMARY | 2024-08-13 14:13 | XMS_ITS | Patient Health Record ---
Author Organization [facility] Address [address] [facility] [address] [place] [address] Care Team Providers Care Records Management Engineer Name Role Phone Matilde Mata Primary Care [...] Medicare of [place] [address] [place] [phone] [id number] Yemi Cantu Self - patient is the insured [employer] [place] [facility] [address] [place] [address] [phone] [id number] Yemi Cantu Self - patient is the [...] hypertension I10 Atherosclerotic heart diseas e of [place] coronary artery without angina pectoris I25.10 Benign prostatic hyperplasia (N40.0) 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
== END 2024-08-13 16:45 | disposition home or self-care (01) ==
PROVIDERS: PCP Physician Assistant Medical; Visit Provider Nurse Practitioner Family
DX: M54.50 Low back pain, unspecified (principal); M79.605 Pain in left leg; V89.2XXA Person injured in unspecified motor-vehicle accident, traffic, initial encounter; F51.05 Insomnia due to other mental disorder; Z04.2 Encounter for examination and observation following work accident; F40.9 Phobic anxiety disorder, unspecified

== ENCOUNTER 2024-08-13 11:43 | Outpatient (REF) | payer MEDICARE, SELFPAY ==
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
== END 2024-08-13 11:44 | disposition home or self-care (01) ==
LOC: HO.HMGCX 11:43
PROVIDERS: PCP Physician Assistant Medical; Visit Provider Nurse Practitioner Family
DX: M54.50 Low back pain, unspecified (principal); M79.605 Pain in left leg
CPT/HCPCS: 72100; 72202; 72220; 99212

== ENCOUNTER → 2024-08-13 14:42 | Outpatient (BNV) | payer MEDICARE, SELFPAY | PROVIDERS: PCP Physician Assistant Medical; Visit Provider Radiology Diagnostic Radiology | DX: M25.552 Pain in left hip (principal); V89.2XXA Person injured in unspecified motor-vehicle accident, traffic, initial encounter | CPT/HCPCS: 72100; 72202; 72220 ==

== ENCOUNTER 2024-08-18 09:03 | Outpatient (AMB) | payer MEDICARE, SELFPAY ==
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
[2024-08-18 09:14] VITALS: BP 122/70; PULSE 76; O2SAT 98
--- OUTSIDE RECORDS SUMMARY | 2024-08-18 09:14 | XMS_ITS | Patient Health Record ---
Author Organization [facility] Address [address] [place] [phone] Care Team Providers Care Recreation Attendant Supervisor Name Role Phone CHIO MENDENHALL Primary Care Provider Nichelle Salgado Unavailable [phone] ALLERGIES No Known Allergies RESULTS Component Value Reference Range Notes CARDIO IQ(R) HEMOGLOBIN A1c (19341) Reviewed date:12/11/2023 09:05:13 AM Interpretation: Performing Lab:[facility], [facility] [address], [address], [id number] Tom Serrano PhD,[facility] Notes/Report: NON-FASTING; NON-FASTING; NON-FASTING; NON-FASTING FASTING:YES [...] change in test platforms from the Osuna Research & Analytics Manager to the Vicenta chong c503 may have shifted HbA1c results compared to historical results. Based on laboratory validation testing conducted at [facility], the Vicenta platform relative to the Osuna [...] Reviewed date:12/11/2023 09:01:01 AM Interpretation: Performing Lab:Adelina, [employer].[address] [place] [address], [address], [id number] Tom Serrano PhD,[facility] Notes/Report: NON-FASTING; NON-FASTING; NON-FASTING; NON-FASTING FASTING:YES FASTING: YES HOMOCYSTEINE 14.9 <11.4 umol/L Homocysteine is increased by functional deficiency of folate or vitamin B12. Testing for methylmalonic acid differentiates between these deficiencies. Other causes of increased homocysteine include renal failure, folate antagonists such as methotrexate and phenytoin, and exposure to nitrous oxide. Ila J, et al. Kasey Blow Machine Tender Starch Spraying Med. 1999;131(5):331-9. Homocysteine is increased by functional deficiency of folate or vitamin B12. Testing for methylmalonic acid differentiates between these deficiencies. Other causes of increased homocysteine include renal failure, folate antagonists such as methotrexate and phenytoin, and exposure to nitrous oxide. Ila Dickson, et al., Kasey Blow Machine Tender Starch Spraying Med. 1999;131(5):331-9. CARDIO IQ(R) HS CRP (70711) Reviewed date:12/11/2023 09:00:50 AM Interpretation: Performing Lab:Adelina [employer] [place] [address], [address], [id number] Tom Serrano PhD,[facility] Notes/Report: NON-FASTING; NON-FASTING; NON-FASTING; NON-FASTING FASTING:YES [...] for Disease Control and Prevention and the [place] Heart Association. Circulation 2003; 107(3): 499-511. For [...] for Disease Control and Prevention and the [place] Heart Association. Circulation 2003; 107(3): 499-511. COMPREHENSIVE METABOLIC PANZeenat Rocha (30308) Reviewed date:12/07/2023 08:37:23 AM Interpretation: Performing Lab:NL2, [facility] X[address]guecpd[address] [facility] Lewis Vela Notes/Report: NON-FASTING; NON-FASTING; NON-FASTING; NON-FASTING [...] ALT 5 9-46 U/L CARDIO IQ(R) INSULIN (60752) Reviewed date:12/11/2023 08:57:10 AM Interpretation: Performing Lab:Z4, [employer] [employer], [address], YygjqtbrtPM[address] Tom Serrano PhD,[facility] Notes/Report: NON-FASTING; NON-FASTING; NON-FASTING; NON-FASTING FASTING:YES FASTING: YES INSULIN 4.1 <18.5 uIU/mL CARDIO IQ(R) LIPID PANEL (91 716) Reviewed date:03/13/2024 08:10:31 AM Interpretation: Performing Lab:Z4M, [facility], [address], [id number] Tom Serrano PhD,[facility] Notes/Report: FASTING FASTING:YES FASTING: YES CHOLESTEROL, [...] Reid SS et al. MARIA DOLORES. 2013;310(19): 8269-1282 (http://education.TNC.Covalent Software/faq/OXS892) LDL-C is now calculated using the Reid-Raphael calculation, which is a validated novel method providing better accuracy than the Friedewald equation in the estimation of LDL-C. Reid SS et al. MARIA DOLORES. 2013;310(19): 8933-9469 (http://education.TNC.Covalent Software/faq/OKK792) CHOL/HDLC RATIO 2.7 <5.0 calc NON HDL [...] <70 mg/dL) is considered a therapeutic option. COMPREHENSIVE METABOLIC PANE L (48075) Reviewed date:03/06/2024 09:19:48 AM Interpretation: Performing Lab:FADY2, [facility] [address] [place], [place] [address] Lewis Vela Notes/Report: FASTING FASTING:YES FASTING: YES GLUCOSE 114 [...] U/L ALT 6 9-46 U/L CARDIO IQ(R) HS CRP (19649) Reviewed date:03/13/2024 08:15:47 AM Interpretation: Performing Lab:Adelina, [employer].[facility] [address], [address], LlzqjugryYJ[address] Tom Serrano PhD,[facility] Notes/Report: FASTING FASTING:YES FASTING: YES HS [...] for Disease Control and Prevention and the [place] Heart Association. Circulation 2003; 107(3): 499-511. For [...] for Disease Control and Prevention and the [place] Heart Association. Circulation 2003; 107(3): 499-511. CARDIO IQ(R) HEMOGLOBIN A1c (65565) Reviewed date:03/13/2024 08:15:42 AM Interpretation: Performing Lab:Adelina [facility] [place] [address], [address], [id number] Tom Serrano PhD,[facility] Notes/Report: FASTING FASTING:YES FASTING: YES HEMOGLOBIN [...] children. This test was performed on the BitPay chong c503 platform. Effective 07/03/2023, a change in test platforms from the Osuna Research & Analytics Manager to the Vicenta chong c503 may have shifted HbA1c results compared to historical results. Based on laboratory validation testing conducted at [facility], the Vicenta platform relative to the Osuna platform had an average increase in HbA1c value of <=0.3%. This difference is within accepted variability established by the National Glycohemoglobin Standardization Program. Note that not all individuals will have had a shift in their results and direct comparisons between historical and current results for testing conducted on different platforms is not recommended. CARDIO IQ(R) APOLIPOPROTEIN A1 (03115) Reviewed date:03/13/2024 08:10:31 AM Interpretation: Performing Lab:Adelina [facility] [place] [address], [address], NzagcyyvcAA[address] Tom Serrano PhD,[facility] Notes/Report: FASTING FASTING:YES FASTING: YES APOLIPOPROTEIN A1 122 >114 mg/dL Risk, Male: Optimal >= 115 mg/dL; High < 115 mg/dL; Risk, Female: Optimal >= 125 mg/dL; High <125 mg/dL; Cardiovascular event risk category cut points (optimal, high) are based on the AMORIS study Jf Duarte et al. J Blow Machine Tender Starch Spraying Med. 2004;255:188-205. CARDIO IQ(R) APOLIPOPROTEIN B (96939) Reviewed date:03/13/2024 08:10:31 AM Interpretation: Performing Lab:Adelina [facility] [place], [place] [address], [address], [id number] Tom Serrano PhD,[facility] Notes/Report: FASTING FASTING:YES FASTING: YES APOLIPOPROTEIN B 71 <90 mg/dL Risk: Optimal <90 mg/dL; Moderate 90-119 mg/dL; High >= 120 mg/dL; Cardiovascular event risk category cut points (optimal, moderate, high) are based on National Lipid Association recommendations- Orozco TA et al. J of Clin Lipid. 2015; 9: 129-169 and Chetan PS et al. Endocr Pract. 2017;23(Suppl 2):1-87. CARDIO IQ(R) HOMOCYSTEINE (9 1733) Reviewed date:03/13/2024 08:15:38 AM Interpretation: Performing Lab:Adelina [facility] fluid Operations [facility] [address], [id number] Tom Serrano PhD,[facility] Notes/Report: FASTING FASTING:YES FASTING: YES HOMOCYSTEINE 19.0 <11.4 umol/L Homocysteine is increased by functional deficiency of folate or vitamin B12. Testing for methylmalonic acid differentiates between these deficiencies. Other causes of increased homocysteine include renal failure, folate antagonists such as methotrexate and phenytoin, and exposure to nitrous oxide. Selhub J, et al. Kasey Blow Machine Tender Starch Spraying Med. 1999;131(5):331-9. Homocysteine is increased by functional deficiency of folate or vitamin B12. Testing for methylmalonic acid differentiates between these deficiencies. Other causes of increased homocysteine include renal failure, folate antagonists such as methotrexate and phenytoin, and exposure to nitrous oxide. Selhusushma J, et al., Kasey Blow Machine Tender Starch Spraying Med. 1999;131(5):331-9. CARDIO IQ(R) VITAMIN D, 25 H YDROXY (15700) Reviewed date:03/13/2024 08:10:46 AM Interpretation: Performing Lab:[facility] [employer]Alton Yun [id number], [id number] Dilshad King M.D.,PhD Notes/Report: FASTING FASTING:YES FASTING: [...] ng/mL. For additional information, please refer to http://education.OwnerListens/faq/UMI348 (This link is being provided for informational/ educational purposes only.) VITAMIN D, 25-OH, D3 31 This test was developed and its analytical performance characteristics have been determined by [facility] [place]. It has not been cleared or approved by the U.S. Food and Drug Administration. This assay has been validated pursuant to the CLIA regulations and is used for clinical purposes. VITAMIN D, 25-OH, D2 <4 This test was developed and its analytical performance characteristics have been determined by [facility] [place]. It has not been cleared or approved by the U.S. Food and Drug Administration. This assay has been validated pursuant to the CLIA regulations and is used for clinical purposes. REASON FOR REFERRAL No Information MEDICATIONS Medication [...] Tobacco use: nonsmoker Section Notes: [place] with PROBLEMS Problem Type ICD Code Onset Dates Problem Status W/U Status Risk SNOMED Code Notes Problem Mixed hyperlipidemia (E78.2) Active confirmed 037928022 Problem Primary insomnia (F51.01) Active confirmed 8303813 Problem Seasonal allergies (J30.2) Active confirmed Seasonal allergy (500782274) Problem Primary hypertension (I10) Active confirmed 76831283 Problem Pre-diabetes (R73.03) Active confirmed 941255900 Problem Arthritis (M19.90) Active confirmed 372 3001 Problem Cognitive dysfunction (F09) Active confirmed Cognitive dysfunction (757981774) VITAL SIGNS Heart Rate 75 /min 04/10/2024 Height-cm 165.10 cm 04/10/2024 Oximetry 98 % 04/10/2024 Blood pressure diastolic 82 mm Hg 04/10/2024 Weight-kg 83.19 kg 04/10/2024 Height 65 in 04/10/2024 Blood pressure systolic 136 mm Hg 04/10/2024 Weight 183.4 lbs 04/10/2024 BMI 30.52 kg/m2 04/10/2024 Encounters Encounter Location Date Provider Diagnosis [address] [id number] 09/14/[address] [id number] 07/09/2024 Nichelle Salgado [address] [id number] 09/28/2023 Nichelle Salgado Pre-diabetes R73.03 ; Primary insomnia F51.01 ; Mixed hyperlipidemia E78.2 ; Primary hypertension I10 ; Arthritis M19.90 ; Actinic keratosis L57.0 and Encounter to discuss test results Z71.[address] [id number] 10/10/2023 Nichelle Salgado Pre-diabetes R73.03 ; Primary insomnia F51.01 and Actinic keratosis L57.[address] [id number] 12/11/2023 Nichelle Damian Mixed hyperlipidemia E78.2 ; Pre-diabetes R73.03 ; Primary hypertension I10 and Toenail fungus B35.[address] [id number] 02/12/2024 Nichellelindsay Salgado Primary insomnia F51 .01 ; Annual physical exam Z00.00 ; Mixed hyperlipidemia E78.2 ; Pre-diabetes R73.03 ; Primary hypertension I10 ; Encounter for screening examination for mental health and behavioral disorders, unspecified Z13.30 ; Encounter for screening for other disorder Z13.89 ; Actinic keratoses L57.0 ; Cognitive dysfunction F09 and Seasonal allergies J30.[address] [id number] 03/19/2024 Nichellelindsay Salgado Mixed hyperlipidemia E78.2 ; Pre-diabetes R73.03 ; Primary hypertension I10 and Primary insomnia F51.[address] [id number] 04/10/2024 Nichelle Salgado Seasonal allergies J30.2 ; Primary hypertension I10 and Primary insomnia F51.[address] [id number] 09/17/2023 Nichelle Damian ASSESSMENTS Encounter Date Diagnosis [...] (ICD-10 - Z00.00) We discussed short and salvage determiner health goals. Exam today was without concerns, [...] or to get rid of a hangover (eye-driver wheelchair)? N Total Score: 0 Scoring: Item responses [...] using liquid pepper that he bought on [employer] and states that it is working 03/19/2024 Other Total time spen t with patient 32 minutes which includes face to face visit, education and coordination of care. 04/10/2024 Other Will be in [facility] for 2 months. He is driving down with his PLAN OF TREATMENT Future Test Test Name Order Date COMPREHENSIVE METABOLIC PANEL (11437) CBC (INCLUDES DIFF/PLT) (6399) CARDIO IQ(R) HS CRP (35660) 03/19/2024 CARDIO IQ(R) HEMOGLOBIN A1c (99117) 03/01 CARDIO IQ(R) HOMOCYSTEINE (44839) 2023 CARDIO IQ(R) VITAMIN D, 25 HYDROXY (9173 5) 03/19/2024 Insurance Providers Payer Name Payer Address Payer Phone Subscriber Number Group Number Insured Name Patient Relationship to Insured Coverage Start Date Coverage End Date Medicare [address] [place] [address] [phone] [id number] LIBIA GILMORE Self - patient is the insured [facility] [address] [place] [address] [id number] LIBIA GILMORE Self - patient is the insured MEDICAL (GENERAL) HISTORY Medical History History ICD Code Hyperkeratosis Hyperlipidemia Impaired fasting glucose Primary hypertension Hernia Arthritis Quadruple Bypass Dentures (upper/lower) Surgical History Surgery Date(Month/Year) Rt. lung, Lobectomy (lung infection) 197 0 Angioplasty 1987, 1997 x2 Cardiac Cath (Quadruple Bypass) 2009 Cataract Surgery
--- OUTSIDE RECORDS SUMMARY | 2024-08-18 09:15 | XMS_ITS | Patient Health Record ---
Author Organization [facility] Address [address] [facility] [address] [place] [address] Care Team Providers Care Deputy Fire Marshal Name Role Phone Matilde Mata Primary Care [...] [place] [address] [place] [phone] [id number] Yemi Cantu Self - patient is the insured [employer] [place] [facility] [address] [place] [address] [phone] [id number] Yemi Cantu Self - patient is the [...] hypertension I10 Atherosclerotic heart diseas e of [place] coronary artery without angina pectoris I25.10 Benign prostatic hyperplasia (N40.0) 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
--- OUTSIDE RECORDS SUMMARY | 2024-08-18 09:15 | XMS_ITS ---
Author Organization [employer] [facility] Address [address] [place] [phone] Care Team Providers Care Developer Trading Systems Name Role Phone CHIO MENDENHALL Primary Care Provider Nichelle Salgado Unavailable [phone] ALLERGIES No Known Allergies REASON FOR VISIT [...] Tobacco use: nonsmoker Section Notes: Lives in [place], [place] with VITAL SIGNS Blood pressure systolic 134 mm Hg 03/19/20 24 Blood pressure diastolic 62 mm Hg 024 Heart Rate 67 /min 03/19/2024 Height 65 in 03/19/2024 Weight 183.4 lbs 03/19/2024 BMI 30.52 kg/m2 03/19/2024 Oximetry 97 % 03/19/2024 Height-cm 165.10 cm 03/19/2024 Weight-kg 83.19 kg 03/19/2024 Encounters Encounter Location Date Provider Diagnosis [address] [id number] 03/19/2024 Nichelle Salgado Mixed hyperlipidemia E78.2 ; [...] Test Name Order Date COMPREHENSIVE METABOLIC PANEL (16303) CBC (INCLUDES DIFF/PLT) (6399) CARDIO IQ(R) HS CRP (28813) 03/19/2024 CARDIO IQ(R) HEMOGLOBIN A1c (66274) 03/01 CARDIO IQ(R) HOMOCYSTEINE (18964) 2023 CARDIO IQ(R) VITAMIN D, 25 HYDROXY (9173 5) 03/19/2024 Next Appt Details Follow Up: 3 Weeks,3 Months, Reason: FU BP; FU 3M Labs Progress Notes * YEMI GILMOREDOB: 5 (79 yo M)Acc No.[id number]:03/19/2024 Progress Notes Patient:??MANDO YEMI Provider:??Nichelle Salgado DNP :1945?Age:79 Y?Sex:Ma le Date:03/19/2024 Phone: Address:[address] [place] [address], [phone] Pcp:CHIO MENDENHALL Subjective: * Chief Complaints: * ?F/u labs * HPI: ?Patient Care Team:?Counter Top Maker:??Dr. Glass.? Providers/Specialists: Vascular: Dr. Funes. ?Visit info:? [...] lung, Lobectomy (lung infection) 1970Angioplasty 1987, 1997 g5Vibkgzl Cath (Quadruple Bypass) 2010Cataract Surgery * Hospitalization/Major Diagno stic Procedure:?? * Family History:??Father: dec eased 72 yrs, Bladder CA.??Mother: 82 yrs, Alzheimer's.??Sister: alive, Alzheimer's.??2 son(s) , 1 daughter(s) - healthy. .?? * Social History:?Tobacco Use:??Tobacco Use/Smoking??Tobacco use:??nonsmoker.?Drugs/Alcohol:??Do you smoke marijuana?: Denies. Do you drink alcohol?: Yes, Socially. ?Household:??Household??Marital status:??,??Number of adults in household:??2.?Miscellaneous:??Exercise: daily, for 30-60 minutes a day. Occupation: retired. ?Lives in [place] with . * Medications:??TakingPrevagen 10 MG [...] * ?Past Orders: ?Lab:CARDIO IQ(R) LIPID PANEL (92984) (Order Date - 02/12/2024) (Collection Date & Time - 03/05/2024 09:08 AM) ? Value Reference Range ?TRIGLYCERIDES 63 <150 - mg/dL ?CHOLESTEROL, TOTAL 134 <200 - mg/dL ?HDL CHOLESTEROL 49 >39 - mg/dL ?LDL-CHOLESTEROL 71 <100 - mg/dL (calc) ?CHOL/HDLC RATIO 2.7 <5.0 - calc ?NON HDL CHOLESTEROL 85 <130 - mg/dL (calc) ?Lab:COMPREHENSIVE META BOLIC PANEL (78043) (Order Date - 02/12/2024) (Collection Date & [...] - mL/min/1.73m2 ?Lab:CARDIO IQ(R) HS CR P (06874) (Order Date - 02/12/2024) (Collection Date & Time - 03/05/2024 09:08 AM) ? Value Reference Range ?HS CRP 1.2 H <1.0 - mg/L ?Lab:CARDIO IQ(R) HEMOG LOBIN A1c (24208) (Order Date - 02/12/2024) (Collection Date & Time - 03/05/2024 09:08 AM) ? Value Reference Range ?HEMOGLOBIN A1c 6.5 H <5.7 - % ?Lab:CARDIO IQ(R) APOLI POPROTEIN A1 (99530) (Order Date - 02/12/2024) (Collection Date & Time - 03/05/2024 09:08 AM) ? Value Reference Range ?APOLIPOPROTEIN A1 122 >114 - mg/dL ?Lab:CARDIO IQ(R) APOLI POPROTEIN B (31617) (Order Date - 02/12/2024) (Collection Date & Time - 03/05/2024 09:08 AM) ? Value Reference Range ?APOLIPOPROTEIN B 71 <90 - mg/dL ?Lab:CARDIO IQ(R) HOMOC YSTEINE (13808) (Order Date - 02/12/2024) (Collection Date & Time - 03/05/2024 09:08 AM) ? Value Reference Range ?HOMOCYSTEINE 19.0 H <11.4 - umol/L ?Lab:CARDIO IQ(R) VITAM IN D, 25 HYDROXY (19750) (Order Date - 02/12/2024) (Collection Date & [...] FOR 30 DAYS.?LAB: CARDIO IQ(R) HEMOGLOBIN A1c (25569) (Ordered for 03/19/2024) ?LAB: CARDIO IQ(R) HOMOCYSTEINE (33678) (Ordered for 03/19/2024) ?LAB: CARDIO IQ(R) HS CRP (26414) (Ordered for 03/19/2024) ?LAB: CARDIO IQ(R) VITAMIN D, 25 HYDROXY (75577) (Ordered for 03/19/2024) ?LAB: CBC (INCLUDES DIFF/PLT) (2699) (Ordered for 03/19/2024) ?LAB: COMPREHENSIVE METABOLIC PANEL (51192) (Ordered for 03/19/2024) Notes: Lifestyle modification All [...] Tablet, Refills 1.?LAB: CARDIO IQ(R) HEMOGLOBIN A1c (34745) (Ordered for 03/19/2024) ?LAB: CARDIO IQ(R) HOMOCYSTEINE (22696) (Ordered for 03/19/2024) ?LAB: CARDIO IQ(R) HS CRP (96009) (Ordered for 03/19/2024) ?LAB: CARDIO IQ(R) VITAMIN D, 25 HYDROXY (32449) (Ordered for 03/19/2024) ?LAB: CBC (INCLUDES DIFF/PLT) (6399) (Ordered for 03/19/2024) ?LAB: COMPREHENSIVE METABOLIC PANEL (73798) (Ordered for 03/19/2024) Notes: Continue medication as directed Low-salt diet Weight management Regular exercise Yearly microalbumin? 4.??Primary insomnia?? Continue traZODone HCl Tablet, 50 MG, 1/2 tablet at bedtime as needed, Orally, Once a day.?LAB: CARDIO IQ(R) HEMOGLOBIN A1c (29492) (Ordered for 03/19/2024) ?LAB: CARDIO IQ(R) HOMOCYSTEINE (91433) (Ordered for 03/19/2024) ?LAB: CARDIO IQ(R) HS CRP (58861) (Ordered for 03/19/2024) ?LAB: CARDIO IQ(R) VITAMIN D, 25 HYDROXY (73123) (Ordered for 03/19/2024) ?LAB: CBC (INCLUDES DIFF/PLT) (7299) (Ordered for 03/19/2024) ?LAB: COMPREHENSIVE METABOLIC PANEL (32090) (Ordered for 03/19/2024) Notes: Sleeping well means [...] RQR * Preventive Medicine:?Last CPE: [facility]2021 [facility]; 01/18/23 DEXA: No Colonoscopy: Yes, approx. 2011 Endoscopy: No Covid Vac: Yes Flu Vac: Yes Shingles Vac: No PV: No. * Follow Up:??3 Weeks,3 Months (Reason: FU BP; FU 3M Labs) * Billing Information: * Visit Code:?? 38016 Office Visit, Est Pt., Level 4. * Procedure Codes:?? G8783 NORMAL BP READING DOC F/U NOT RQR. * Sign off status: Completed true * Provider:??Nichelle Salgado DNP Date:?? History and Physical Notes * HPI (History of Present Illness) Category Sub-Category Detail Notes Category Not es Patient Care Team Counter Top Maker: Dr. Glass Providers /Specialists: Vascular: Dr. Funes [...]
--- OUTSIDE RECORDS SUMMARY | 2024-08-18 09:16 | XMS_ITS ---
Author Organization [employer] Address [address] [place] [phone] Care Team Providers Care Saw Edge Fuser Circular Name Role Phone CHIO MENDENHALL Primary Care Provider Nichelle Salgado Unavailable [phone] ALLERGIES No Known Allergies REASON FOR VISIT [...] Tobacco use: nonsmoker Section Notes: Lives in [place], [place] with VITAL SIGNS Blood pressure systolic 136 mm Hg 04/10/20 24 Blood pressure diastolic 82 mm Hg 024 Heart Rate 75 /min 04/10/2024 Height 65 in 04/10/2024 Weight 183.4 lbs 04/10/2024 BMI 30.52 kg/m2 04/10/2024 Oximetry 98 % 04/10/2024 Height-cm 165.10 cm 04/10/2024 Weight-kg 83.19 kg 04/10/2024 Encounters Encounter Location Date Provider Diagnosis [address] [id number] 04/10/2024 Nichelle Salgado Seasonal allergies J30.2 ; [...] the bathroom. 04/10/2024 Other Will be in [place] for 2 months. He is driving down [...] use the bathroom. Other Will be in [place] f or 2 months. He is driving down with his Next Appt Details Follow Up: 2 Months, Reason: Has FU In June to Fu labs Progress Notes * MANDO YEMIDOB: 5 (79 yo M)Acc No.[id number]:04/10/2024 Progress Notes Patient:??YEMI GILMORE Provider:??Nichelle Salgado DNP :1945?Age:79 Y?Sex:Ma le Date:04/10/2024 Phone: Address:[address] [place] [address], [id number] Pcp:CHIO MENDENHALL Subjective: * Chief Complaints: * ?BP * HPI: ?Patient Care Team:?Splash Line Operator:??Dr. Glass.? Providers/Specialists: Vascular: Dr. Funes. ?Visit info:? Yemi presents in the office today to check his BP. Yemi also states that he is still having trouble sleeping. ?He is back to exercising with walking and using a rower. * ROS:?Reviewed. * Medical History:?? * Surgical History:??Rt. lung, Lobectomy (lung infection) 1970Angioplasty 1987, 1997 u0Xdqrxoe Cath (Quadruple Bypass) 2010Cataract Surgery * Hospitalization/Major Diagno stic Procedure:?? * Family History:??Father: dec eased 72 yrs, Bladder CA.??Mother: 82 yrs, Alzheimer's.??Sister: alive, Alzheimer's.??2 son(s) , 1 daughter(s) - healthy. .?? * Social History:?Tobacco Use:??Tobacco Use/Smoking??Tobacco use:??nonsmoker.?Drugs/Alcohol:??Do you smoke marijuana?: Denies. Do you drink alcohol?: Yes, Socially. ?Household:??Household??Marital status:??,??Number of adults in household:??2.?Miscellaneous:??Exercise: daily, for 30-60 minutes a day. Occupation: retired. ?Lives in [place] with . * Medications:??TakingPrevagen 10 MG [...] the bathroom.? 4.??Others?? Notes: Will be in [place] for 2 months. He is driving down with his ? * Procedure Codes:?? * Preventive Medicine:?Last CPE: 12/29/2021 @ [facility]; 01/18/23 DEXA: No Colonoscopy: Yes, approx. 2011 Endoscopy: No Covid Vac: Yes Flu Vac: Yes Shingles Vac: No PV: No. * Follow Up:??2 Months (Reason : Has FU In June to Fu labs) * Billing Information: * Visit Code:?? 86099 Office Visit, Est Pt., Level 4. * Procedure Codes:?? * Sign off status: Completed true * Provider:??Nichelle Salgado DNP Date:??03/2024 History and Physical Notes * HPI (History of Present Illness) Category Sub-Category Detail Notes Category Not es Patient Care Team Splash Line Operator: Dr. Glass Providers /Specialists: Vascular: Dr. Funes [...]
== END 2024-08-18 09:49 | disposition home or self-care (01) ==
PROVIDERS: PCP Physician Assistant Medical; Visit Provider Physician Assistant
DX: M25.552 Pain in left hip (principal)

== ENCOUNTER → 2024-08-18 09:03 | Outpatient (BNVA) | payer MEDICARE, SELFPAY | PROVIDERS: PCP Physician Assistant Medical; Visit Provider Physician Assistant | DX: M25.552 Pain in left hip (principal) | CPT/HCPCS: 99212 ==

== ENCOUNTER 2024-08-21 11:18 | Outpatient (REF) | payer MEDICARE, SELFPAY ==
[2024-08-21 14:14] LABS: MANUAL DIFF FLAG NO
[2024-08-21 14:26] LABS: Basophils Percent Auto 0.2 % (0-2); Eosinophils Absolute Auto 0.3 X10*3/uL (0.0-0.4); Eosinophils Percent Auto 2.2 % (0-4); Hematocrit 37.8 % (42.0-52.0); Imm Gran Abs Auto 0.09 X10*3/uL (0.00-0.03); Imm Gran Pct Auto 0.7 % (0.0-0.4); Lymphocytes Absolute Auto 1.8 X10*3/uL (1.2-4.9); Lymphocytes Percent Auto 14.1 % (20-40); Mean Corpuscular HGB Conc 34.4 g/dl (31.0-36.0); Mean Corpuscular Hemoglobin 31.6 pg (27.0-33.0); Mean Corpuscular Volume 91.7 fL (80.0-98.0); Mean Platelet Volume 8.8 fL (9.4-12.4); Monocytes Absolute Auto 0.6 X10*3/uL (0.1-1.2); Monocytes Percent Auto 4.7 % (2-11); Neutrophils Absolute Auto 9.7 x10*3/uL (2.0-8.3); Neutrophils Percent Auto 78.1 % (45-73); Platelet Count 339 X10*3/uL (160-400); Red Blood Count 4.12 X10*6/uL (4.60-5.80); Red Cell Distribution Width 14.2 % (11.0-16.0); White Blood Count 12.5 X10*3/uL (4.8-10.8)
[2024-08-21 14:32] LABS: Estimated Average Glucose 131 mg/dL; Hemoglobin A1C 149.6063 umol/L; Hemoglobin A1c % 6.2 % (<6.0); Total Hemoglobin (HGBA1C) 3368.8123 umol/L
[2024-08-21 14:34] LABS: Iron 49 mcg/dL (45-160); Percent Iron Saturation 25 % (15-50); Total Iron Binding Capacity 197 mcg/dL (228-428); Unsaturated Iron Binding 148 ug/dL
[2024-08-21 14:48] LABS: Ferritin 226 ng/mL (20-250)
[2024-08-21 15:04] LABS: Vitamin B12 769 pg/mL (200-900)
== END 2024-08-21 11:19 | disposition home or self-care (01) ==
LOC: HO.WFDLDS 11:18
PROVIDERS: Visit Provider Physician Assistant Medical
DX: E11.9 Type 2 diabetes mellitus without complications (principal); D64.9 Anemia, unspecified; Z91.89 Other specified personal risk factors, not elsewhere classified
CPT/HCPCS: 36415; 82607; 82728; 82746; 83036; 83540; 85025

== ENCOUNTER 2024-08-25 11:37 | Outpatient (AMB) | payer MEDICARE, SELFPAY ==
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
[2024-08-25 11:42] VITALS: BP 122/68; PULSE 104; TEMP 36.8; O2SAT 98; BMI 28.3
--- OUTSIDE RECORDS SUMMARY | 2024-08-25 14:00 | XMS_ITS | Patient Health Record ---
Author Organization [facility] [facility] [facility] Address [address] [place] [phone] Care Team Providers Care Enrolled Agent Name Role Phone CHIO MENDENHALL Primary Care Provider Nichelle Salgado Unavailable [phone] ALLERGIES No Known Allergies RESULTS Component Value Reference Range Notes CARDIO IQ(R) INSULIN (47736) Reviewed date:12/11/2023 08:57:10 AM Interpretation: Performing Lab:Z4M, [facility] [place], [address] [id number] Tom Serrano PhD,[facility] Notes/Report: FASTING: YES FASTING:YES NON-FASTING; NON-FASTING; NON-FASTING; NON-FASTING INSULIN 4.1 <18.5 uIU/mL COMPREHENSIVE METABOLIC PANE L (94661) Reviewed date:12/07/2023 08:37:23 AM Interpretation: Performing Lab:NL2, [facility] [address] Lewis Vela Notes/Report: NON-FASTING; NON-FASTING; NON-FASTING; NON-FASTING [...] 5 9-46 U/L CARDIO IQ(R) HS CRP (74694) Reviewed date:12/11/2023 09:00:50 AM Interpretation: Performing Lab:Adelina, [facility] [place] [address], [address], [id number] Tom Serrano PhD,[facility] Notes/Report: FASTING: YES FASTING:YES NON-FASTING; NON-FASTING; NON-FASTING; NON-FASTING HS CRP 3.5 <1.0 mg/L Reference Range: [...] inflammation. The AHA/CDC recommendations are based on Garcia TA, Stephanie GA, Devon RW, et al. Markers of inflammation and cardiovascular disease: application to clinical and public health practice: A statement for healthcare professionals from the Centers for Disease Control and Prevention and the [place] Heart Association. Circulation 2003; 107(3): 499-511. For [...] may be associated with infection and inflammation. Radha TA, Stephanie GA, Devon RW, et al. Markers of inflammation and cardiovascular disease: application to clinical and public health practice: A statement for healthcare professionals from the Centers for Disease Control and Prevention and the [place] Heart Association. Circulation 2003; 107(3): 499-511. CARDIO IQ(R) HOMOCYSTEINE (9 1733) Reviewed date:12/11/2023 09:01:01 AM Interpretation: Performing Lab:Z4, [facility] [address], [address], [id number] Tom Serrano PhD,[facility] Notes/Report: NON-FASTING; NON-FASTING; NON-FASTING; NON-FASTING FASTING:YES FASTING: YES HOMOCYSTEINE 14.9 <11.4 umol/L Homocysteine is increased by functional deficiency of folate or vitamin B12. Testing for methylmalonic acid differentiates between these deficiencies. Other causes of increased homocysteine include renal failure, folate antagonists such as methotrexate and phenytoin, and exposure to nitrous oxide. Selhub J, et al. [employer] Med. 1999;131(5):331-9. Homocysteine is increased by functional deficiency of folate or vitamin B12. Testing for methylmalonic acid differentiates between these deficiencies. Other causes of increased homocysteine include renal failure, folate antagonists such as methotrexate and phenytoin, and exposure to nitrous oxide. Selhub J, et al., [employer]. 1999;131(5):331-9. CARDIO IQ(R) HEMOGLOBIN A1c (89694) Reviewed date:12/11/2023 09:05:13 AM Interpretation: Performing Lab:Z4M, [facility], [address], [id number] Tom Serrano PhD,[facility] Notes/Report: NON-FASTING; NON-FASTING; NON-FASTING; NON-FASTING FASTING:YES FASTING: [...] change in test platforms from the Osuna Ld Teacher to the Vicenta chong c503 may have shifted HbA1c results compared to historical results. Based on laboratory validation testing conducted at [facility], the Vicenta platform relative to the Osuna platform had an average increase in HbA1c value of <=0.3%. This difference is within accepted variability established by the National Glycohemoglobin Standardization Program. Note that not all individuals will have had a shift in their results and direct comparisons between historical and current results for testing conducted on different platforms is not recommended. CARDIO IQ(R) LIPID PANEL (91 716) Reviewed date:03/13/2024 08:10:31 AM Interpretation: Performing Lab:Adelina, [facility] [place] [address], [address], [id number] Tom Serrano PhD,[facility] Notes/Report: FASTING FASTING:YES FASTING: YES CHOLESTEROL, TOTAL [...] Reid SS et al. MARIA DOLORES. 2013;310(19): 0988-7516 (http://education.MTX Connect.Votigo/faq/ULM115) LDL-C is now calculated using the Reid-Raphael calculation, which is a validated novel method providing better accuracy than the Friedewald equation in the estimation of LDL-C. Reid SS et al. MARIA DOLORES. 2013;310(19): 4170-5987 (http://education.MTX Connect.com/faq/VBP826) CHOL/HDLC RATIO 2.7 <5.0 calc NON HDL [...] a therapeutic option. COMPREHENSIVE METABOLIC PANE L (46624) Reviewed date:03/06/2024 09:19:48 AM Interpretation: Performing Lab:FADY2, [facility] [address] [place], [place] [id number] [place] Vela Notes/Report: FASTING FASTING:YES FASTING: YES [...] 6 9-46 U/L CARDIO IQ(R) HS CRP (30509) Reviewed date:03/13/2024 08:15:47 AM Interpretation: Performing Lab:Adelina, [employer] [address], [address], [id number] Tom Serrano PhD,[facility] Notes/Report: FASTING FASTING:YES FASTING: YES HS CRP [...] for Disease Control and Prevention and the [place] Heart Association. Circulation 2003; 107(3): 499-511. For [...] for Disease Control and Prevention and the [place] Heart Association. Circulation 2003; 107(3): 499-511. CARDIO IQ(R) HEMOGLOBIN A1c (32504) Reviewed date:03/13/2024 08:15:42 AM Interpretation: Performing Lab:Adelina [facility] [place] [address], [address], [id number] Tom Serrano PhD,[facility] Notes/Report: FASTING FASTING:YES FASTING: YES HEMOGLOBIN A1c [...] children. This test was performed on the [employer] chong c503 platform. Effective 07/03/2023, a change in test platforms from the Osuna Ld Teacher to the Vicenta chong c503 may have shifted HbA1c results compared to historical results. Based on laboratory validation testing conducted at [facility], the Vicenta platform relative to the Osuna [...] is not recommended. CARDIO IQ(R) APOLIPOPROTEIN A1 (25269) Reviewed date:03/13/2024 08:10:31 AM Interpretation: Performing Lab:Adelina [facility] [place] [address], [address], [id number] Tom Serrano PhD,[facility] Notes/Report: FASTING: YES FASTING:YES FASTING APOLIPOPROTEIN A1 122 >114 mg/dL Risk, Male: Optimal >= 115 mg/dL; High < 115 mg/dL; Risk, Female: Optimal >= 125 mg/dL; High <125 mg/dL; Cardiovascular event risk category cut points (optimal, high) are based on the AMORIS study Jf Duarte et al. J [employer]wnings Mechanic Med. 2004;255:188-205. CARDIO IQ(R) APOLIPOPROTEIN B (07239) Reviewed date:03/13/2024 08:10:31 AM Interpretation: Performing Lab:Adelina [facility] [place], [place] [address], [address], [id number] Tom Serrano PhD,[facility] Notes/Report: FASTING FASTING:YES FASTING: YES APOLIPOPROTEIN B [...] Reviewed date:03/13/2024 08:15:38 AM Interpretation: Performing Lab:Adelina [facility] [employer] [facility], [address], [id number] Tom Serrano PhD,[facility] Notes/Report: FASTING FASTING:YES FASTING: YES HOMOCYSTEINE 19.0 <11.4 umol/L Homocysteine is increased by functional deficiency of folate or vitamin B12. Testing for methylmalonic acid differentiates between these deficiencies. Other causes of increased homocysteine include renal failure, folate antagonists such as methotrexate and phenytoin, and exposure to nitrous oxide. Selhub J, et al. [employer] Med. 1999;131(5):331-9. Homocysteine is increased by functional deficiency of folate or vitamin B12. Testing for methylmalonic acid differentiates between these deficiencies. Other causes of increased homocysteine include renal failure, folate antagonists such as methotrexate and phenytoin, and exposure to nitrous oxide. Selhusushma J, et al., [employer] Med. 1999;131(5):331-9. CARDIO IQ(R) VITAMIN D, 25 H YDROXY (51771) Reviewed date:03/13/2024 08:10:46 AM Interpretation: Performing Lab:[facility]/[place] [id number]leon, [id number] Dilshad King M.D.,PhD Notes/Report: FASTING FASTING:YES FASTING: [...] ng/mL. For additional information, please refer to http://education.Crowd Cast/faq/XOB434 (This link is being provided for informational/ educational purposes only.) VITAMIN D, 25-OH, D3 31 This test was developed and its analytical performance characteristics have been determined by [facility] [place]. It has not been cleared or approved by the U.S. Food and Drug Administration. This assay has been validated pursuant to the CLIA regulations and is used for clinical purposes. VITAMIN D, 25-OH, D2 <4 This test was developed and its analytical performance characteristics have been determined by [facility] [place] [place]. It has not been cleared or [...] Tobacco use: nonsmoker Section Notes: [facility] [place] [facility] [place] [facility] [place] [facility] [place] [facility] [place] [facility] [place] [facility] [place] [facility] [place] [facility] [place] with PROBLEMS Problem Type ICD Code Onset Dates Problem Status W/U Status Risk SNOMED Code Notes Problem Mixed hyperlipidemia (E78.2) Active confirmed 013176669 Problem Primary insomnia (F51.01) Active confirmed 5005702 Problem Seasonal allergies (J30.2) Active confirmed Seasonal allergy (125995787) Problem Primary hypertension (I10) Active confirmed 24523857 Problem Pre-diabetes (R73.03) Active confirmed 868522384 Problem Arthritis (M19.90) Active confirmed 372 3001 Problem Cognitive dysfunction (F09) Active confirmed Cognitive dysfunction (641631294) VITAL SIGNS Heart Rate 75 /min 04/10/2024 Height-cm 165.10 cm 04/10/2024 Oximetry 98 % 04/10/2024 Blood pressure diastolic 82 mm Hg 04/10/2024 Weight-kg 83.19 kg 04/10/2024 Height 65 in 04/10/2024 Blood pressure systolic 136 mm Hg 04/10/2024 Weight 183.4 lbs 04/10/2024 BMI 30.52 kg/m2 04/10/2024 Encounters Encounter Location Date Provider Diagnosis [address] [id number] 09/14/[address] [id number] 07/09/2024 Nichelle Salgado [address] [id number] 09/28/2023 Nichelle Salgado Pre-diabetes R73.03 ; Primary insomnia F51.01 ; Mixed hyperlipidemia E78.2 ; Primary hypertension I10 ; Arthritis M19.90 ; Actinic keratosis L57.0 and Encounter to discuss test results Z71.[address] [id number] 10/10/2023 Nichelle Salgado Pre-diabetes R73.03 ; Primary insomnia F51.01 and Actinic keratosis L57.[address] [id number] 12/11/2023 Nichelle Damian Mixed hyperlipidemia E78.2 ; Pre-diabetes R73.03 ; Primary hypertension I10 and Toenail fungus B35.[address] [id number] 02/12/2024 Nichellelindsay Salgado Primary insomnia F51 .01 ; Annual physical exam Z00.00 ; Mixed hyperlipidemia E78.2 ; Pre-diabetes R73.03 ; Primary hypertension I10 ; Encounter for screening examination for mental health and behavioral disorders, unspecified Z13.30 ; Encounter for screening for other disorder Z13.89 ; Actinic keratoses L57.0 ; Cognitive dysfunction F09 and Seasonal allergies J30.[address] [id number] 03/19/2024 Nichellelindsay Salgado Mixed hyperlipidemia E78.2 ; Pre-diabetes R73.03 ; Primary hypertension I10 and Primary insomnia F51.[address] [id number] 04/10/2024 Nichelle Salgado Seasonal allergies J30.2 ; Primary hypertension I10 and Primary insomnia F51.[address] [id number] 09/17/2023 Nichelle Damian ASSESSMENTS Encounter Date Diagnosis [...] 5x/week. EKG: Sinus bradycardia Vent rate: 56BPM WI int: 205 ms QT/QTc 435/426 ms 03/19/2024 [...] or to get rid of a hangover (eye-box car checker)? N Total Score: 0 Scoring: Item responses [...] using liquid pepper that he bought on [employer] and states that it is working 03/19/2024 Other Total time spen t with patient 32 minutes which includes face to face visit, education and coordination of care. 04/10/2024 Other Will be in [facility] for 2 months. He is driving down with his PLAN OF TREATMENT Future Test Test Name Order Date COMPREHENSIVE METABOLIC PANEL (42323) CBC (INCLUDES DIFF/PLT) (6399) CARDIO IQ(R) HS CRP (38387) 03/19/2024 CARDIO IQ(R) HEMOGLOBIN A1c (85493) 03/01 CARDIO IQ(R) HOMOCYSTEINE (89392) 2023 CARDIO IQ(R) VITAMIN D, 25 HYDROXY (9173 5) 03/19/2024 Insurance Providers Payer Name Payer Address Payer Phone Subscriber Number Group Number Insured Name Patient Relationship to Insured Coverage Start Date Coverage End Date Medicare [address] [place] [address] [id number] LIBIA GILMORE Self - patient is the insured [facility] [employer] [address] [place] [address] [phone] [id number] LIBIA GILMORE Self - patient is the insured MEDICAL (GENERAL) HISTORY Medical History History ICD Code Hyperkeratosis Hyperlipidemia Impaired fasting glucose Primary hypertension Hernia Arthritis Quadruple Bypass Dentures (upper/lower) Surgical History Surgery Date(Month/Year) Rt. lung, Lobectomy (lung infection) 197 0 Angioplasty 1987, 1997 x2 Cardiac Cath (Quadruple Bypass) 2009 Cataract Surgery
--- OUTSIDE RECORDS SUMMARY | 2024-08-25 14:00 | XMS_ITS ---
Author Organization [facility] Address [address], [place] [id number] Care Team Providers Care Legal Office Administrator Name Role Phone CHIO MENDENHALL Primary Care Provider Nichelle Salgado [phone] REASON FOR VISIT f/u labs Encounters Encounter Location Date Provider Diagnosis [facility] [address], [place] [id number] 07/09/2024 Nichelle Salgado PLAN OF TREATMENT No Information Progress Notes * LIBIA GILMOREDOB: 5 (79 yo M)Acc No.[id number]:07/09/2024 Progress Notes Patient:??LIBIA GILMORE Provider:??Nicehlle Salgado DNP :1945?Age:79 Y?Sex:Ma le Date:07/09/2024 Phone: Address: [address] [place], [place] Pcp:CHIO MENDENHALL Subjective: * Chief Complaints: * ?1. F/u labs. * Medical History:?? Objective: Assessment: Plan: * Treatment: * Billing Information: * Visit Code:?? * Procedure Codes:?? * Sign off status: Pending * Provider:??Nichelle Salgado DNP Date:??03/2025
--- OUTSIDE RECORDS SUMMARY | 2024-08-25 14:00 | XMS_ITS ---
Author Organization [employer] [facility] Address [address] [place] [phone] Care Team Providers Care Mitigation Supervisor Name Role Phone CHIO MENDENHALL Primary Care Provider [phone] Nichelle Salgado Unavailable [phone] ALLERGIES No Known Allergies REASON FOR VISIT [...] Tobacco use: nonsmoker Section Notes: Lives in [place], [place] with VITAL SIGNS Blood pressure systolic 134 mm Hg 03/19/20 24 Blood pressure diastolic 62 mm Hg 024 Heart Rate 67 /min 03/19/2024 Height 65 in 03/19/2024 Weight 183.4 lbs 03/19/2024 BMI 30.52 kg/m2 03/19/2024 Oximetry 97 % 03/19/2024 Height-cm 165.10 cm 03/19/2024 Weight-kg 83.19 kg 03/19/2024 Encounters Encounter Location Date Provider Diagnosis [address] [id number] 03/19/2024 Nichelle Salgado Mixed hyperlipidemia E78.2 ; [...] Test Name Order Date COMPREHENSIVE METABOLIC PANEL (76823) CBC (INCLUDES DIFF/PLT) (6399) CARDIO IQ(R) HS CRP (41586) 03/19/2024 CARDIO IQ(R) HEMOGLOBIN A1c (90764) 03/01 CARDIO IQ(R) HOMOCYSTEINE (65240) 2023 CARDIO IQ(R) VITAMIN D, 25 HYDROXY (9173 5) 03/19/2024 Next Appt Details Follow Up: 3 Weeks,3 Months, Reason: FU BP; FU 3M Labs Progress Notes * YEMI GILMOREDOB: 5 (79 yo M)Acc No.[id number]:03/19/2024 Progress Notes Patient:??MANDO YEMI Provider:??Nichelle Salgado DNP :1945?Age:79 Y?Sex:Ma le Date:03/19/2024 Phone: Address:[address] [place] [address], [id number] Pcp:CHIO MENDENHALL Subjective: * Chief Complaints: * ?F/u labs * HPI: ?Patient Care Team:?Merchandising Consultant:??Dr. Glass.? Providers/Specialists: Vascular: Dr. Funes. ?Visit info:? [...] lung, Lobectomy (lung infection) 1970Angioplasty 1987, 1997 v4Osjqhlv Cath (Quadruple Bypass) 2010Cataract Surgery * Hospitalization/Major Diagno stic Procedure:?? * Family History:??Father: dec eased 72 yrs, Bladder CA.??Mother: 82 yrs, Alzheimer's.??Sister: alive, Alzheimer's.??2 son(s) , 1 daughter(s) - healthy. .?? * Social History:?Tobacco Use:??Tobacco Use/Smoking??Tobacco use:??nonsmoker.?Drugs/Alcohol:??Do you smoke marijuana?: Denies. Do you drink alcohol?: Yes, Socially. ?Household:??Household??Marital status:??,??Number of adults in household:??2.?Miscellaneous:??Exercise: daily, for 30-60 minutes a day. Occupation: retired. ?Lives in [place], [place] with . * Medications:??TakingPrevagen 10 MG [...] * ?Past Orders: ?Lab:CARDIO IQ(R) LIPID PANEL (25468) (Order Date - 02/12/2024) (Collection Date & Time - 03/05/2024 09:08 AM) ? Value Reference Range ?TRIGLYCERIDES 63 <150 - mg/dL ?CHOLESTEROL, TOTAL 134 <200 - mg/dL ?HDL CHOLESTEROL 49 >39 - mg/dL ?LDL-CHOLESTEROL 71 <100 - mg/dL (calc) ?CHOL/HDLC RATIO 2.7 <5.0 - calc ?NON HDL CHOLESTEROL 85 <130 - mg/dL (calc) ?Lab:COMPREHENSIVE META BOLIC PANEL (79711) (Order Date - 02/12/2024) (Collection Date & [...] - mL/min/1.73m2 ?Lab:CARDIO IQ(R) HS CR P (98589) (Order Date - 02/12/2024) (Collection Date & Time - 03/05/2024 09:08 AM) ? Value Reference Range ?HS CRP 1.2 H <1.0 - mg/L ?Lab:CARDIO IQ(R) HEMOG LOBIN A1c (85828) (Order Date - 02/12/2024) (Collection Date & Time - 03/05/2024 09:08 AM) ? Value Reference Range ?HEMOGLOBIN A1c 6.5 H <5.7 - % ?Lab:CARDIO IQ(R) APOLI POPROTEIN A1 (43152) (Order Date - 02/12/2024) (Collection Date & Time - 03/05/2024 09:08 AM) ? Value Reference Range ?APOLIPOPROTEIN A1 122 >114 - mg/dL ?Lab:CARDIO IQ(R) APOLI POPROTEIN B (22704) (Order Date - 02/12/2024) (Collection Date & Time - 03/05/2024 09:08 AM) ? Value Reference Range ?APOLIPOPROTEIN B 71 <90 - mg/dL ?Lab:CARDIO IQ(R) HOMOC YSTEINE (91772) (Order Date - 02/12/2024) (Collection Date & Time - 03/05/2024 09:08 AM) ? Value Reference Range ?HOMOCYSTEINE 19.0 H <11.4 - umol/L ?Lab:CARDIO IQ(R) VITAM IN D, 25 HYDROXY (97243) (Order Date - 02/12/2024) (Collection Date & [...] FOR 30 DAYS.?LAB: CARDIO IQ(R) HEMOGLOBIN A1c (79186) (Ordered for 03/19/2024) ?LAB: CARDIO IQ(R) HOMOCYSTEINE (26730) (Ordered for 03/19/2024) ?LAB: CARDIO IQ(R) HS CRP (73295) (Ordered for 03/19/2024) ?LAB: CARDIO IQ(R) VITAMIN D, 25 HYDROXY (62408) (Ordered for 03/19/2024) ?LAB: CBC (INCLUDES DIFF/PLT) (0699) (Ordered for 03/19/2024) ?LAB: COMPREHENSIVE METABOLIC PANEL (57480) (Ordered for 03/19/2024) Notes: Lifestyle modification All [...] Tablet, Refills 1.?LAB: CARDIO IQ(R) HEMOGLOBIN A1c (38562) (Ordered for 03/19/2024) ?LAB: CARDIO IQ(R) HOMOCYSTEINE (19368) (Ordered for 03/19/2024) ?LAB: CARDIO IQ(R) HS CRP (38707) (Ordered for 03/19/2024) ?LAB: CARDIO IQ(R) VITAMIN D, 25 HYDROXY (04458) (Ordered for 03/19/2024) ?LAB: CBC (INCLUDES DIFF/PLT) (6399) (Ordered for 03/19/2024) ?LAB: COMPREHENSIVE METABOLIC PANEL (16844) (Ordered for 03/19/2024) Notes: Continue medication as directed Low-salt diet Weight management Regular exercise Yearly microalbumin? 4.??Primary insomnia?? Continue traZODone HCl Tablet, 50 MG, 1/2 tablet at bedtime as needed, Orally, Once a day.?LAB: CARDIO IQ(R) HEMOGLOBIN A1c (51564) (Ordered for 03/19/2024) ?LAB: CARDIO IQ(R) HOMOCYSTEINE (06896) (Ordered for 03/19/2024) ?LAB: CARDIO IQ(R) HS CRP (85581) (Ordered for 03/19/2024) ?LAB: CARDIO IQ(R) VITAMIN D, 25 HYDROXY (54485) (Ordered for 03/19/2024) ?LAB: CBC (INCLUDES DIFF/PLT) (0999) (Ordered for 03/19/2024) ?LAB: COMPREHENSIVE METABOLIC PANEL (96487) (Ordered for 03/19/2024) Notes: Sleeping well means [...] RQR * Preventive Medicine:?Last CPE: 12/29/2021 @ [facility]; 01/18/23 DEXA: No Colonoscopy: Yes, approx. 2011 Endoscopy: No Covid Vac: Yes Flu Vac: Yes Shingles Vac: No PV: No. * Follow Up:??3 Weeks,3 Months (Reason: FU BP; FU 3M Labs) * Billing Information: * Visit Code:?? 47818 Office Visit, Est Pt., Level 4. * Procedure Codes:?? G8783 NORMAL BP READING DOC F/U NOT RQR. * Sign off status: Completed true * Provider:??Nichelle Salgado DNP Date:?? History and Physical Notes * HPI (History of Present Illness) Category Sub-Category Detail Notes Category Not es Patient Care Team Merchandising Consultant: Dr. Glass Providers /Specialists: Vascular: Dr. Funes [...]
--- OUTSIDE RECORDS SUMMARY | 2024-08-25 14:00 | XMS_ITS ---
Author Organization [facility] Address [address] [place] [id number] Care Team Providers Care In School Suspension Coordinator Name Role Phone CHIO MENDENHALL Primary Care Provider [phone] Nichelle Salgado Unavailable [phone] ALLERGIES No Known Allergies REASON FOR VISIT [...] Tobacco use: nonsmoker Section Notes: Lives in [place], [place] with VITAL SIGNS Blood pressure systolic 136 mm Hg 04/10/20 24 Blood pressure diastolic 82 mm Hg 024 Heart Rate 75 /min 04/10/2024 Height 65 in 04/10/2024 Weight 183.4 lbs 04/10/2024 BMI 30.52 kg/m2 04/10/2024 Oximetry 98 % 04/10/2024 Height-cm 165.10 cm 04/10/2024 Weight-kg 83.19 kg 04/10/2024 Encounters Encounter Location Date Provider Diagnosis [address] [id number] 04/10/2024 Nichelle Salgado Seasonal allergies J30.2 ; [...] the bathroom. 04/10/2024 Other Will be in [place] for 2 months. He is driving down [...] use the bathroom. Other Will be in [place] f or 2 months. He is driving down with his Next Appt Details Follow Up: 2 Months, Reason: Has FU In June to Fu labs Progress Notes * MANDO YEMIDOB: 5 (79 yo M)Acc No.[id number]:04/10/2024 Progress Notes Patient:??YEMI GILMORE Provider:??Nichelle Salgado DNP :1945?Age:79 Y?Sex:Ma le Date:04/10/2024 Phone: Address:[address] [place] [address], [id number] Pcp:CHIO MENDENHALL Subjective: * Chief Complaints: * ?BP * HPI: ?Patient Care Team:?Platinum Smith:??Dr. Glass.? Providers/Specialists: Vascular: Dr. Funes. ?Visit info:? Yemi presents in the office today to check his BP. Yemi also states that he is still having trouble sleeping. ?He is back to exercising with walking and using a rower. * ROS:?Reviewed. * Medical History:?? * Surgical History:??Rt. lung, Lobectomy (lung infection) 1970Angioplasty 1987, 1997 u3Jjroijg Cath (Quadruple Bypass) 2010Cataract Surgery * Hospitalization/Major Diagno stic Procedure:?? * Family History:??Father: dec eased 72 yrs, Bladder CA.??Mother: 82 yrs, Alzheimer's.??Sister: alive, Alzheimer's.??2 son(s) , 1 daughter(s) - healthy. .?? * Social History:?Tobacco Use:??Tobacco Use/Smoking??Tobacco use:??nonsmoker.?Drugs/Alcohol:??Do you smoke marijuana?: Denies. Do you drink alcohol?: Yes, Socially. ?Household:??Household??Marital status:??,??Number of adults in household:??2.?Miscellaneous:??Exercise: daily, for 30-60 minutes a day. Occupation: retired. ?Lives in [place], [place] with . * Medications:??TakingPrevagen 10 MG [...] the bathroom.? 4.??Others?? Notes: Will be in [place] for 2 months. He is driving down with his ? * Procedure Codes:?? * Preventive Medicine:?Last CPE: 12/29/2021 @ [facility]; 01/18/23 DEXA: No Colonoscopy: Yes, approx. 2011 Endoscopy: No Covid Vac: Yes Flu Vac: Yes Shingles Vac: No PV: No. * Follow Up:??2 Months (Reason : Has FU In June to Fu labs) * Billing Information: * Visit Code:?? 31129 Office Visit, Est Pt., Level 4. * Procedure Codes:?? * Sign off status: Completed true * Provider:??Nichelle Salgado DNP Date:??03/2024 History and Physical Notes * HPI (History of Present Illness) Category Sub-Category Detail Notes Category Not es Patient Care Team Platinum Smith: Dr. Glass Providers /Specialists: Vascular: Dr. Funes [...]
--- OUTSIDE RECORDS SUMMARY | 2024-08-25 14:00 | XMS_ITS | Patient Health Record ---
Author Organization [facility] Address [address] [facility] [address] [place] [address] Care Team Providers Care Shake Feeder Name Role Phone Matilde Mata Primary Care [...] [place] [address] [place] [phone] [id number] Yemi Cantu Self - patient is the insured [employer] [place] and [facility] [address] [place] [phone] [id number] Yemi Cantu Self - patient is the [...] hypertension I10 Atherosclerotic heart diseas e of [place] coronary artery without angina pectoris I25.10 Benign prostatic hyperplasia (N40.0) 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
== END 2024-08-25 12:18 | disposition home or self-care (01) ==
LOC: HO.HMCFM 11:37
PROVIDERS: PCP Physician Assistant Medical; Visit Provider Physician Assistant Medical
DX: M54.50 Low back pain, unspecified (principal); M79.605 Pain in left leg; R20.0 Anesthesia of skin; Z04.3 Encounter for examination and observation following other accident; V89.2XXA Person injured in unspecified motor-vehicle accident, traffic, initial encounter; R29.898 Other symptoms and signs involving the musculoskeletal system; I70.0 Atherosclerosis of aorta; D64.9 Anemia, unspecified

== ENCOUNTER → 2024-08-25 11:37 | Outpatient (BNVA) | payer MEDICARE, SELFPAY | PROVIDERS: PCP Physician Assistant Medical; Visit Provider Physician Assistant Medical | DX: R29.898 Other symptoms and signs involving the musculoskeletal system (principal); M54.50 Low back pain, unspecified; M79.605 Pain in left leg; R20.0 Anesthesia of skin; I70.0 Atherosclerosis of aorta; D64.9 Anemia, unspecified; I10 Essential (primary) hypertension; E78.5 Hyperlipidemia, unspecified; I73.9 Peripheral vascular disease, unspecified; I25.10 Atherosclerotic heart disease of native coronary artery without angina pectoris | CPT/HCPCS: 99212 ==

== ENCOUNTER 2024-09-15 09:54 | Outpatient (REF) | payer MEDICARE, SELFPAY ==
--- NOTE | ~2024-09-15 | US_ITS ---
EXAMINATION: US ABDOMEN ANEURYSM SCREENING HISTORY: I70.0 - Atherosclerosis of aorta TECHNIQUE: Ultrasound of the abdominal aorta was performed with color flow and spectral imaging. COMPARISON: There are no prior studies for comparison. FINDINGS: Real-time grayscale ultrasound imaging was performed and reviewed. There is atherosclerotic calcification. Proximal abdominal aorta measures 2.8 x 2.8 cm Mid abdominal aorta measures 2.1 x 2.1 cm Distal abdominal aorta measures 2.3 x 2.4cm. Left proximal iliac artery measures 1.2 x 1.2 cm. Right proximal iliac artery measures 1.8 x 1.9cm. US/US abdominal aortic aneurysm IMPRESSION: No evidence of an abdominal aortic aneurysm. Mild dilatation of the right common iliac artery. Electronically signed by: Rober Chapa MD 09/15/2024 10:25 AM EDT
--- OUTSIDE RECORDS SUMMARY | 2024-09-15 10:14 | XMS_ITS | Patient Health Record ---
Author Organization [facility] Address [address] [facility] [address] [place] [address] Care Team Providers Care Manager Division Name Role Phone Matilde Mata Primary Care [...] [place] [address] [place] [phone] [id number] Yemi Cantu Self - patient is the insured [employer] and [facility] [address] [place] [phone] [id number] Yemi Cantu Self - patient is the [...] hypertension I10 Atherosclerotic heart diseas e of [place] coronary artery without angina pectoris I25.10 Benign prostatic hyperplasia (N40.0) 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
== END 2024-09-15 09:55 | disposition home or self-care (01) ==
LOC: HO.HMGCX 09:54
PROVIDERS: PCP Physician Assistant Medical; Visit Provider Physician Assistant Medical
DX: I70.0 Atherosclerosis of aorta (principal)
CPT/HCPCS: 76706

== ENCOUNTER → 2024-09-15 09:57 | Outpatient (BNV) | payer MEDICARE, SELFPAY | PROVIDERS: PCP Physician Assistant Medical; Visit Provider Radiology Diagnostic Radiology | DX: I70.0 Atherosclerosis of aorta (principal) | CPT/HCPCS: 76706 ==

== ENCOUNTER 2024-10-06 09:04 | Outpatient (AMB) | payer MEDICARE, SELFPAY ==
--- NOTE | 2024-10-06 09:04 | MHC.PC.OV ---
Vital Signs 10/06/24 09:07 Height 5 ft 6 in Weight 167 lb 2 oz BMI 27.0 BP 122/82 Blood Pressure Location Lt brachial Position Sitting Respiration 13 Pulse 91 Pulse Source Pulse Oximeter Temp 98.0 F Temp Source Temporal Artery Scan Pulse Oximetry (%) 96 Oxygen Delivery Method Room Air Intake Visit Reasons: 6 Weeks med fu Intake Note: Yemi presents in the office today for a 6 month follow up. Allergies No Known Allergies Allergy (Verified 10/06/24 09:06) Tobacco use date assessed: 10/06/24 Dental Screening Dental Screen Date: 10/06/24 Did you have a dental visit in the last 12 months?: No Did you have a dental problem in the last 6 months where you did not have access to dental care?: No Was dental information given to patient?: Patient has dentist HPI HPI Comments History of Present Illness Details This is a 79-year-old male with a past medical history of hypertension, hyperlipidemia, peripheral arterial disease and coronary artery disease presenting for follow up. He is here with his and son. Peripheral arterial disease-bilateral lower extremities. Followed by [facility] vascular surgery. Patient has a right carotid artery occlusion, and the left carotid artery also has stenosis around 50%. They are monitoring this. He is on ASA 81 mg and rosuvastatin which was increase to 10 mg to target LDL less than 70. 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 We are sending these results to his vascular office. Coronary artery disease-CABG x 4 some [address] Candelario. Released from cardiology follow up. Denies chest pain, palpitations, shortness of breath, dizziness and leg swelling. HTN-treated with valsartan 160 mg daily. Hyperlipidiemia-treated with rosuvastatin 10 mg daily. Emphysema-never smoked but had a lot of second hand smoke exposure. Prediabetes-hemoglobin A1c 6.2% 08/21/2024. Anemia-taking ferrous sulfate 325 mg every other day. Hemoglobin trended down to 13 from July 18 to August 21. White blood cell count was normal in June but elevated at 12,500 in July, but he was on prednisone. Iron was low normal. Ferritin normal. Normal B12, renal function, folate and thyroid function and liver function. Denies blood in his stools, abdominal pain, diarrhea. His initial weight on 07/17/2024 was 162 lb, and he is 167 lb today. It has fluctuated over the past few months between 162-180 lb. No recent colonoscopy. Patient says routine screening discontinued due to his age. States he is is up-to-date with RSV, COVID, flu and pneumonia vaccine. He has declined PSA testing. Back/ leg pain previously evaluated has resolved. ROS: Constitutional: No unexplained weight loss, fever, chills, fatigue or night sweats. Eyes: No vision changes, blurry vision, double vision, eye pain, eye redness, eye discharge. ENT: No hearing loss, sneezing, congestion, runny nose or sore throat. Respiratory: No shortness of breath, cough or sputum production. Cardiovascular: No chest pain, chest pressure or chest discomfort. No palpitations or pedal edema. Gastrointestinal: No anorexia, nausea, vomiting or diarrhea. No abdominal pain or blood in stool. Neurologic: No headache, dizziness, syncope, unilateral weakness, ataxia, numbness or tingling in the extremities. Musculoskeletal: No muscle pain, back pain, joint pain or swelling. Hematologic/Lymphatics: No bleeding or bruising. No painful lymph nodes. Skin: No rash Physical exam: Constitutional: Alert, in no distress. Neck: Supple, Full range of motion. No lymphadenopathy. No palpable thyroid masses. Respiratory: Clear to auscultation. Cardiovascular: S1 S2 regular. No murmurs. Gastrointestinal: Abdomen soft, non-tender, non-distended. Normal bowel sounds. No palpable masses. Neurologic: No focal neurological deficits. Extremities: Warm and well perfused. No clubbing, cyanosis or edema. Psychiatric: Normal mood and affect [facility] Medical History (Updated 09/26/24 @ 16:00 by RADAMES Giordano) Aneurysm of right common iliac artery Prediabetes Left leg numbness Left leg weakness Calcification of abdominal aorta IFG (impaired fasting glucose) Mild anemia Irregular heart rhythm Coronary artery disease PAC (premature atrial contraction) Essential hypertension Pure hypercholesterolemia PAD (peripheral artery disease) Surgical History (Updated 07/17/24 @ 13:13 by RADAMES Giordano) S/P partial lobectomy of lung S/P CABG x 4 Social History (Updated 10/06/24 @ 09:07 by VIOLET Tony Housing: House Alcohol intake: never Patient Tobacco Use Status: Never used Tobacco e-Cigarette/Vaping Use: Never Used Second Hand Smoke Exposure: No service: No Current occupational status: retired Current occupational exposures/hazards: No Cognitive needs: No Hearing needs: Yes (hearing aids) Vision needs: No Questionnaire Thrive Questionnaire Date Thrive assessed: 07/17/24 AUDIT C Alcohol Use Questionnaire (AUDIT-C) 1. How often do you have a drink containing alcohol?: Never Total Score: 0 EDDIE-7 AMB Questionnaire EDDIE-7 Date EDDIE - 7 assessed: 07/17/24 Source: Developed by Drs. Rober Garrido, Matilda Martin, Tyree Lorenzo and colleagues, with an educational madison from [employer]. Physical exam (Primary Care) Vital Signs: Last Vital Signs Temp 98.0 F 10/06/24 09:07 Pulse 91 10/06/24 09:07 Resp 13 10/06/24 09:07 BP 122/82 10/06/24 09:07 Pulse Ox 96 10/06/24 09:07 Oxygen Delivery Method Room Air 10/06/24 09:07 BMI result Body Mass Index 27.0 Tobacco/Smoking Status: Tobacco use Status Tobacco use date assessed 10/06/24 10/06/24 09:11 Patient Tobacco Use Status Never used Tobacco 10/06/24 09:07 e-Cigarette/Vaping Use Never Used 10/06/24 09:07 Thrive Assessment: Date of Thrive Assessment Date Thrive assessed 07/17/24 10/06/24 09:05 Coding Level of Care Code Est Pt Level 4 (65655) Complex EM visit Add On G2211 Diagnoses Essential hypertension I10 Pure hypercholesterolemia E78.00 PAD (peripheral artery disease) I73.9 Coronary artery disease I25.10 Aneurysm of right common iliac artery I72.3 Prediabetes R73.03 Mild anemia D64.9 Assessment & Plan Assessment & Plan (1) Essential hypertension: Code(s): I10 - Essential (primary) hypertension Category: Medical Plan: Well-controlled. Continue valsartan and low-sodium diet. (2) Pure hypercholesterolemia: Code(s): E78.00 - Pure hypercholesterolemia, unspecified Category: Medical (3) PAD (peripheral artery disease): Code(s): I73.9 - Peripheral vascular disease, unspecified Category: Medical Plan: Continue management per [facility] vascular. LDL goal less than 70. (4) Coronary artery disease: Code(s): I25.10 - Atherosclerotic heart disease of [place] coronary artery without angina pectoris Category: Medical Plan: LDL goal less than 70. Continue rosuvastatin 10 mg daily. Continue baby aspirin. Blood pressure is well-controlled on valsartan. Followed by Cardiology. (5) Aneurysm of right common iliac artery: Code(s): I72.3 - Aneurysm of iliac artery Category: Medical Plan: This will likely require monitoring and results are faxed to [facility] vascular. (6) Prediabetes: Code(s): R73.03 - Prediabetes Category: Medical Plan: Recommended low carbohydrate, low sugar diet. Monitor hemoglobin A1c. (7) Mild anemia: Code(s): D64.9 - Anemia, unspecified Category: Medical Plan: Continue iron supplementation and recheck labs today. Consider FOBT and referral to Gastroenterology if anemia worsens. Increase iron rich foods in diet. Plan Routine follow up in 4 months
[2024-10-06 09:07] VITALS: BP 122/82; PULSE 91; RESP 13; TEMP 36.7; O2SAT 96; BMI 27.0
== END 2024-10-06 09:44 | disposition home or self-care (01) ==
LOC: HO.HMCFM 09:04
PROVIDERS: PCP Physician Assistant Medical; Visit Provider Physician Assistant Medical
DX: I10 Essential (primary) hypertension (principal); E78.00 Pure hypercholesterolemia, unspecified; I73.9 Peripheral vascular disease, unspecified; I25.10 Atherosclerotic heart disease of native coronary artery without angina pectoris; I72.3 Aneurysm of iliac artery; R73.03 Prediabetes; D64.9 Anemia, unspecified

== ENCOUNTER → 2024-10-06 09:04 | Outpatient (BNVA) | payer MEDICARE, SELFPAY | PROVIDERS: PCP Physician Assistant Medical; Visit Provider Physician Assistant Medical | DX: Z13.89 Encounter for screening for other disorder (principal) | CPT/HCPCS: 99212 ==

== ENCOUNTER 2024-10-06 09:49 | Outpatient (REF) | payer MEDICARE, SELFPAY ==
[2024-10-06 11:23] LABS: MANUAL DIFF FLAG NO
[2024-10-06 11:27] LABS: Basophils Absolute Auto 0.1 X10*3/uL (0.0-0.2); Basophils Percent Auto 0.8 % (0-2); Eosinophils Absolute Auto 0.2 X10*3/uL (0.0-0.4); Eosinophils Percent Auto 2.8 % (0-4); Hematocrit 37.2 % (42.0-52.0); Hemoglobin 12.5 g/dl (14.0-18.0); Imm Gran Abs Auto 0.04 X10*3/uL (0.00-0.03); Imm Gran Pct Auto 0.5 % (0.0-0.4); Lymphocytes Absolute Auto 1.8 X10*3/uL (1.2-4.9); Lymphocytes Percent Auto 20.2 % (20-40); Mean Corpuscular HGB Conc 33.6 g/dl (31.0-36.0); Mean Corpuscular Hemoglobin 31.6 pg (27.0-33.0); Mean Corpuscular Volume 93.9 fL (80.0-98.0); Mean Platelet Volume 8.4 fL (9.4-12.4); Monocytes Absolute Auto 0.6 X10*3/uL (0.1-1.2); Monocytes Percent Auto 7.3 % (2-11); Neutrophils Absolute Auto 5.9 x10*3/uL (2.0-8.3); Neutrophils Percent Auto 68.4 % (45-73); Platelet Count 333 X10*3/uL (160-400); Red Blood Count 3.96 X10*6/uL (4.60-5.80); Red Cell Distribution Width 13.3 % (11.0-16.0); White Blood Count 8.7 X10*3/uL (4.8-10.8)
[2024-10-06 11:46] LABS: Iron 127 mcg/dL (45-160); Percent Iron Saturation 54 % (15-50); Total Iron Binding Capacity 234 mcg/dL (228-428); Unsaturated Iron Binding 107 ug/dL
== END 2024-10-06 09:50 | disposition home or self-care (01) ==
LOC: HO.WFDLDS 09:49
PROVIDERS: Visit Provider Physician Assistant Medical
DX: I10 Essential (primary) hypertension (principal); I25.10 Atherosclerotic heart disease of native coronary artery without angina pectoris; E78.00 Pure hypercholesterolemia, unspecified; J43.9 Emphysema, unspecified; R73.03 Prediabetes; D64.9 Anemia, unspecified; I73.9 Peripheral vascular disease, unspecified; I72.3 Aneurysm of iliac artery; Z79.82 Long term (current) use of aspirin; Z79.899 Other long term (current) drug therapy; Z95.1 Presence of aortocoronary bypass graft
CPT/HCPCS: 36415; 83540; 85025; 99212

== ENCOUNTER 2025-02-12 09:45 | Outpatient (AMB) | payer MEDICARE, SELFPAY ==
--- NOTE | 2025-02-12 09:51 | MHC.PC.OV ---
Vital Signs 02/12/25 09:59 Height 5 ft 6 in Weight 164 lb 8 oz BMI 26.5 BP 116/64 Blood Pressure Location Lt brachial Position Sitting Respiration 13 Pulse 83 Pulse Source Pulse Oximeter Temp 97.8 F Temp Source Temporal Artery Scan Pulse Oximetry (%) 97 Oxygen Delivery Method Room Air Intake Visit Reasons: med follow up Intake Note: Yemi presents in the office today for a medication follow up. Patient has stopped Iron, but it has caused ongoing constipation. Having excessive sweats everynight. Allergies No Known Allergies Allergy (Verified 02/12/25 09:56) Medication List - Last Reconciled 02/12/25 by RADAMES Giordano [Allerclear once daily] aspirin (Adult Aspirin Regimen) 81 mg PO DAILY cyclobenzaprine 5 mg PO BEDTIME PRN rosuvastatin 10 mg PO DAILY valsartan 160 mg PO DAILY Tobacco use date assessed: 02/12/25 Dental Screening Dental Screen Date: 02/12/25 Did you have a dental visit in the last 12 months?: Yes Did you have a dental problem in the last 6 months where you did not have access to dental care?: No Was dental information given to patient?: Patient has dentist HPI HPI Comments History of Present Illness Details This is a 79-year-old male with a past medical history of hypertension, hyperlipidemia, peripheral arterial disease and coronary artery disease presenting for follow up. Patient was started on ferrous sulfate and instructed to repeat labs for anemia. Lab orders are still pending. He stopped taking the iron pill a couple of months ago because he says after he started taking it he experienced constipation and night sweats. Even though he stopped taking it he continues to have these symptoms including nightly sweats. He wakes up drenched. His weight is down 3 lb from September 2024, but he is up 2 lb from June 2024. He has fluctuated between 162 and 180 lb over the past 6 months. He was referred to Gastroenterology, and he scheduled the appointment 01/07/2025, but he says he ended up cancelling it. He is taking an aczs-[id number] supplement for constipation which helps, but he has to take it every day. Denies black or bloody stools. Sometimes stools are skinny and smaller and sometimes they appear more normal. Denies abdominal pain, appetite change, nausea, vomiting. No recent colonoscopy. FOBT was ordered but not completed by patient. Peripheral arterial disease-bilateral lower extremities. Followed by [facility] vascular surgery. Patient has a right carotid artery occlusion, and the left carotid artery also has stenosis around 50%. They are monitoring this. He is on ASA 81 mg and rosuvastatin which was increased to 10 mg to target LDL less than 70. 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 Coronary artery disease-CABG x [address] some [address] Candelario. Released from cardiology follow up. Denies chest pain, palpitations, shortness of breath, dizziness and leg swelling. HTN-treated with valsartan 160 mg daily. Hyperlipidiemia-treated with rosuvastatin 10 mg daily. Emphysema-never smoked but had a lot of second hand smoke exposure. Prediabetes-hemoglobin A1c 6.2% 08/21/2024. States he is is up-to-date with RSV, COVID, flu and pneumonia vaccine. ROS: Constitutional: No unexplained weight loss, fever, chills, increase fatigue . Endorses night sweats Eyes: No vision changes, blurry vision, double vision, eye pain, eye redness, eye discharge. ENT: No hearing loss, sneezing, congestion, runny nose or sore throat. Respiratory: No shortness of breath, cough or sputum production. Cardiovascular: No chest pain, chest pressure or chest discomfort. No palpitations or pedal edema. Gastrointestinal: No anorexia, nausea, vomiting or diarrhea. No abdominal pain or blood in stool. +change in stools and constipation. Neurologic: No headache, dizziness, syncope, unilateral weakness, ataxia, numbness or tingling in the extremities. Musculoskeletal: No muscle pain, back pain, joint pain or swelling. Hematologic/Lymphatics: No bleeding or bruising. No painful lymph nodes. Skin: No rash Physical exam: Constitutional: Alert, in no distress. Eyes: PERRL, EOMI, no conjunctival pallor Mouth/throat: No lesions, erythema, pallor Neck: Supple, Full range of motion. No lymphadenopathy. No palpable thyroid masses or neck masses. Respiratory: Clear to auscultation. Cardiovascular: S1 S2 regular. No murmurs. Gastrointestinal: Abdomen soft, non-tender, non-distended. Normal bowel sounds in 4 quadrants. No palpable masses. No rebound or guarding. Neurologic: No focal neurological deficits. Extremities: Warm and well perfused. No clubbing, cyanosis or edema. Psychiatric: Normal mood and affect [facility] Medical History (Updated 02/12/25 @ 10:35 by RADAMES Giordano) Constipation Change in bowel movement Night sweats EMERSON (iron deficiency anemia) Aneurysm of right common iliac artery Prediabetes Left leg numbness Left leg weakness Calcification of abdominal aorta IFG (impaired fasting glucose) Mild anemia Irregular heart rhythm Coronary artery disease PAC (premature atrial contraction) Essential hypertension Pure hypercholesterolemia PAD (peripheral artery disease) Surgical History (Updated 07/17/24 @ 13:13 by RADAMES Giordano) S/P partial lobectomy of lung S/P CABG x 4 Social History (Updated 02/12/25 @ 09:59 by Heidi Barrett [facility]) Housing: House Alcohol intake: never Patient Tobacco Use Status: Never used Tobacco e-Cigarette/Vaping Use: Never Used Second Hand Smoke Exposure: No service: No Current occupational status: retired Current occupational exposures/hazards: No Cognitive needs: No Hearing needs: Yes (hearing aids) Vision needs: No Questionnaire Thrive Questionnaire Date Thrive assessed: 07/17/24 EDDIE-7 AMB Questionnaire EDDIE-7 Date EDDIE - 7 assessed: 07/17/24 Source: Developed by Drs. Rober Garrido, Matilda Martin, Tyree Lorenzo and colleagues, with an educational madison from [employer]. Physical exam (Primary Care) Vital Signs: Last Vital Signs Temp 97.8 F 02/12/25 09:59 Pulse 83 02/12/25 09:59 Resp 13 02/12/25 09:59 BP 116/64 02/12/25 09:59 Pulse Ox 97 02/12/25 09:59 Oxygen Delivery Method Room Air 02/12/25 09:59 BMI result Body Mass Index 26.5 Tobacco/Smoking Status: Tobacco use Status Tobacco use date assessed 02/12/25 02/12/25 10:02 Patient Tobacco Use Status Never used Tobacco 02/12/25 09:59 e-Cigarette/Vaping Use Never Used 02/12/25 09:59 Thrive Assessment: Date of Thrive Assessment Date Thrive assessed 07/17/24 02/12/25 09:51 Results Reviewed Results Reviewed: Laboratory Tests 07/18/24 08/21/24 10/06/24 09:42 11:15 09:51 WBC 7.0 8.7 RBC 4.31 L 3.96 L Hgb 13.7 L 12.5 L Hct 39.4 L 37.2 L Plt Count 279 333 Iron 49 127 TIBC 197 L 234 % Saturation 25 54 H Unsat Iron Binding 148 107 Ferritin 226 Coding Level of Care Code Est Pt Level 4 (70682) Complex EM visit Add On G2211 Diagnoses EMERSON (iron deficiency anemia) D50.9 Change in bowel movement R19.8 Night sweats R61 Constipation K59.00 Prediabetes R73.03 Essential hypertension I10 Pure hypercholesterolemia E78.00 PAD (peripheral artery disease) I73.9 Coronary artery disease I25.10 Aneurysm of right common iliac artery I72.3 Assessment & Plan Assessment & Plan (1) EMERSON (iron deficiency anemia): Code(s): D50.9 - Iron deficiency anemia, unspecified Category: Medical Plan: Patient has iron-deficiency anemia and is reporting night sweats, constipation and change in bowel movements within the past few months. This is concerning for malignancy. I explained this to the patient. I am ordering a chest x-ray and urgent CAT scan of the abdomen and pelvis to look for evidence of systemic disease and masses. He will have lab work done today. See detailed list below. I am going to refer him anew urgently to Gastroenterology, and I explained he may need to have a colonoscopy/EGD performed. Warning signs warranting ER evaluation reviewed with the patient. I will start him on a different iron supplement pending labs. (2) Change in bowel movement: Code(s): R19.8 - Other specified symptoms and signs involving the digestive system and abdomen Category: Medical (3) Night sweats: Code(s): R61 - Generalized hyperhidrosis Category: Medical (4) Constipation: Code(s): K59.00 - Constipation, unspecified Category: Medical Plan: Patient is using an [id number] supplement. See above plan. (5) Prediabetes: Code(s): R73.03 - Prediabetes Category: Medical Plan: Recommended low carbohydrate, low sugar diet. Monitor hemoglobin A1c. (6) Essential hypertension: Code(s): I10 - Essential (primary) hypertension Category: Medical Plan: Well-controlled. Continue valsartan and low-sodium diet. (7) Pure hypercholesterolemia: Code(s): E78.00 - Pure hypercholesterolemia, unspecified Category: Medical (8) PAD (peripheral artery disease): Code(s): I73.9 - Peripheral vascular disease, unspecified Category: Medical Plan: Continue management per [facility] vascular. LDL goal less than 70. (9) Coronary artery disease: Code(s): I25.10 - Atherosclerotic heart disease of [place] coronary artery without angina pectoris Category: Medical Plan: LDL goal less than 70. Continue rosuvastatin 10 mg daily. Continue baby aspirin. Blood pressure is well-controlled on valsartan. Followed by Cardiology. (10) Aneurysm of right common iliac artery: Code(s): I72.3 - Aneurysm of iliac artery Category: Medical Plan: Followed by [facility] vascular. Plan Tentative follow up in 1 month. Orders: Orders UA w Microscopic Today D50.9 - Iron deficiency anemia, unspecified, R39.9 - Unspecified symptoms and signs involving the genitourinary system, R61 - Generalized hyperhidrosis, R73.03 - Prediabetes Urine Culture Today D50.9 - Iron deficiency anemia, unspecified, R39.9 - Unspecified symptoms and signs involving the genitourinary system, R61 - Generalized hyperhidrosis, R73.03 - Prediabetes Lipase Today D50.9 - Iron deficiency anemia, unspecified, R61 - Generalized hyperhidrosis, R73.03 - Prediabetes Complete Blood Count Auto Diff Today D50.9 - Iron deficiency anemia, unspecified, R61 - Generalized hyperhidrosis, R73.03 - Prediabetes Erythrocyte Sedimentation Rate Today D50.9 - Iron deficiency anemia, unspecified, R61 - Generalized hyperhidrosis, R73.03 - Prediabetes Hemoglobin A1c Today D50.9 - Iron deficiency anemia, unspecified, R61 - Generalized hyperhidrosis, R73.03 - Prediabetes, R73.9 - Hyperglycemia, unspecified Lactate Dehydrogenase Today R61 - Generalized hyperhidrosis CT abdomen pelvis w IV con Today D50.9 - Iron deficiency anemia, unspecified, K59.00 - Constipation, unspecified, R19.8 - Other specified symptoms and signs involving the digestive system and abdomen, R61 - Generalized hyperhidrosis AMB Hemoglobin A1c Today D50.9 - Iron deficiency anemia, unspecified, R61 - Generalized hyperhidrosis, R73.03 - Prediabetes TSH reflex Free T4 Today D50.9 - Iron deficiency anemia, unspecified, R61 - Generalized hyperhidrosis, R73.03 - Prediabetes Amylase Today D50.9 - Iron deficiency anemia, unspecified, R61 - Generalized hyperhidrosis, R73.03 - Prediabetes Ferritin Today D50.9 - Iron deficiency anemia, unspecified, D64.9 - Anemia, unspecified, R61 - Generalized hyperhidrosis, R73.03 - Prediabetes IRON PROFILE Today D50.9 - Iron deficiency anemia, unspecified, D64.9 - Anemia, unspecified, R61 - Generalized hyperhidrosis, R73.03 - Prediabetes Prostate Specific Antigen Today D50.9 - Iron deficiency anemia, unspecified, R61 - Generalized hyperhidrosis, R73.03 - Prediabetes, Z12.5 - Encounter for screening for malignant neoplasm of prostate Comprehensive Met. Panel Today D50.9 - Iron deficiency anemia, unspecified, R61 - Generalized hyperhidrosis, R73.03 - Prediabetes XR chest 2V Today D64.9 - Anemia, unspecified, R61 - Generalized hyperhidrosis Referrals Gastroenterology Referral D50.9 - Iron deficiency anemia, unspecified, K59.00 - Constipation, unspecified, R19.8 - Other specified symptoms and signs involving the digestive system and abdomen, R61 - Generalized hyperhidrosis
[2025-02-12 09:59] VITALS: BP 116/64; PULSE 83; RESP 13; TEMP 36.6; O2SAT 97; BMI 26.5
--- OUTSIDE RECORDS SUMMARY | 2025-02-12 11:22 | XMS_ITS | Patient Health Record ---
Author Organization [facility] Address [address] [place] [address] Care Team Providers Care Field Examiner Name Role Phone Matilde Mata Primary Care Provider Unava ilable Allergies No Known Allergies Reason For Referral No Information Medications Medication SIG (Take, Route, Frequency, Duration) Notes Start Date End Date Status Ciclopirox 0.77 % 1 application to eac h affected toenail Externally Once a day; Duration: 90 days 10/14/2020 Active Diclofenac Sodium 1 % 1 gm to the outsid e of each foot as directed Externally Twice a day; Duration: 30 day(s) Active Meclizine HCl 25 MG [...] [place] [address] [place] [phone] [id number] Yemi Cantu Self - patient is the insured [employer] and [facility] [address] [place] [phone] [id number] Yemi Cantu Self - patient is the [...] hypertension I10 Atherosclerotic heart diseas e of [place] coronary artery without angina pectoris I25.10 Benign prostatic hyperplasia (N40.0) 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
--- OUTSIDE RECORDS SUMMARY | 2025-02-12 11:22 | XMS_ITS ---
Author Name [facility] Organization Unknown Care Team Organization Name Specialty Phone Email Start Date End Da te [facility] Termed, PROVIDER Primary Care 03/07/202211/28
== END 2025-02-12 10:46 | disposition home or self-care (01) ==
LOC: HO.HMCFM 09:46
PROVIDERS: PCP Physician Assistant Medical; Visit Provider Physician Assistant Medical
DX: D50.9 Iron deficiency anemia, unspecified (principal); R19.8 Other specified symptoms and signs involving the digestive system and abdomen; R61 Generalized hyperhidrosis; K59.00 Constipation, unspecified; R73.03 Prediabetes; I10 Essential (primary) hypertension; E78.00 Pure hypercholesterolemia, unspecified; I73.9 Peripheral vascular disease, unspecified; I25.10 Atherosclerotic heart disease of native coronary artery without angina pectoris; I72.3 Aneurysm of iliac artery

== ENCOUNTER 2025-02-12 09:45 | Outpatient (REF) | payer MEDICARE, SELFPAY ==
[2025-02-12 13:55] LABS: MANUAL DIFF FLAG NO
[2025-02-12 14:01] LABS: Hematocrit 38.4 % (42.0-52.0); Hemoglobin 12.9 g/dl (14.0-18.0); Imm Gran Abs Auto 0.04 X10*3/uL (0.00-0.03); Imm Gran Pct Auto 0.5 % (0.0-0.4); Lymphocytes Absolute Auto 1.6 X10*3/uL (1.2-4.9); Mean Corpuscular HGB Conc 33.6 g/dl (31.0-36.0); Mean Corpuscular Hemoglobin 30.3 pg (27.0-33.0); Mean Corpuscular Volume 90.1 fL (80.0-98.0); NRBC Abs Auto 0.000 X10*3/uL (0.0-0.012); NRBC Pct Auto 0.0 /100WBC (0.0-0.2); Platelet Count 311 X10*3/uL (160-400); Red Blood Count 4.26 X10*6/uL (4.60-5.80); White Blood Count 8.7 X10*3/uL (4.8-10.8)
[2025-02-12 14:44] LABS: Erythrocyte Sedimentation Rate 48 MM/HR (0-15)
[2025-02-12 15:00] LABS: Alanine Aminotransferase < 6 U/L (0-40); Albumin Level 4.0 g/dL (3.5-5.0); Alkaline Phosphatase 90 U/L (39-117); Amylase 43 U/L (28-100); Anion Gap 10 (12-20); Aspartate Amino Transferase 22 U/L (5-37); Blood Urea Nitrogen 21 mg/dL (9-16); Calcium 9.0 mg/dL (8.4-10.2); Carbon Dioxide 23 mmol/L (22-29); Chloride 110 mmol/L (96-108); Estimated Glomerular Filt Rate > 60; Ferritin 250 ng/mL (20-250); Iron 64 mcg/dL (45-160); Lipase 42 U/L (8-78); Percent Iron Saturation 31 % (15-50); Potassium 4.4 mmol/L (3.3-5.1); Sodium 139 mmol/L (135-145); Total Iron Binding Capacity 208 mcg/dL (228-428); Total Protein 6.9 g/dL (6.5-8.0); Unsaturated Iron Binding 144 ug/dL
[2025-02-12 15:08] LABS: Prostate Specific Antigen 13.35 ng/mL (<0.05-4.0)
[2025-02-12 17:52] LABS: Appearance Urine Clear; Glucose Urine UA Negative (Negative); PH 5.5 (5.0-9.0); Specific Gravity - Urine 1.010 (1.005-1.025); UMIC TRIGGER UA YES
== END 2025-02-12 09:46 | disposition home or self-care (01) ==
LOC: HO.WFDLDS 09:45
PROVIDERS: PCP Physician Assistant Medical; Visit Provider Physician Assistant Medical
DX: R73.03 Prediabetes (principal); D50.9 Iron deficiency anemia, unspecified; R61 Generalized hyperhidrosis; K59.00 Constipation, unspecified; I10 Essential (primary) hypertension; E78.5 Hyperlipidemia, unspecified; I73.9 Peripheral vascular disease, unspecified; J43.9 Emphysema, unspecified; R19.8 Other specified symptoms and signs involving the digestive system and abdomen; E78.00 Pure hypercholesterolemia, unspecified; I25.10 Atherosclerotic heart disease of native coronary artery without angina pectoris; I72.3 Aneurysm of iliac artery; R73.9 Hyperglycemia, unspecified; Z12.5 Encounter for screening for malignant neoplasm of prostate; Z79.899 Other long term (current) drug therapy; Z95.1 Presence of aortocoronary bypass graft
CPT/HCPCS: 36415; 80053; 81001; 82150; 82728; 83036; 83540; 83615; 83690; 84153; 84443; 85025; 85652; 87086; 99212

== ENCOUNTER 2025-03-16 10:04 | Outpatient (AMB) | payer MEDICARE, SELFPAY ==
--- NOTE | 2025-03-16 10:15 | A.OFFPC_ITS ---
Vital Signs 03/16/25 10:18 Height 5 ft 6 in Weight 166 lb BMI 26.8 BP 128/58 L Blood Pressure Location Lt brachial Position Sitting Respiration 14 Pulse 87 Pulse Source Pulse Oximeter Pulse Oximetry (%) 97 Oxygen Delivery Method Room Air Intake Visit Reasons: follow up anemia Intake Note: Follow up [employer] Required: No Allergies No Known Allergies Allergy (Verified 03/16/25 10:16) Tobacco use date assessed: 03/16/25 Fall risk assessment: No Falls in past year Last assessed Fall Risk: 03/16/25 Dental Screening Dental Screen Date: 02/12/25 HPI HPI Comments History of Present Illness Details This is a 80-year-old male with a past medical history of hypertension, hyperlipidemia, peripheral arterial disease and coronary artery disease presenting for follow up. Patient was started on ferrous sulfate and instructed to repeat labs for anemia. He stopped taking the iron pill a couple of months ago because he says after he started taking it he experienced constipation and night sweats. He reported even though he stopped taking it he continued to have constipation and also reported night sweats. He has fluctuated between 162 and 180 lb over the past 6 months. Weight is up 2 lb since his last visit. He was referred to Gastroenterology, and he scheduled the appointment 01/07/2025, but he says he ended up cancelling it. I explained why it was necessary to see them, and they reached out again, and the patient declined it. Denies black or bloody stools. Sometimes stools are skinny and smaller, and sometimes they appear more normal. Denies abdominal pain, appetite change, nausea, vomiting. No recent colonoscopy. FOBT was ordered but not completed by patient. I ordered a chest x-ray which was read as having a right large right pleural effusion. Patient denied respiratory symptoms. He then had a CT scan of the abdomen/pelvis/chest with contrast. This showed prostatomegaly with some posterior bulging of the prostate base with focal enhancement. There was also bladder wall thickening. There was severe colonic diverticulosis but no diverticulitis. There was also an opacification of the right lower lobe bronchus with some downstream patchy airspace opacity concerning for aspiration pneumonia. A short term follow up CT was recommended. He was referred to [facility] thoracic surgery, but when he was contacted he told them that he had scar tissue in the right lung from having surgery some 30 years ago so they said he did not meet need to be seen unless the abnormal finding persists.. I placed him on Augmentin and azithromycin which he completed to cover for possible aspiration pneumonia as he was reporting night sweats. He completed the medications. He presently denies cough, wheezing, chest pain, shortness of breath or hemoptysis. He was referred to Urology, but he says he did not schedule this appointment either though they did reach out. He says he was confused about why he needed the appointment. His PSA level came back elevated as well as his sed rate at 13.35 and 48 respectively. His hemoglobin A1c is 6.4%. Renal function and hepatic function are normal. Most recent CBC from 02/12/2025 showed RBC 4.26, hemoglobin 12.9 and hematocrit 38.4. Patient also says since he stopped using an electric blanket at night the night sweats stopped. Peripheral arterial disease-bilateral lower extremities. Followed by [facility] vascular surgery. Patient has a right carotid artery occlusion, and the left carotid artery also has stenosis around 50%. They are monitoring this. He is on ASA 81 mg and rosuvastatin. 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 Coronary artery disease-CABG x [address] some [address] Candelario. Released from cardiology follow up. Denies chest pain, palpitations, shortness of breath, dizziness and leg swelling. HTN-treated with valsartan 160 mg daily. Hyperlipidiemia-treated with rosuvastatin 10 mg daily. Emphysema-never smoked but had a lot of second hand smoke exposure. States he is is up-to-date with RSV, COVID, flu and pneumonia vaccine. ROS: Constitutional: No unexplained weight loss, fever, chills, increase fatigue . Patient says night sweats resolved. Eyes: No vision changes, blurry vision, double vision, eye pain, eye redness, eye discharge. ENT: No hearing loss, sneezing, congestion, runny nose or sore throat. Respiratory: No shortness of breath, cough or sputum production. Denies hemoptysis. Cardiovascular: No chest pain, chest pressure or chest discomfort. No palpitations or pedal edema. : Denies hematuria, frequency, hesitancy, nocturia, dysuria, bladder pressure, flank pain Gastrointestinal: No anorexia, nausea, vomiting or diarrhea. No abdominal pain or blood in stool. +change in stools and constipation. Neurologic: No headache, dizziness, syncope, unilateral weakness, ataxia, numbness or tingling in the extremities. Musculoskeletal: No muscle pain, back pain, joint pain or swelling. Hematologic/Lymphatics: No bleeding or bruising. No painful lymph nodes. Skin: No rash Physical exam: Constitutional: Alert, in no distress. Eyes: PERRL, EOMI, no conjunctival pallor Mouth/throat: No lesions, erythema, pallor Neck: Supple, Full range of motion. No lymphadenopathy. No palpable thyroid masses or neck masses. Respiratory: Clear to auscultation. Cardiovascular: S1 S2 regular. No murmurs. Gastrointestinal: Abdomen soft, non-tender, non-distended. Normal bowel sounds in 4 quadrants. No palpable masses. No rebound or guarding. Neurologic: No focal neurological deficits. Extremities: Warm and well perfused. No clubbing, cyanosis or edema. Psychiatric: Normal mood and affect [facility] Medical History (Updated 03/16/25 @ 13:45 by RADAMES Giordano) Abnormal chest CT Enlarged prostate Pleural effusion, right Elevated PSA Constipation Change in bowel movement Night sweats EMERSON (iron deficiency anemia) Aneurysm of right common iliac artery Prediabetes Left leg numbness Left leg weakness Calcification of abdominal aorta IFG (impaired fasting glucose) Mild anemia Irregular heart rhythm Coronary artery disease PAC (premature atrial contraction) Essential hypertension Pure hypercholesterolemia PAD (peripheral artery disease) Surgical History S/P partial lobectomy of lung S/P CABG x 4 Social History (Updated 03/16/25 @ 10:35 by Alice Iverson CMA) Housing: House Alcohol intake: never Patient Tobacco Use Status: Never used Tobacco e-Cigarette/Vaping Use: Never Used Second Hand Smoke Exposure: No service: No Current occupational status: retired Current occupational exposures/hazards: No Cognitive needs: No Hearing needs: Yes (hearing aids) Vision needs: No Questionnaire Thrive Questionnaire Date Thrive assessed: 07/17/24 EDDIE-7 AMB Questionnaire EDDIE-7 Date EDDIE - 7 assessed: 07/17/24 Source: Developed by Drs. Rober Garrido, Matilda B.W. Tyree Martin and colleagues, with an educational madison from [employer]. Physical exam (Primary Care) Vital Signs: Last Vital Signs Pulse 87 03/16/25 10:18 Resp 14 03/16/25 10:18 BP 128/58 L 03/16/25 10:18 Pulse Ox 97 03/16/25 10:18 Oxygen Delivery Method Room Air 03/16/25 10:18 BMI result Body Mass Index 26.8 Tobacco/Smoking Status: Tobacco use Status Tobacco use date assessed 03/16/25 03/16/25 10:21 Patient Tobacco Use Status Never used Tobacco 03/16/25 10:35 e-Cigarette/Vaping Use Never Used 03/16/25 10:35 Thrive Assessment: Date of Thrive Assessment Date Thrive assessed 07/17/24 03/16/25 10:21 Coding Level of Care Code Est Pt Level 5 (77482) Complex EM visit Add On G2211 Diagnoses Enlarged prostate N40.0 Elevated PSA R97.20 Change in bowel movement R19.8 Constipation K59.00 EMERSON (iron deficiency anemia) D50.[address] R93.89 Time Spent (min) 45 Comment Chart review, direct patient care, completing documentation Assessment & Plan Assessment & Plan (1) Enlarged prostate: Code(s): N40.0 - Benign prostatic hyperplasia without lower urinary tract symptoms Category: Medical (2) Elevated PSA: Code(s): R97.20 - Elevated prostate specific antigen [PSA] Category: Medical (3) Change in bowel movement: Code(s): R19.8 - Other specified symptoms and signs involving the digestive system and abdomen Category: Medical (4) Constipation: Code(s): K59.00 - Constipation, unspecified Category: Medical (5) EMERSON (iron deficiency anemia): Code(s): D50.9 - Iron deficiency anemia, unspecified Category: Medical (6) Abnormal chest CT: Code(s): R93.89 - Abnormal findings on diagnostic imaging of other specified body structures Category: Medical Plan I explained the necessity of seeing Gastroenterology due to anemia and constipation and elevated sed rate. I would like him to have the consult to discuss getting a colonoscopy. Patient understands this. I advised him to reach out to Gastroenterology, and we will also contact [facility] Gastroenterology to ask them to reach out to the patient. I also explained the necessity of seeing Urology due to elevated PSA and abnormal imaging of the prostate. MRI has also been requested. Patient agreeable to consult. We will contact the urologist office to have the patient scheduled. Patient to have UA and culture. This was already ordered. He completed antibiotics for possible aspiration pneumonia though CT findings may be due to remote history of surgery. He has a repeat chest CT that we will be done at [place] ordered. He will schedule a follow up appointment with me in 6 weeks.
[2025-03-16 10:18] VITALS: BP 128/58; PULSE 87; RESP 14; O2SAT 97; BMI 26.8
--- OUTSIDE RECORDS SUMMARY | 2025-03-16 20:54 | XMS_ITS | Patient Health Record ---
Author Organization [facility] Address [address] [place] [address] Care Team Providers Care Freight Rate Clerk Name Role Phone Matilde Mata Primary Care [...] [place] [address] [place] [phone] [id number] Yemi Cantu Self - patient is the insured [employer] and [facility] [address] [place] [phone] [id number] Yemi Cantu Self - patient is the [...] hypertension I10 Atherosclerotic heart diseas e of [place] coronary artery without angina pectoris I25.10 Benign prostatic hyperplasia (N40.0) 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
== END 2025-03-16 10:48 | disposition home or self-care (01) ==
LOC: HO.HMCFM 10:04
PROVIDERS: PCP Physician Assistant Medical; Visit Provider Physician Assistant Medical
DX: D50.9 Iron deficiency anemia, unspecified (principal); N40.0 Benign prostatic hyperplasia without lower urinary tract symptoms; R97.20 Elevated prostate specific antigen [PSA]; R19.8 Other specified symptoms and signs involving the digestive system and abdomen; K59.00 Constipation, unspecified; R70.0 Elevated erythrocyte sedimentation rate; R93.89 Abnormal findings on diagnostic imaging of other specified body structures

== ENCOUNTER → 2025-03-16 10:04 | Outpatient (BNVA) | payer MEDICARE, SELFPAY | PROVIDERS: PCP Physician Assistant Medical; Visit Provider Physician Assistant Medical | DX: D50.9 Iron deficiency anemia, unspecified (principal); R19.8 Other specified symptoms and signs involving the digestive system and abdomen; K59.00 Constipation, unspecified; R93.89 Abnormal findings on diagnostic imaging of other specified body structures; I10 Essential (primary) hypertension; I25.10 Atherosclerotic heart disease of native coronary artery without angina pectoris; I65.23 Occlusion and stenosis of bilateral carotid arteries; I73.9 Peripheral vascular disease, unspecified; E78.5 Hyperlipidemia, unspecified; N40.0 Benign prostatic hyperplasia without lower urinary tract symptoms; R97.20 Elevated prostate specific antigen [PSA]; Z95.1 Presence of aortocoronary bypass graft | CPT/HCPCS: 99212 ==